=== PATIENT | female | born 1940 | race Caucasian/White ===

== ENCOUNTER 2016-07-05 09:16 | Inpatient (IN) | payer MEDICARE, BC, OTHER ==
[~2016-07-05] VITALS: Ht 161.9 cm; Wt 63.5 kg
[2016-07-05 11:00] VITALS: BP 145/57
[2016-07-05] MEDS ORDERED: MAGNESIUM SULFATE 2GM 50 ML IV PRN (11:45)
--- NOTE | 2016-07-05 11:48 | PDOC2 ---
CONSULT Date of Consult Date of Consult DATE: 07/05/16 TIME: 11:36 Reason for Consult Reason for Consult: ESRD and ? early uremic s/s Referring Physician Referring Physician: Dr Christensen Identification/Chief Complaint Chief Complaint ^ed daytime somnolences, Anorexia and needing to start Hd Problems: Source Source: Chart review, Patient History of Present Illness Reason for Visit: as dictated Past Medical History Cardiovascular: CAD, CHF, HTN, Hyperlipidemia ROS Review of System GEN: no Fevers no Chills EYES: no new Visual Complaints ENT: no EN Drainage no Hearing deficiets CVS: no Orthopnea no CP RESP: + SOB ++ ORTEGA GI: min Nausea no Vomiting : no Dysuria no Urgency HEME: no easy bruising no Palp Ly Nodes NEURO no Focal Weakness no Sz PSYCH: no Suicidal Ideation no Depression SKIN: no Rashes ENDO: no Polyuria or Polydipsia no Hot/Cold Intolerance MU SK: no Arthraigia no Myalgia Physical Exam Physical Exam General Appearance: Awake Alert Oriented x 3 In no Distress Eyes: VIsion Unchanged Conjunctiva Normal EN: No EN Drainage Mucous Memb. moist Neck: no JVD min JVP Supple no Thyromegaly CVS: S1 S2 + Murmur No Gallop No Rub + Edema Resp: no Rales no Rhonchi no Acc. Muscle use GI: BAS +ve NO Bruit Non Tender Non Distended : no CVA tenderness; no Suprapubic Tenderness SKIN: no Rashes Breast Exam deferred Mu.Sk: Adequate ROM no Muscle Atrophy Heme: Unable to palpate Obvious LAD n opalp Splenomegaly NEURO: Good Strength and Tone Cranial Nerves II - XII grossly intact Psych: somewhat Depressed no Active hallucination Vital Signs Vital Signs Date Time Temp Pulse Resp B/P Pulse Ox O2 Delivery O2 Flow Rate FiO2 07/05/16 11:00 97.7 64 18 145/57 97 Room Air 97.7 Assessment & Plan ESRD: Dialysis as below F 180 NR 3.0 Hrs 3 K 2.5 Ca 140 Na 30 HC03 Qb 350 + Qd 500+ Heparin Units Uf 0.5 Kgs or to dry weight as tolerated May give 25-50 gms of 25% Albumin if needed to maintain Hemodynamic stability Treatment plan reviewed and discussed with camera person Anemia: start Epogen; Transfuse with next HD as needed once hgb avail, just got IVFe HTN: Current BP meds reviewed. See orders for changes. Edema - reval with Uf H/o CHF (Sys + Diastolic) - Uf with HD gradually Discussed Plan of Care and prognosis etc. at length with family. ISELA LYNN MD Jul 05, 2016 11:48
[2016-07-05] MEDS ORDERED: INSU100C4 SQ ×4 (11:51→14:36)
[2016-07-05] MEDS ORDERED: GLUC1KIT IM (11:51)
[2016-07-05] MEDS ORDERED: PRAV40TA2 PO (11:51)
[2016-07-05] MEDS ORDERED: CHOL20004 PO (11:51)
[2016-07-05] MEDS ORDERED: AMLO5TAB2 PO (11:51)
[2016-07-05] MEDS ORDERED: ALLO100T PO (11:51)
[2016-07-05] MEDS ORDERED: TRAZ50TA15 PO (11:51)
[2016-07-05] MEDS ORDERED: FURO80TA72 PO (11:51)
[2016-07-05] MEDS ORDERED: AMIO200T2 PO (11:51)
[2016-07-05] MEDS ORDERED: GLUC1CAP48 PO (11:51)
[2016-07-05] MEDS ORDERED: FLUT9.9S NS (11:51)
[2016-07-05] MEDS ORDERED: FAMO20TA5 PO (11:51)
[2016-07-05] MEDS ORDERED: CARV6.25 PO (11:51)
[2016-07-05] MEDS ORDERED: NITR0.4T SL (11:51)
[2016-07-05] MEDS ORDERED: VITA1CAP PO (11:51)
[2016-07-05] MEDS ORDERED: INSU100V8 SQ (11:51)
[2016-07-05] MEDS ORDERED: TRAM50TA PO (11:51)
[2016-07-05] MEDS ORDERED: SENN176S3 PO (11:51)
[2016-07-05] MEDS ORDERED: HYDR-2867 PO (11:51)
[2016-07-05] MEDS ORDERED: OMEG1CAP38 PO (11:51)
[2016-07-05] MEDS ORDERED: FOLI1TAB16 PO (11:51)
[2016-07-05] MEDS ORDERED: METO10TA81 PO (11:51)
[2016-07-05] MEDS ORDERED: LEVO125T PO (11:51)
[2016-07-05] MEDS ORDERED: ASCO-78 PO (11:51)
[2016-07-05] MEDS ORDERED: ASPI-482 PO (11:51)
[2016-07-05 12:10] LABS: INR 2.1 (0.8-1.1); PROTHROMBIN TIME PATIENT 22.2 SEC (11.7-14.0)
[2016-07-05] MEDS ORDERED: LIDOCAINE 1% / SOD BICARB 8.4% 20 ML VIAL. IJ ONE (12:45)
[2016-07-05] MEDS ORDERED: HEPARIN for IV BOLUS 10,000 UNIT/10 ML VIAL. ONE (12:48)
--- NOTE | 2016-07-05 13:47 | PDOC ---
Exam Commander Internal Affairs Commander Internal Affairs Marlyn Batch And Furnace Manager Batch And Furnace Manager F Ndumbu Pre-Procedure Diagnosis Pre-Procedure Diagnosis New ESRD. Coagulopathy. Temp HDC requested for HD. Post-Procedure Diagnosis Post-Procedure Diagnosis Same Procedure Performed Procedure Performed Image guided temp HDC insertion today---tunneled HDC insertion planned for . Type of Anesthesia Type of Anesthesia Local Estimated Blood Loss EBL: Minimal Drain/Tubes Drains/Tubes Left IJ 14F 20cm Schon Temp HDC Condition of Patient Condition of Patient Stable. No apparent complication. Disposition Disposition From IR return to [facility]. F/u with Renal. OK to use Temp HDC. Full report to follow. Conversion from Temp to tunneled HDC planned . ZARIA FENG MD Jul 05, 2016 13:47
[2016-07-05 14:37] VITALS: BP 140/60
[2016-07-05] MEDS ORDERED: NITROGLYCERIN SUBLINGUAL 0.4 MG BOTTLE OF 25. SL PRN (14:45)
[2016-07-05] MEDS ORDERED: DEXTROSE 50% 25 GM / 50ML DISP.SYRIN. IV PRN (14:45)
[2016-07-05] MEDS ORDERED: METOCLOPRAMIDE 10 MG TABLET PO PRN (14:45)
[2016-07-05] MEDS: ALLOPURINOL 100 MG TABLET. PO SCH (15:37)
[2016-07-05] MEDS: LEVOTHYROXINE 125 MCG TABLET PO SCH (15:37)
[2016-07-05] MEDS: FOLIC ACID 1 MG TABLET PO SCH (15:37)
[2016-07-05] MEDS: AMIODARONE HCL 200 MG TABLET PO SCH (15:37)
--- NOTE | 2016-07-05 16:14 | RAD ---
PA and lateral chest radiographs 07/05/2016 Clinical history: CHF. PA and lateral digital radiographs of the chest were obtained. The patient is status post CABG procedure. The cardiac silhouette is mildly enlarged. The thoracic aorta is tortuous. Prominence of the interstitial markings in both lungs is seen. Septal lines are seen bilaterally. These findings are consistent with interstitial pulmonary edema related to CHF. There is a minimal left pleural effusion. No area of consolidation is seen. No pneumothorax is noted. There is diffuse osteopenia of the visualized bony structures. Degenerative changes are seen involving the thoracic spine. Impression: Findings consistent with CHF.
[2016-07-05] MEDS ORDERED: WARF2TAB7 PO (16:36)
--- NOTE | 2016-07-05 16:52 | PDOC1 ---
History and Physical Date of Admission Date of Admission DATE: 07/05/16 TIME: 16:46 Identification/Chief Complaint Chief Complaint ESRD Source Source: Chart review, Patient History of Present Illness History of Present Illness pt has long hx CKD 4, was in Dr. Matos clinic today for f/u, labs had worsened , now ESRD, clinic called for direct admit for ESRD, some change in LE edema, pt largely feels well she has 66 yr history of Dm1, has very precise insulin doses, has worsening retinopathy, and reports is nearly blind, has known about CKD for some time, but was not wanting to start tx for ESRD Past Medical History Cardiovascular: CAD, CHF, HTN, Hyperlipidemia Pulmonary: No pertinent hx GI: No pertinent hx Heme/Onc: No pertinent hx Hepatobiliary: No pertinent hx Psych: No pertinent hx Rheumatologic: No pertinent hx Infectious disease: No pertinent hx Endocrine: Diabetes Family History Family History: No Significant Social History Smoke: No ALCOHOL: none Drugs: None Current Problem List Problem List Problems Medical Problems: (1) Acute renal failure (ARF) Status: Acute Problems: Current Medications Current Medications Current Medications Magnesium Sulfate/ Dextrose (Magnesium Sulfate PREMIX 2GM) 50 ml @ 25 mls/hr PRN DAILY PRN IV for Mag < 1.7 on am labs; Start 07/05/16 at 11:45 Heparin Sodium (Porcine) 2,500 unit 1X ONCE INT CAT Last administered on 13:15; Start 07/05/16 at 12:45; Stop 07/05/16 at 12:46; Status DC Heparin Sodium/ Sodium Chloride 1,000 unit 1X ONCE IV Last administered on 07/05 13:27; Start 07/05/16 at 12:45; Stop 07/05/16 at 12:46; Status DC Lidocaine/Sodium Bicarbonate (Buffered Lidocaine 1%) 3 ml 1X ONCE IJ Last administered on 07/05/16 13:26; Start 07/05/16 at 12:45; Stop 07/05/16 at 12:46; Status DC Heparin Sodium (Porcine) 10,000 unit STK-MED ONCE .ROUTE ; Start 07/05/16 at 12: 48; Stop 07/05/16 at 12:49; Status DC Allopurinol (Zyloprim) 100 mg DAILY PO Last administered on 07/05/16 15:37; Start 07/05/16 at 15:30 Amiodarone HCl (Cordarone) 200 mg DAILY PO Last administered on 07/05/16 15:37 ; Start 07/05/16 at 15:30 Amlodipine Besylate (Norvasc) 5 mg HS PO ; Start 07/05/16 at 21:00 Aspirin (Ecotrin) 81 mg BID PO ; Start 07/05/16 at 21:00 Carvedilol (Coreg) 6.25 mg BIDWMEALS PO ; Start 07/05/16 at 17:00 Famotidine (Pepcid) 20 mg BID PO ; Start 07/05/16 at 21:00 Folic Acid (Folic Acid) 1 mg DAILY PO Last administered on 07/05/16 15:37; Start 07/05/16 at 15:30 Hydralazine HCl (Apresoline) 10 mg BID PO ; Start 07/05/16 at 21:00 Levothyroxine Sodium (Synthroid) 125 mcg DAILYAC PO Last administered on 15:37; Start 07/05/16 at 15:30 Metoclopramide HCl (Reglan) 10 mg PRN QID PRN PO NAUSEA; Start 07/05/16 at 14:45 Nitroglycerin (Nitrostat) 0.4 mg PRN Q5MIN PRN SL CHEST PAIN; Start 07/05/16 at 14:45 Sennosides (Senna) 8.6 mg QHS PO ; Start 07/05/16 at 21:00 Tramadol HCl (Ultram) 50 mg BID PO ; Start 07/05/16 at 21:00 Trazodone HCl (Desyrel) 50 mg HS PO ; Start 07/05/16 at 21:00 Fluticasone Propionate (Flonase) 2 spray DAILY NS ; Start 07/06/16 at 09:00 Insulin Aspart (Novolog) 2 units DAILYWSUP SQ ; Start 07/05/16 at 17:00 Insulin Aspart (Novolog) 5 units DAILYWLUN SQ ; Start 07/06/16 at 12:00 Insulin Aspart (Novolog) 6 units DAILYWBKFT SQ ; Start 07/06/16 at 08:00 Insulin Detemir (Levemir) 7 units QHS SQ ; Start 07/05/16 at 21:00 Fish Oil (Fish Oil) 1,000 mg DAILY PO ; Start 07/06/16 at 09:00 Atorvastatin Calcium (Lipitor) 10 mg QHS PO ; Start 07/05/16 at 21:00 Insulin Aspart (Novolog) 0-5 UNITS TIDWMEALS SQ ; Start 07/05/16 at 17:00 Dextrose 12.5 gm PRN Q15MIN PRN IV SEE COMMENTS; Start 07/05/16 at 14:45 Active Scripts Active Reported Warfarin Sodium 2 Mg Tablet 2 Mg PO DAILY Novolog (Insulin Aspart) 100 Unit/1 Ml Cartridge 2 Unit SQ DAILYWSUP Novolog (Insulin Aspart) 100 Unit/1 Ml Cartridge 5 Unit SQ DAILYWLUN Novolog (Insulin Aspart) 100 Unit/1 Ml Cartridge 6 Unit SQ DAILYWBKFT Hydralazine Hcl 10 Mg Tablet 10 Mg PO BID Vitamin B Complex 1 Each Capsule 1 Each PO Vitamin C (Ascorbate Calcium) 500 Mg Tablet 500 Mg PO Vitamin D-3 (Cholecalciferol (Vitamin D3)) 2,000 Unit Capsule 1,000 Unit PO Tramadol Hcl 50 Mg Tablet 1 Tab PO BID Trazodone Hcl 50 Mg Tablet 50 Mg PO HS Senna (Senna Brave Extract) 176 Mg/5 Ml Syrup 176 Mg PO HS Reglan (Metoclopramide Hcl) 10 Mg Tablet 10 Mg PO QIDACHS PRN Pravastatin Sodium 40 Mg Tablet 40 Mg PO HS Famotidine 20 Mg Tablet 20 Mg PO BID [place] 3 Fish Oil Softgel ([place]-3 Fatty Acids/Fish Oil) 1 Each Capsule. 1 Each PO DAILY Nitrostat (Nitroglycerin) 0.4 Mg Tab.subl 0.4 Mg SL PRN Q5MIN PRN Synthroid (Levothyroxine Sodium) 125 Mcg Tablet 125 Mcg PO DAILYAC Lasix (Furosemide) 80 Mg Tablet 80 Mg PO BID Lantus (Insulin Glargine,Hum.rec.anlog) 100 Unit/1 Ml Vial 7 Unit SQ HS Glucosamine & Chondroitin Cap (Gluc 2KCL/Chondr/Ashley Hy/Hy Ac) 1 Each Capsule 1 Each PO BID Glucagon Emergency Kit (Glucagon,Human Recombinant) 1 Mg Kit 1 Mg IM Folic Acid 1 Mg Tablet 1 Mg PO DAILY Flonase Allergy Relief (Fluticasone Propionate) 9.9 Ml [place].susp 2 Sprays NS DAILY Coreg (Carvedilol) 6.25 Mg Tablet 1 Tab PO BID Aspir 81 (Aspirin) 81 Mg Tablet.dr 1 Tab PO BID Amiodarone Hcl 200 Mg Tablet 1 Tab PO DAILY Allopurinol 100 Mg Tablet 1 Tab PO DAILY Amlodipine Besylate 5 Mg Tablet 5 Mg PO HS Allergies Allergies: Coded Allergies: Penicillins (Verified Allergy, Intermediate, 07/05/16) iodine (Verified Allergy, Intermediate, 07/05/16) isosorbide (Verified Allergy, Intermediate, 07/05/16) metoprolol (Verified Allergy, Intermediate, 07/05/16) nitrofurantoin (Verified Allergy, Intermediate, 07/05/16) povidone (Verified Allergy, Intermediate, 07/05/16) sulfamethoxazole (Verified Allergy, Intermediate, 07/05/16) trimethoprim (Verified Allergy, Intermediate, 07/05/16) ROS General: YES: Fatigue, No: Appetite, Chills, Malaise, Night Sweats, Other PSYCHOLOGICAL ROS: No: Anxiety, Behavioral Disorder, Concentration difficultie , Decreased libido, Depression, Disorientation, Hallucinations, Hostility, Irritablity, Memory difficulties, Mood Swings, Obsessive thoughts, Other, Physical abuse, Sexual abuse, Sleep disturbances, Suicidal ideation Eyes: Yes Blurry vision, Yes Decreased vision, Yes Loss of vision, Yes Uses glasses, No Double vision, No Dry eyes, No Excessive tearing, No Eye Pain, No Itchy Eyes, No Other, No Photophobia, No Scotomata, No Uses contacts HEENT: No: Epistaxis, Heacaches, Hearing change, Nasal congestion, Nasal discharge, Oral lesions, Other, Sinus pain, Sneezing, Snoring, Sore Throat, Tinnitus, Vertigo, Visual Changes, Vocal changes Respiratory: No: Cough, Hemoptysis, Orthopnea, Other, Pleuritic Pain, SOB with excertion, Shortness of breath, Sputum Changes, Stridor, Tachypnea, Wheezing Cardiovascular: No Chest Pain, No Edema, No Lt Headedness, No Orthopnea, No Other, No Palpitations, No Paroxysmal Noc. Dyspnea Gastrointestinal: No Abdominal Pain, No Constipation, No Diarrhea, No Hematochezia, No Melena, No Nausea, No Other, No Vomiting Genitourinary: No , No , No , No , No , No , No , No Discharge, No Dysuria, No Flank Pain, No Frequency, No Hematuria, No Incontinence, No Other, No Pain, No Retention, No Urgency Neurological: No Behavorial Changes, No Bowel/Bladder ControlChng, No Confusion , No Dizziness, No Gait Disturbance, No Headaches, No Impaired Coord/balance, No Memory Loss, No Numbness/Tingling, No Other, No Seizures, No Speech Problems , No Tremors, No Visual Changes, No Weakness Skin: No Acne, No Dry Skin, No Eczema, No Hair Changes, No Lumps, No Mole Changes, No Mottling, No Nail Changes, No Other, No Pruritus, No Rash, No Skin Lesion Changes Physical Exam General: Alert, Oriented X3, Cooperative, No acute distress HEENT: Atraumatic, PERRLA, Other (poor vision, grossly) Lungs: Clear to auscultation Heart: S1S2, no murmurs Abdomen: Normal bowel sounds, Soft Rectal Exam: not examined Extremities: No clubbing, Normal pulses, Other (tr edema) Skin: No rashes, No significant lesion Neuro: Sensation intact Psych/Mental Status: Mood NL Vitals Vitals Vital Signs Date Time Temp Pulse Resp B/P Pulse Ox O2 Delivery O2 Flow Rate FiO2 07/05/16 15:37 65 140/60 07/05/16 14:37 97.7 18 97 Room Air 97.7 Labs Labs Laboratory Tests Test 07/05/16 10:55 07/05/16 11:04 Prothrombin Time 22.2SEC (11.7-14.0) Prothromb Time International Ratio 2.1 (0.8-1.1) Glucose (Fingerstick) 210mg/dL (70-99) Laboratory Tests Test 07/05/16 10:55 07/05/16 11:04 Prothrombin Time 22.2SEC (11.7-14.0) Prothromb Time International Ratio 2.1 (0.8-1.1) Glucose (Fingerstick) 210mg/dL (70-99) VTE Prophylaxis Ordered VTE Prophylaxis Devices: Yes VTE Pharmacological Prophylaxi: No Assessment/Plan Assessment/Plan ESRD, progression of disease nephropathy likely from Dm1, and htn DM1, good control, check A1c, very precise insulin reg. 7 Lantus, 6/5/2 w/ meals SSI labs pending, done by renal clinic today, will HD today after IR places tunneled cath hypothyroid, 125 htn, coreg, anemia, check iron panel, Renal plans to start Epo CHF, chronic combines systolic and diastolic, stable, insomnia, trazodone admitted LUIS SEXTON MD Jul 05, 2016 16:52
[2016-07-05] MEDS: CARVEDILOL 6.25 MG TABLET PO SCH (16:57)
[2016-07-05] MEDS: INSULIN ASPART 300 UNITS/3 ML INSULN.PEN SQ SCH ×2 (17:02→17:03)
--- NOTE | 2016-07-05 18:01 | PDOC ---
Dialysis Progress Note Dialysis Note Dialysis Note Seen on Hemodialysis, tolerating treatment Well for now Vitals on Hemodialysis: 132/64 63 afeb 16 General Appearance: Awake: Alert Oriented x 3 Neck: No JVD or JVP Chest: CTA [place]ale Heart: S1 S2 Abdomen - Soft NTND Extremities - + Edema ESRD: Dialysis as previously ntoed in consult note Vitals Vital Signs Vital Signs Date Time Temp Pulse Resp B/P Pulse Ox O2 Delivery O2 Flow Rate FiO2 07/05/16 16:57 65 140/60 07/05/16 14:37 97.7 18 97 Room Air 97.7 Labs Last Labs Laboratory Tests Test 07/05/16 10:55 07/05/16 11:04 Prothrombin Time 22.2SEC (11.7-14.0) Prothromb Time International Ratio 2.1 (0.8-1.1) Glucose (Fingerstick) 210mg/dL (70-99) Laboratory Tests Test 07/05/16 10:55 07/05/16 11:04 Prothrombin Time 22.2SEC (11.7-14.0) Prothromb Time International Ratio 2.1 (0.8-1.1) Glucose (Fingerstick) 210mg/dL (70-99) Assessment Assessment Problems Medical Problems: (1) Acute renal failure (ARF) Status: Acute Problems: Plan Plan of Care Problems Medical Problems: (1) Acute renal failure (ARF) Status: Acute ISELA LYNN MD Jul 05, 2016 18:01
[2016-07-05] MEDS ORDERED: IV NORMAL SALINE 1000ML BAG 1,000 ML IV PRN (18:41)
[2016-07-05] MEDS ORDERED: 0.9 % SODIUM CHLORIDE 10 ML DISP.SYRIN. IV PRN ×2 (18:45)
[2016-07-05] MEDS ORDERED: DIALYSIS PATIENT. MC PRN ×2 (18:45)
[2016-07-05] MEDS ORDERED: FAMOTIDINE 20 MG TABLET. PO SCH (21:00)
[2016-07-05] MEDS: SENNOSIDES 8.6 MG TABLET PO SCH (21:50)
[2016-07-05] MEDS: ATORVASTATIN CALCIUM 10 MG TABLET. PO SCH (21:50)
[2016-07-05 21:51] VITALS: BP 128/54
[2016-07-05] MEDS: TRAMADOL 50 MG TABLET. PO SCH (21:51)
[2016-07-05] MEDS: traZODone 50 MG TABLET. PO SCH (21:51)
[2016-07-05] MEDS: ASPIRIN ENTERIC COATED 81 MG TABLET.DR. PO SCH (21:51)
[2016-07-05] MEDS: AMLODIPINE BESYLATE 5 MG TABLET PO SCH (21:53)
[2016-07-05] MEDS: HYDRALAZINE 10 MG TABLET PO SCH (21:54)
[2016-07-05] MEDS: INSULIN DETEMIR 300 UNITS/3 ML INSULN.PEN. SQ SCH (22:03)
[2016-07-05 23:00] VITALS: BP 110/46
[2016-07-06 00:10] LABS: HEP A IGM ABDY Negative (Negative); HEP B SURFACE ABDY Non Reactive (.)
[2016-07-06 03:00] VITALS: BP 126/46
--- NOTE | 2016-07-06 04:47 | CONS ---
DATE OF CONSULTATION: PRIMARY PHYSICIAN: Dr. Leanna Christensen. REASON FOR CONSULTATION: New onset ESRD, needing dialysis. HISTORY OF PRESENT ILLNESS: The patient is a pleasant 76-year-old female who I follow for her ESRD needs. She has had the dwindles since the beginning of this year. She is known to have an unilateral small kidney and is known to be a type 1 diabetic. She was [facility] at [facility] for [facility]F exacerbation. She was noted to have an echo, which showed EF of 40%. Her diuretics were increased whereby her creatinine has gotten to the point where she has a creatinine of 3.0 and a GFR of 15.3. When she last came to see me, we had educated her about the upcoming need for dialysis. She is noted to have significant dyspnea on exertion. She was also orthopneic when she came to see us. She did lose some weight, but she claims she is now starting to gain the weight back. Her claims she has no energy. They have noted that her appetite has dwindled as well as she has had increasing daytime somnolence also. In this setting, they have agreed to proceed with initiation of dialysis and they called the office yesterday. We were unable to coordinate AV access placement this time and then she will be started with a temporary dialysis catheter and Perm-A-Cath eventually. PAST MEDICAL HISTORY: 1. Stage IV/V CKD, hypertension, hyperlipidemia, type 1 diabetes with retinopathy, coronary artery disease with PTCA, diastolic and systolic CHF with EF 40%, breast cancer with infiltrating ductal carcinoma, poorly differentiated, status post chemoradiation. 2. Iron deficiency anemia, status post recent recent IV iron dose. 3. Hysterectomy. 4. Right-sided lumpectomy. 5. Tonsillectomy. 6. CABG. 7. Cataract surgery. FAMILY HISTORY: Negative for diabetes or kidney problems. SOCIAL HISTORY: , lives with her . Denies smoking. Currently, she is a former smoker, quit in 1977. ALLERGIES: BACTRIM, IMDUR, MACRODANTIN, PENICILLIN, POVIDONE IODINE AND TOPROL-XL. For rest of the details, see electronic records. ISELA LYNN MD DR: KANWAL/deb JOB#: [id number] / [id number]
[2016-07-06] MEDS: LEVOTHYROXINE 125 MCG TABLET PO SCH (06:24)
[2016-07-06 06:32] LABS: % SAT IRON 99 % (15-34); IRON,SERUM 219 ug/dL (50-170)
[2016-07-06 06:36] LABS: ALBUMIN 2.8 g/dL (3.4-5.0); GFR 24.4; PHOSPHORUS 2.5 mg/dL (2.6-4.7); POTASSIUM 3.7 mmol/L (3.5-5.1)
[2016-07-06 07:15] VITALS: BP 129/55
--- NOTE | 2016-07-06 07:16 | RAD ---
Ultrasound and fluoro guided left IJ temporary hemodialysis catheter Indication: 76-year-old female with end stage renal disease. Dialysis catheter access is required for hemodialysis. Her INR is elevated, therefore, temporary dialysis catheter insertion has been requested today, followed by conversion to tunneled dialysis catheter in 2 days, following reversal of her coagulopathy. Fluoro time: 0.1 minutes Kerma-Area Product: 1 Gycm2 Anesthesia: Local only Sterility: All elements of maximal sterile barrier technique, including the use of a cap, mask, sterile gown, sterile gloves, large sterile sheet, appropriate hand hygiene, and 2% chlorhexidine for cutaneous antisepsis (or acceptable alternative antiseptic per current guidelines) were utilized. Procedure: Informed consent was obtained from the patient. She was placed supine on the angiography table. Preliminary ultrasound examination of left neck revealed patency of left internal jugular vein, which was documented with a single hard copy ultrasound image. Left neck was then prepped and draped in the usual sterile fashion, utilizing all elements of maximal sterile barrier technique, as described above. Using aseptic technique, local anesthesia, direct ultrasound guidance, and the micropuncture system, successful percutaneous entry was achieved into left internal jugular vein. The left IJ venostomy tract was then dilated and a 14 [place] 20cm Schon temporary hemodialysis catheter was easily advanced centrally over an angiographic guidewire, and was positioned with its tip at the level of upper right atrium utilizing fluoroscopic guidance. This catheter was documented to flush and aspirate normally, was packed, and was secured at the left neck exit site utilizing suture and sterile dressing. Patient tolerated the procedure well without apparent complication. Satisfactory position of the dialysis catheter was confirmed with a single fluoroscopic spot image. Impression: Successful, uneventful ultrasound and fluoro guided placement of left IJ 14 Irish 20cm Schon temporary hemodialysis catheter, as described.
[2016-07-06] MEDS: INSULIN ASPART 300 UNITS/3 ML INSULN.PEN SQ SCH ×6 (08:00→17:36)
[2016-07-06] MEDS: FLUTICASONE 50MCG/NASAL SPRAY 16GM BOTTLE. NS SCH (09:00)
[2016-07-06] MEDS: TRAMADOL 50 MG TABLET. PO SCH ×2 (09:00→21:23)
[2016-07-06] MEDS ORDERED: IV NORMAL SALINE 1000ML BAG 1,000 ML IV PRN (09:41)
[2016-07-06] MEDS ORDERED: 0.9 % SODIUM CHLORIDE 10 ML DISP.SYRIN. IV PRN ×2 (09:45)
[2016-07-06] MEDS ORDERED: ACETAMINOPHEN 500 MG TABLET PO PRN (09:45)
[2016-07-06] MEDS ORDERED: CLONIDINE HCL 0.1 MG TABLET PO PRN (09:45)
[2016-07-06] MEDS ORDERED: DIALYSIS PATIENT. MC PRN (09:45)
[2016-07-06] MEDS ORDERED: ALBUMIN HUMAN 25% 200 ML IV PRN (09:45)
[2016-07-06] MEDS ORDERED: LABETALOL 20 MG/4 ML DISP.SYRIN. IVP PRN (09:45)
[2016-07-06] MEDS ORDERED: DIPHENHYDRAMINE 50 MG/ML VIAL IV PRN (09:45)
--- NOTE | 2016-07-06 10:16 | PDOC ---
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 Dm1, and htn DM1, good control, hypothyroid, htn, anemia,of CKD CHF, chronic combines systolic and diastolic, stable, insomnia, History of Present Illness History of Present Illness Doing well HAd first run HD yesterday - did good For second run today Crea down to 2 from 3 Hgb stable Planned for oP hD PLAN: for OP HD - if that is [facility] plan of renal Dw GERBER LAbs cyndi Vitals Vitals Vital Signs Date Time Temp Pulse Resp B/P Pulse Ox O2 Delivery O2 Flow Rate FiO2 07/06/16 08:00 Room Air 07/06/16 07:15 98.0 62 20 129/55 96 98.0 Physical Exam General: Alert, Oriented X3, Cooperative, No acute distress Abdomen: Normal bowel sounds, Soft Extremities: No clubbing, Normal pulses, Other (tr edema) Skin: No rashes, No significant lesion Labs LABS Laboratory Tests Test 07/05/16 10:55 07/05/16 11:04 07/05/16 16:08 07/05/16 21:58 Prothrombin Time 22.2SEC (11.7-14.0) Prothromb Time International Ratio 2.1 (0.8-1.1) Hepatitis A IgM Antibody Negative (Negative) Hepatitis B Surface Antigen Negative (Negative) Hepatitis B Surface Antibody Non reactive (.) Hepatitis B Core Total Antibody Negative (Negative) Hepatitis B Core IgM Antibody Negative (Negative) Hepatitis C Antibody <0.1s/co ratio (0.0-0.9) Glucose (Fingerstick) 210mg/dL (70-99) 381mg/dL (70-99) 147mg/dL (70-99) Test 07/06/16 05:35 07/06/16 07:41 Hemoglobin 9.1g/dL (12.0-15.5) Sodium Level 138mmol/L (136-145) Potassium Level 3.7mmol/L (3.5-5.1) Chloride Level 105mmol/L (98-107) Carbon Dioxide Level 28mmol/L (21-32) Anion Gap 5 (6-14) Blood Urea Nitrogen 30mg/dL (7-20) Creatinine 2.0mg/dL (0.6-1.0) Estimated GFR (Cockcroft-Gault) 24.4 Glucose Level 131mg/dL (70-99) Calcium Level 9.0mg/dL (8.5-10.1) Phosphorus Level 2.5mg/dL (2.6-4.7) Magnesium Level 2.1mg/dL (1.8-2.4) Iron Level 219ug/dL (50-170) Total Iron Binding Capacity 222ug/dL (250-450) Iron Saturation 99% (15-34) Albumin 2.8g/dL (3.4-5.0) Glucose (Fingerstick) 122mg/dL (70-99) Review of Systems Review of Systems all 14 pt negative Assessment and Plan Assessmemt and Plan Problems Medical Problems: (1) Acute renal failure (ARF) Status: Acute Problems: Comment Review of Relevant I have reviewed the following items bakari (where applicable) has been applied. Labs Laboratory Tests Test 07/05/16 10:55 07/05/16 11:04 07/05/16 16:08 07/05/16 21:58 Prothrombin Time 22.2SEC (11.7-14.0) Prothromb Time International Ratio 2.1 (0.8-1.1) Hepatitis A IgM Antibody Negative (Negative) Hepatitis B Surface Antigen Negative (Negative) Hepatitis B Surface Antibody Non reactive (.) Hepatitis B Core Total Antibody Negative (Negative) Hepatitis B Core IgM Antibody Negative (Negative) Hepatitis C Antibody <0.1s/co ratio (0.0-0.9) Glucose (Fingerstick) 210mg/dL (70-99) 381mg/dL (70-99) 147mg/dL (70-99) Test 07/06/16 05:35 07/06/16 07:41 Hemoglobin 9.1g/dL (12.0-15.5) Sodium Level 138mmol/L (136-145) Potassium Level 3.7mmol/L (3.5-5.1) Chloride Level 105mmol/L (98-107) Carbon Dioxide Level 28mmol/L (21-32) Anion Gap 5 (6-14) Blood Urea Nitrogen 30mg/dL (7-20) Creatinine 2.0mg/dL (0.6-1.0) Estimated GFR (Cockcroft-Gault) 24.4 Glucose Level 131mg/dL (70-99) Calcium Level 9.0mg/dL (8.5-10.1) Phosphorus Level 2.5mg/dL (2.6-4.7) Magnesium Level 2.1mg/dL (1.8-2.4) Iron Level 219ug/dL (50-170) Total Iron Binding Capacity 222ug/dL (250-450) Iron Saturation 99% (15-34) Albumin 2.8g/dL (3.4-5.0) Glucose (Fingerstick) 122mg/dL (70-99) Laboratory Tests Test 07/05/16 10:55 07/05/16 11:04 07/05/16 16:08 07/05/16 21:58 Prothrombin Time 22.2SEC (11.7-14.0) Prothromb Time International Ratio 2.1 (0.8-1.1) Hepatitis A IgM Antibody Negative (Negative) Hepatitis B Surface Antigen Negative (Negative) Hepatitis B Surface Antibody Non reactive (.) Hepatitis B Core Total Antibody Negative (Negative) Hepatitis B Core IgM Antibody Negative (Negative) Hepatitis C Antibody <0.1s/co ratio (0.0-0.9) Glucose (Fingerstick) 210mg/dL (70-99) 381mg/dL (70-99) 147mg/dL (70-99) Test 07/06/16 05:35 07/06/16 07:41 Hemoglobin 9.1g/dL (12.0-15.5) Sodium Level 138mmol/L (136-145) Potassium Level 3.7mmol/L (3.5-5.1) Chloride Level 105mmol/L (98-107) Carbon Dioxide Level 28mmol/L (21-32) Anion Gap 5 (6-14) Blood Urea Nitrogen 30mg/dL (7-20) Creatinine 2.0mg/dL (0.6-1.0) Estimated GFR (Cockcroft-Gault) 24.4 Glucose Level 131mg/dL (70-99) Calcium Level 9.0mg/dL (8.5-10.1) Phosphorus Level 2.5mg/dL (2.6-4.7) Magnesium Level 2.1mg/dL (1.8-2.4) Iron Level 219ug/dL (50-170) Total Iron Binding Capacity 222ug/dL (250-450) Iron Saturation 99% (15-34) Albumin 2.8g/dL (3.4-5.0) Glucose (Fingerstick) 122mg/dL (70-99) Medications Current Medications Magnesium Sulfate/ Dextrose (Magnesium Sulfate PREMIX 2GM) 50 ml @ 25 mls/hr PRN DAILY PRN IV for Mag < 1.7 on am labs; Start 07/05/16 at 11:45 Heparin Sodium (Porcine) 2,500 unit 1X ONCE INT CAT Last administered on 13:15; Start 07/05/16 at 12:45; Stop 07/05/16 at 12:46; Status DC Heparin Sodium/ Sodium Chloride 1,000 unit 1X ONCE IV Last administered on 07/05 13:27; Start 07/05/16 at 12:45; Stop 07/05/16 at 12:46; Status DC Lidocaine/Sodium Bicarbonate (Buffered Lidocaine 1%) 3 ml 1X ONCE IJ Last administered on 07/05/16 13:26; Start 07/05/16 at 12:45; Stop 07/05/16 at 12:46; Status DC Heparin Sodium (Porcine) 10,000 unit STK-MED ONCE .ROUTE ; Start 07/05/16 at 12: 48; Stop 07/05/16 at 12:49; Status DC Allopurinol (Zyloprim) 100 mg DAILY PO Last administered on 07/05/16 15:37; Start 07/05/16 at 15:30 Amiodarone HCl (Cordarone) 200 mg DAILY PO Last administered on 07/05/16 15:37 ; Start 07/05/16 at 15:30 Amlodipine Besylate (Norvasc) 5 mg HS PO Last administered on 07/05/16 21:53; Start 07/05/16 at 21:00 Aspirin (Ecotrin) 81 mg BID PO Last administered on 07/05/16 21:51; Start at 21:00 Carvedilol (Coreg) 6.25 mg BIDWMEALS PO Last administered on 07/05/16 16:57; Start 07/05/16 at 17:00 Famotidine (Pepcid) 20 mg BID PO ; Start 07/05/16 at 21:00; Stop 07/05/16 at 21:00 ; Status DC Folic Acid (Folic Acid) 1 mg DAILY PO Last administered on 07/05/16 15:37; Start 07/05/16 at 15:30 Hydralazine HCl (Apresoline) 10 mg BID PO Last administered on 07/05/16 21:54; Start 07/05/16 at 21:00 Levothyroxine Sodium (Synthroid) 125 mcg DAILYAC PO Last administered on 06:24; Start 07/05/16 at 15:30 Metoclopramide HCl (Reglan) 10 mg PRN QID PRN PO NAUSEA; Start 07/05/16 at 14:45 Nitroglycerin (Nitrostat) 0.4 mg PRN Q5MIN PRN SL CHEST PAIN; Start 07/05/16 at 14:45 Sennosides (Senna) 8.6 mg QHS PO Last administered on 07/05/16 21:50; Start 07/05/16 at 21:00 Tramadol HCl (Ultram) 50 mg BID PO Last administered on 07/05/16 21:51; Start 07/05/16 at 21:00 Trazodone HCl (Desyrel) 50 mg HS PO Last administered on 07/05/16 21:51; Start 07/05/16 at 21:00 Fluticasone Propionate (Flonase) 2 spray DAILY NS ; Start 07/06/16 at 09:00 Insulin Aspart (Novolog) 2 units DAILYWSUP SQ Last administered on 07/05/16 17: 02; Start 07/05/16 at 17:00 Insulin Aspart (Novolog) 5 units DAILYWLUN SQ ; Start 07/06/16 at 12:00 Insulin Aspart (Novolog) 6 units DAILYWBKFT SQ ; Start 07/06/16 at 08:00 Insulin Detemir (Levemir) 7 units QHS SQ Last administered on 07/05/16 22:03; Start 07/05/16 at 21:00 Fish Oil (Fish Oil) 1,000 mg DAILY PO ; Start 07/06/16 at 09:00 Atorvastatin Calcium (Lipitor) 10 mg QHS PO Last administered on 07/05/16 21:50 ; Start 07/05/16 at 21:00 Insulin Aspart (Novolog) 0-5 UNITS TIDWMEALS SQ Last administered on 3/7/17at 17:03; Start 07/05/16 at 17:00 Dextrose 12.5 gm 12.5 gm PRN Q15MIN PRN IV SEE COMMENTS; Start 07/05/16 at 14:45 Sodium Chloride (Iv Sodium Chloride 0.9% 1000ml Bag) 1,000 ml @ 1,000 mls/hr Q1H PRN IV hypotension; Start 07/05/16 at 18:41; Stop 07/06/16 at 00:40; Status DC Sodium Chloride (Normal Saline Flush) 10 ml 1X PRN PRN IV AP catheter pack; Start 07/05/16 at 18:45; Stop 07/06/16 at 18:44 Sodium Chloride (Normal Saline Flush) 10 ml 1X PRN PRN IV [employer] catheter pack; Start 07/05/16 at 18:45; Stop 07/06/16 at 18:44 Info (PHARMACY MONITORING -- do not chart) 1 each PRN DAILY PRN MC SEE COMMENTS ; Start 07/05/16 at 18:45; Status UNV Info (PHARMACY MONITORING -- do not chart) 1 each PRN DAILY PRN MC SEE COMMENTS ; Start 07/05/16 at 18:45 Famotidine 20 mg 20 mg Q48H PO ; Start 07/06/16 at 09:00 Sodium Chloride 1,000 ml @ 1,000 mls/hr Q1H PRN IV hypotension; Start 07/06/16 at 09:41; Stop 07/06/16 at 15:40 Albumin Human (Albuminar) 200 ml @ 200 mls/hr 1X PRN PRN IV Hypotension; Start 07/06/16 at 09:45; Stop 07/06/16 at 15:44 Acetaminophen (Tylenol) 500 mg 1X PRN PRN PO MILD PAIN / TEMP; Start 07/06/16 at 09:45; Stop 07/07/16 at 09:44 Diphenhydramine HCl (Benadryl) 25 mg 1X PRN PRN IV ITCHING; Start 07/06/16 at 09 :45; Stop 07/07/16 at 09:44 Sodium Chloride (Normal Saline Flush) 10 ml 1X PRN PRN IV AP catheter pack; Start 07/06/16 at 09:45; Stop 07/07/16 at 09:44 Sodium Chloride (Normal Saline Flush) 10 ml 1X PRN PRN IV [employer] catheter pack; Start 07/06/16 at 09:45; Stop 07/07/16 at 09:44 Labetalol HCl (Normodyne) 10 mg PRN Q1HR PRN IVP SBP > 180; Start 07/06/16 at 09 :45; Stop 07/07/16 at 09:44 Clonidine HCl (Catapres) 0.1 mg 1X PRN PRN PO SBP > 180; Start 07/06/16 at 09:45 ; Stop 07/07/16 at 09:44 Info (PHARMACY MONITORING -- do not chart) 1 each PRN DAILY PRN MC SEE COMMENTS ; Start 07/06/16 at 09:45; Status UNV Active Scripts Active Reported Warfarin Sodium 2 Mg Tablet 2 Mg PO DAILY Novolog (Insulin Aspart) 100 Unit/1 Ml Cartridge 2 Unit SQ DAILYWSUP Novolog (Insulin Aspart) 100 Unit/1 Ml Cartridge 5 Unit SQ DAILYWLUN Novolog (Insulin Aspart) 100 Unit/1 Ml Cartridge 6 Unit SQ DAILYWBKFT Hydralazine Hcl 10 Mg Tablet 10 Mg PO BID Vitamin B Complex 1 Each Capsule 1 Each PO Vitamin C (Ascorbate Calcium) 500 Mg Tablet 500 Mg PO Vitamin D-3 (Cholecalciferol (Vitamin D3)) 2,000 Unit Capsule 1,000 Unit PO Tramadol Hcl 50 Mg Tablet 1 Tab PO BID Trazodone Hcl 50 Mg Tablet 50 Mg PO HS Senna (Senna [place] Extract) 176 Mg/5 Ml Syrup 176 Mg PO HS Reglan (Metoclopramide Hcl) 10 Mg Tablet 10 Mg PO QIDACHS PRN Pravastatin Sodium 40 Mg Tablet 40 Mg PO HS Famotidine 20 Mg Tablet 20 Mg PO BID [place] 3 Fish Oil Softgel ([place]-3 Fatty Acids/Fish Oil) 1 Each Capsule.dr 1 Each PO DAILY Nitrostat (Nitroglycerin) 0.4 Mg Tab.subl 0.4 Mg SL PRN Q5MIN PRN Synthroid (Levothyroxine Sodium) 125 Mcg Tablet 125 Mcg PO DAILYAC Lasix (Furosemide) 80 Mg Tablet 80 Mg PO BID Lantus (Insulin Glargine,Hum.rec.anlog) 100 Unit/1 Ml Vial 7 Unit SQ HS Glucosamine & Chondroitin Cap (Gluc 2KCL/Chondr/Ashley Hy/Hy Ac) 1 Each Capsule 1 Each PO BID Glucagon Emergency Kit (Glucagon,Human Recombinant) 1 Mg Kit 1 Mg IM Folic Acid 1 Mg Tablet 1 Mg PO DAILY Flonase Allergy Relief (Fluticasone Propionate) 9.9 Ml [place].susp 2 Sprays NS DAILY Coreg (Carvedilol) 6.25 Mg Tablet 1 Tab PO BID Aspir 81 (Aspirin) 81 Mg Tablet. 1 Tab PO BID Amiodarone Hcl 200 Mg Tablet 1 Tab PO DAILY Allopurinol 100 Mg Tablet 1 Tab PO DAILY Amlodipine Besylate 5 Mg Tablet 5 Mg PO HS Vitals/I & O Vital Sign - Last 24 Hours 07/05/16 07/05/16 07/05/16 07/05/16 11:00 14:37 15:37 16:57 Temp 97.7 97.7 97.7 97.7 Pulse 64 65 65 65 Resp 18 18 B/P 145/57 140/60 140/60 140/60 Pulse Ox 97 97 O2 Delivery Room Air Room Air 07/05/16 07/05/16 07/05/16 07/05/16 20:00 21:51 21:51 21:53 Temp 98.3 98.3 Pulse 69 68 Resp 20 B/P 128/54 128/54 Pulse Ox 97 94 O2 Delivery Room Air Room Air 07/05/16 07/05/16 07/05/16 07/06/16 21:54 22:51 23:00 03:00 Temp 98.3 98.3 Pulse 69 63 62 Resp 20 18 B/P 128/54 110/46 126/46 Pulse Ox 97 94 O2 Delivery Room Air Room Air Room Air 07/06/16 07/06/16 07:15 08:00 Temp 98.0 98.0 Pulse 62 Resp 20 B/P 129/55 Pulse Ox 96 O2 Delivery Room Air Room Air Intake and Output 07/05/16 07/05/16 07/06/16 15:00 23:00 07:00 Intake Total 720 ml 400 ml Output Total 0 ml Balance 720 ml 400 ml SONIA HENDERSON MD Jul 06, 2016 10:16
--- NOTE | 2016-07-06 10:52 | PDOC ---
Dialysis Progress Note Dialysis Note Dialysis Note Seen on Hemodialysis, tolerating treatment Well for now Vitals on Hemodialysis: 127/51 62 NSR? afeb 16 General Appearance: Awake: Alert Oriented x 3 Neck: No JVD or JVP Chest: CTA [place] Heart: S1 S2 Abdomen - Soft NTND Extremities - + Edema ESRD ARF: Dialysis as below F 180 NR 3.0 Hrs 3 K 2.5 Ca 140 Na 30 HC03 Qb 350 + Qd 500+ Heparin 0 Units Uf 0.5 Kgs or to dry weight as tolerated May give 25-50 gms of 25% Albumin if needed to maintain Hemodynamic stability Treatment plan reviewed and discussed with presser automatic Vitals Vital Signs Vital Signs Date Time Temp Pulse Resp B/P Pulse Ox O2 Delivery O2 Flow Rate FiO2 07/06/16 08:00 Room Air 07/06/16 07:15 98.0 62 20 129/55 96 98.0 Labs Last Labs Laboratory Tests Test 07/05/16 10:55 07/05/16 11:04 07/05/16 16:08 07/05/16 21:58 Prothrombin Time 22.2SEC (11.7-14.0) Prothromb Time International Ratio 2.1 (0.8-1.1) Hepatitis A IgM Antibody Negative (Negative) Hepatitis B Surface Antigen Negative (Negative) Hepatitis B Surface Antibody Non reactive (.) Hepatitis B Core Total Antibody Negative (Negative) Hepatitis B Core IgM Antibody Negative (Negative) Hepatitis C Antibody <0.1s/co ratio (0.0-0.9) Glucose (Fingerstick) 210mg/dL (70-99) 381mg/dL (70-99) 147mg/dL (70-99) Test 07/06/16 05:35 07/06/16 07:41 Hemoglobin 9.1g/dL (12.0-15.5) Sodium Level 138mmol/L (136-145) Potassium Level 3.7mmol/L (3.5-5.1) Chloride Level 105mmol/L (98-107) Carbon Dioxide Level 28mmol/L (21-32) Anion Gap 5 (6-14) Blood Urea Nitrogen 30mg/dL (7-20) Creatinine 2.0mg/dL (0.6-1.0) Estimated GFR (Cockcroft-Gault) 24.4 Glucose Level 131mg/dL (70-99) Calcium Level 9.0mg/dL (8.5-10.1) Phosphorus Level 2.5mg/dL (2.6-4.7) Magnesium Level 2.1mg/dL (1.8-2.4) Iron Level 219ug/dL (50-170) Total Iron Binding Capacity 222ug/dL (250-450) Iron Saturation 99% (15-34) Albumin 2.8g/dL (3.4-5.0) Glucose (Fingerstick) 122mg/dL (70-99) Laboratory Tests Test 07/05/16 10:55 07/05/16 11:04 07/05/16 16:08 07/05/16 21:58 Prothrombin Time 22.2SEC (11.7-14.0) Prothromb Time International Ratio 2.1 (0.8-1.1) Hepatitis A IgM Antibody Negative (Negative) Hepatitis B Surface Antigen Negative (Negative) Hepatitis B Surface Antibody Non reactive (.) Hepatitis B Core Total Antibody Negative (Negative) Hepatitis B Core IgM Antibody Negative (Negative) Hepatitis C Antibody <0.1s/co ratio (0.0-0.9) Glucose (Fingerstick) 210mg/dL (70-99) 381mg/dL (70-99) 147mg/dL (70-99) Test 07/06/16 05:35 07/06/16 07:41 Hemoglobin 9.1g/dL (12.0-15.5) Sodium Level 138mmol/L (136-145) Potassium Level 3.7mmol/L (3.5-5.1) Chloride Level 105mmol/L (98-107) Carbon Dioxide Level 28mmol/L (21-32) Anion Gap 5 (6-14) Blood Urea Nitrogen 30mg/dL (7-20) Creatinine 2.0mg/dL (0.6-1.0) Estimated GFR (Cockcroft-Gault) 24.4 Glucose Level 131mg/dL (70-99) Calcium Level 9.0mg/dL (8.5-10.1) Phosphorus Level 2.5mg/dL (2.6-4.7) Magnesium Level 2.1mg/dL (1.8-2.4) Iron Level 219ug/dL (50-170) Total Iron Binding Capacity 222ug/dL (250-450) Iron Saturation 99% (15-34) Albumin 2.8g/dL (3.4-5.0) Glucose (Fingerstick) 122mg/dL (70-99) Assessment Assessment Problems Medical Problems: (1) Acute renal failure (ARF) Status: Acute Problems: Plan Plan of Care Problems Medical Problems: (1) Acute renal failure (ARF) Status: Acute ISELA LYNN MD Jul 06, 2016 10:52
[2016-07-06] MEDS: FOLIC ACID 1 MG TABLET PO SCH (14:39)
[2016-07-06] MEDS: FAMOTIDINE 20 MG TABLET. PO SCH (14:40)
[2016-07-06] MEDS: OMEGA-3 FATTY ACIDS/FISH OIL 1,000 MG CAPSULE. PO SCH (14:40)
[2016-07-06] MEDS: HYDRALAZINE 10 MG TABLET PO SCH ×2 (14:41→21:23)
[2016-07-06] MEDS: ALLOPURINOL 100 MG TABLET. PO SCH (14:41)
[2016-07-06] MEDS: ASPIRIN ENTERIC COATED 81 MG TABLET.DR. PO SCH ×2 (14:43→21:22)
[2016-07-06] MEDS: AMIODARONE HCL 200 MG TABLET PO SCH (14:43)
[2016-07-06] MEDS: CARVEDILOL 6.25 MG TABLET PO SCH ×2 (14:44→17:00)
[2016-07-06 15:15] VITALS: BP 117/39
[2016-07-06 19:00] VITALS: BP 128/47
[2016-07-06] MEDS: SENNOSIDES 8.6 MG TABLET PO SCH (21:22)
[2016-07-06] MEDS: traZODone 50 MG TABLET. PO SCH (21:23)
[2016-07-06] MEDS: AMLODIPINE BESYLATE 5 MG TABLET PO SCH (21:23)
[2016-07-06] MEDS: ATORVASTATIN CALCIUM 10 MG TABLET. PO SCH (21:23)
[2016-07-06] MEDS: INSULIN DETEMIR 300 UNITS/3 ML INSULN.PEN. SQ SCH (21:32)
[2016-07-06 22:57] VITALS: BP 122/46
[2016-07-07] VITALS (7 sets, daily range): BP systolic 106–136; BP diastolic 43–59
[2016-07-07 06:05] LABS: ALBUMIN 2.7 g/dL (3.4-5.0); CALCIUM 8.5 mg/dL (8.5-10.1); CREATININE 2.1 mg/dL (0.6-1.0); PHOSPHORUS 2.5 mg/dL (2.6-4.7); POTASSIUM 4.2 mmol/L (3.5-5.1)
[2016-07-07] MEDS: LEVOTHYROXINE 125 MCG TABLET PO SCH (06:25)
[2016-07-07] MEDS: INSULIN ASPART 300 UNITS/3 ML INSULN.PEN SQ SCH ×5 (08:00→17:08)
[2016-07-07 08:30] LABS: INR 1.3 (0.8-1.1); PROTHROMBIN TIME PATIENT 15.7 SEC (11.7-14.0)
[2016-07-07] MEDS ORDERED: DEXTROSE 50% 25 GM / 50ML DISP.SYRIN. IV PRN (09:00)
[2016-07-07] MEDS: FLUTICASONE 50MCG/NASAL SPRAY 16GM BOTTLE. NS SCH (09:00)
[2016-07-07] MEDS: ALLOPURINOL 100 MG TABLET. PO SCH (09:37)
[2016-07-07] MEDS: TRAMADOL 50 MG TABLET. PO SCH ×2 (09:37→21:40)
[2016-07-07] MEDS: AMIODARONE HCL 200 MG TABLET PO SCH (09:38)
[2016-07-07] MEDS: HYDRALAZINE 10 MG TABLET PO SCH ×2 (09:38→21:42)
[2016-07-07] MEDS: CARVEDILOL 6.25 MG TABLET PO SCH ×2 (09:38→16:28)
[2016-07-07] MEDS ORDERED: LIDOCAINE 1%/EPI 1:100,000 20 ML VIAL. ONE (10:09)
[2016-07-07] MEDS ORDERED: HEPARIN for IV BOLUS 10,000 UNIT/10 ML VIAL. ONE (10:09)
[2016-07-07] MEDS ORDERED: CLINDAMYCIN 600MG PREMIX 50 ML IV ONE ×2 (10:40→11:00)
[2016-07-07] MEDS ORDERED: MIDAZOLAM HCL 2 MG/2 ML VIAL. ONE (10:40)
[2016-07-07] MEDS ORDERED: FENTANYL PF 100 MCG/2 ML VIAL. ONE (10:41)
[2016-07-07] MEDS ORDERED: LIDOCAINE 1%/EPI 1:100,000 20 ML VIAL. IJ ONE (11:00)
[2016-07-07] MEDS ORDERED: MIDAZOLAM HCL 2 MG/2 ML VIAL. IV ONE (11:00)
[2016-07-07] MEDS ORDERED: FENTANYL PF 100 MCG/2 ML VIAL. IV ONE (11:00)
--- NOTE | 2016-07-07 11:22 | PDOC ---
MODERATE SEDATION ASSESSMENT RISKS/ALTERNATIVES Risks/Alternatives Risks and alternatives of this type of sedation and procedure discussed with: RISK/ALTERNATIVES: Patient H & P ON CHART H & P H & P on chart and reviewed for co-morbid conditions and appropriate labs. H&P ON CHART: Yes STATUS PREG STATUS ASSESSED: N/A MEDS/ALLERGIES REVIEWED Meds/Allergies Reviewed Medications and Allergies including time and route of recently administered narcotics and sedatives. MEDS/ALLERGIES REVIEWED: Yes ASA RATING ASA RATING: III AIRWAY ASSESSMENT Airway Assessment Airway patency, oral function limitations, presence of caps, crowns, dentures, partials, and ability to extend neck assessed. AIRWAY ASSESSMENT: Yes MALLAMPATI SCORE MALLAMPATI SCORE: II PRE-SEDATION ASSESSMENT PRE-SEDATION ASSESSMENT: Yes ZARIA FENG MD Jul 07, 2016 11:22
--- NOTE | 2016-07-07 11:27 | PDOC ---
Exam Caul Dresser Caul Dresser Marlyn Sparmaker Sparmaker B Cates Pre-Procedure Diagnosis Pre-Procedure Diagnosis ESRD. Coagulopathy resolved. Temp to tunneled HDC conversion requested by Renal Post-Procedure Diagnosis Post-Procedure Diagnosis Same Procedure Performed Procedure Performed Sono/fluoro guided rt IJ tunneled HDC insertion. Removal left IJ Temp HDC. Type of Anesthesia Type of Anesthesia Local + Mod sedation Estimated Blood Loss EBL: Minimal Specimens Specimans 14F 20cm Schon left IJ temp HDC removed and discarded. Drain/Tubes Drains/Tubes 15.5F 24cm DuraMax rt IJ tunneled HDC inserted. Condition of Patient Condition of Patient Stable. No apparent complication. Disposition Disposition From IR return to 563 for recovery. F/u with Renal. OK to use new tunneled HDC. Full report to follow. ZARIA FENG MD Jul 07, 2016 11:27
--- NOTE | 2016-07-07 12:11 | PDOC ---
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 Dm1, and htn DM1, good control, hypothyroid, htn, anemia,of CKD CHF, chronic combines systolic and diastolic, stable, insomnia, History of Present Illness History of Present Illness Doing well second session HD yesterday Now has a permanent HD cath NO issues Says she is aimed to go home cyndi PLAN: OP HD has been set up (F schedule) HD cyndi then home cyndi Dw [place] and pt Vitals Vitals Vital Signs Date Time Temp Pulse Resp B/P Pulse Ox O2 Delivery O2 Flow Rate FiO2 07/07/16 11:21 59 16 98 07/07/16 11:16 Nasal Cannula 2.0 07/07/16 10:49 98.0 136/59 98.0 Physical Exam General: Alert, Oriented X3, Cooperative, No acute distress Abdomen: Normal bowel sounds, Soft Extremities: No clubbing, Normal pulses, Other (tr edema) Skin: No rashes, No significant lesion Labs LABS Laboratory Tests Test 07/06/16 14:44 07/06/16 16:49 07/06/16 21:15 07/07/16 05:25 Glucose (Fingerstick) 203mg/dL (70-99) 125mg/dL (70-99) 280mg/dL (70-99) Sodium Level 138mmol/L (136-145) Potassium Level 4.2mmol/L (3.5-5.1) Chloride Level 104mmol/L (98-107) Carbon Dioxide Level 26mmol/L (21-32) Anion Gap 8 (6-14) Blood Urea Nitrogen 28mg/dL (7-20) Creatinine 2.1mg/dL (0.6-1.0) Estimated GFR (Cockcroft-Gault) 23.0 Glucose Level 241mg/dL (70-99) Calcium Level 8.5mg/dL (8.5-10.1) Phosphorus Level 2.5mg/dL (2.6-4.7) Magnesium Level 2.0mg/dL (1.8-2.4) Albumin 2.7g/dL (3.4-5.0) Test 07/07/16 07:18 07/07/16 08:05 07/07/16 11:52 Glucose (Fingerstick) 243mg/dL (70-99) 360mg/dL (70-99) Prothrombin Time 15.7SEC (11.7-14.0) Prothromb Time International Ratio 1.3 (0.8-1.1) Review of Systems Review of Systems denies all 14 pt Assessment and Plan Assessmemt and Plan Problems Medical Problems: (1) Acute renal failure (ARF) Status: Acute Problems: Comment Review of Relevant I have reviewed the following items bakari (where applicable) has been applied. Labs Laboratory Tests Test 07/05/16 16:08 07/05/16 21:58 07/06/16 05:35 07/06/16 07:41 Glucose (Fingerstick) 381mg/dL (70-99) 147mg/dL (70-99) 122mg/dL (70-99) Hemoglobin 9.1g/dL (12.0-15.5) Sodium Level 138mmol/L (136-145) Potassium Level 3.7mmol/L (3.5-5.1) Chloride Level 105mmol/L (98-107) Carbon Dioxide Level 28mmol/L (21-32) Anion Gap 5 (6-14) Blood Urea Nitrogen 30mg/dL (7-20) Creatinine 2.0mg/dL (0.6-1.0) Estimated GFR (Cockcroft-Gault) 24.4 Glucose Level 131mg/dL (70-99) Calcium Level 9.0mg/dL (8.5-10.1) Phosphorus Level 2.5mg/dL (2.6-4.7) Magnesium Level 2.1mg/dL (1.8-2.4) Iron Level 219ug/dL (50-170) Total Iron Binding Capacity 222ug/dL (250-450) Iron Saturation 99% (15-34) Albumin 2.8g/dL (3.4-5.0) Test 07/06/16 14:44 07/06/16 16:49 07/06/16 21:15 07/07/16 05:25 Glucose (Fingerstick) 203mg/dL (70-99) 125mg/dL (70-99) 280mg/dL (70-99) Sodium Level 138mmol/L (136-145) Potassium Level 4.2mmol/L (3.5-5.1) Chloride Level 104mmol/L (98-107) Carbon Dioxide Level 26mmol/L (21-32) Anion Gap 8 (6-14) Blood Urea Nitrogen 28mg/dL (7-20) Creatinine 2.1mg/dL (0.6-1.0) Estimated GFR (Cockcroft-Gault) 23.0 Glucose Level 241mg/dL (70-99) Calcium Level 8.5mg/dL (8.5-10.1) Phosphorus Level 2.5mg/dL (2.6-4.7) Magnesium Level 2.0mg/dL (1.8-2.4) Albumin 2.7g/dL (3.4-5.0) Test 07/07/16 07:18 07/07/16 08:05 07/07/16 11:52 Glucose (Fingerstick) 243mg/dL (70-99) 360mg/dL (70-99) Prothrombin Time 15.7SEC (11.7-14.0) Prothromb Time International Ratio 1.3 (0.8-1.1) Laboratory Tests Test 07/06/16 14:44 07/06/16 16:49 07/06/16 21:15 07/07/16 05:25 Glucose (Fingerstick) 203mg/dL (70-99) 125mg/dL (70-99) 280mg/dL (70-99) Sodium Level 138mmol/L (136-145) Potassium Level 4.2mmol/L (3.5-5.1) Chloride Level 104mmol/L (98-107) Carbon Dioxide Level 26mmol/L (21-32) Anion Gap 8 (6-14) Blood Urea Nitrogen 28mg/dL (7-20) Creatinine 2.1mg/dL (0.6-1.0) Estimated GFR (Cockcroft-Gault) 23.0 Glucose Level 241mg/dL (70-99) Calcium Level 8.5mg/dL (8.5-10.1) Phosphorus Level 2.5mg/dL (2.6-4.7) Magnesium Level 2.0mg/dL (1.8-2.4) Albumin 2.7g/dL (3.4-5.0) Test 07/07/16 07:18 07/07/16 08:05 07/07/16 11:52 Glucose (Fingerstick) 243mg/dL (70-99) 360mg/dL (70-99) Prothrombin Time 15.7SEC (11.7-14.0) Prothromb Time International Ratio 1.3 (0.8-1.1) Medications Current Medications Magnesium Sulfate/ Dextrose (Magnesium Sulfate PREMIX 2GM) 50 ml @ 25 mls/hr PRN DAILY PRN IV for Mag < 1.7 on am labs; Start 07/05/16 at 11:45 Heparin Sodium (Porcine) 2,500 unit 1X ONCE INT CAT Last administered on 13:15; Start 07/05/16 at 12:45; Stop 07/05/16 at 12:46; Status DC Heparin Sodium/ Sodium Chloride 1,000 unit 1X ONCE IV Last administered on 07/05 13:27; Start 07/05/16 at 12:45; Stop 07/05/16 at 12:46; Status DC Lidocaine/Sodium Bicarbonate (Buffered Lidocaine 1%) 3 ml 1X ONCE IJ Last administered on 07/05/16 13:26; Start 07/05/16 at 12:45; Stop 07/05/16 at 12:46; Status DC Heparin Sodium (Porcine) 10,000 unit STK-MED ONCE .ROUTE ; Start 07/05/16 at 12: 48; Stop 07/05/16 at 12:49; Status DC Allopurinol (Zyloprim) 100 mg DAILY PO Last administered on 07/07/16 09:37; Start 07/05/16 at 15:30 Amiodarone HCl (Cordarone) 200 mg DAILY PO Last administered on 07/07/16 09:38 ; Start 07/05/16 at 15:30 Amlodipine Besylate (Norvasc) 5 mg HS PO Last administered on 07/06/16 21:23; Start 07/05/16 at 21:00 Aspirin (Ecotrin) 81 mg BID PO Last administered on 07/06/16 21:22; Start at 21:00 Carvedilol (Coreg) 6.25 mg BIDWMEALS PO Last administered on 07/07/16 09:38; Start 07/05/16 at 17:00 Famotidine (Pepcid) 20 mg BID PO ; Start 07/05/16 at 21:00; Stop 07/05/16 at 21:00 ; Status DC Folic Acid (Folic Acid) 1 mg DAILY PO Last administered on 07/06/16 14:39; Start 07/05/16 at 15:30 Hydralazine HCl (Apresoline) 10 mg BID PO Last administered on 07/07/16 09:38; Start 07/05/16 at 21:00 Levothyroxine Sodium (Synthroid) 125 mcg DAILYAC PO Last administered on 06:25; Start 07/05/16 at 15:30 Metoclopramide HCl (Reglan) 10 mg PRN QID PRN PO NAUSEA; Start 07/05/16 at 14:45 Nitroglycerin (Nitrostat) 0.4 mg PRN Q5MIN PRN SL CHEST PAIN; Start 07/05/16 at 14:45 Sennosides (Senna) 8.6 mg QHS PO Last administered on 07/06/16 21:22; Start 07/05/16 at 21:00 Tramadol HCl (Ultram) 50 mg BID PO Last administered on 07/07/16 09:37; Start 07/05/16 at 21:00 Trazodone HCl (Desyrel) 50 mg HS PO Last administered on 07/06/16 21:23; Start 07/05/16 at 21:00 Fluticasone Propionate (Flonase) 2 spray DAILY NS ; Start 07/06/16 at 09:00 Insulin Aspart (Novolog) 2 units DAILYWSUP SQ Last administered on 07/06/16 17: 36; Start 07/05/16 at 17:00 Insulin Aspart (Novolog) 5 units DAILYWLUN SQ Last administered on 07/06/16 14: 53; Start 07/06/16 at 12:00 Insulin Aspart (Novolog) 6 units DAILYWBKFT SQ Last administered on 07/06/16 08 :00; Start 07/06/16 at 08:00 Insulin Detemir (Levemir) 7 units QHS SQ Last administered on 07/06/16 21:32; Start 07/05/16 at 21:00 Fish Oil (Fish Oil) 1,000 mg DAILY PO Last administered on 07/06/16 14:40; Start 07/06/16 at 09:00 Atorvastatin Calcium (Lipitor) 10 mg QHS PO Last administered on 07/06/16 21:23 ; Start 07/05/16 at 21:00 Insulin Aspart (Novolog) 0-5 UNITS TIDWMEALS SQ Last administered on 07/06/16 14:54; Start 07/05/16 at 17:00; Stop 07/07/16 at 08:53; Status DC Dextrose 12.5 gm 12.5 gm PRN Q15MIN PRN IV SEE COMMENTS; Start 07/05/16 at 14:45 Sodium Chloride (Iv Sodium Chloride 0.9% 1000ml Bag) 1,000 ml @ 1,000 mls/hr Q1H PRN IV hypotension; Start 07/05/16 at 18:41; Stop 07/06/16 at 00:40; Status DC Sodium Chloride (Normal Saline Flush) 10 ml 1X PRN PRN IV AP catheter pack; Start 07/05/16 at 18:45; Stop 07/06/16 at 18:44; Status DC Sodium Chloride (Normal Saline Flush) 10 ml 1X PRN PRN IV [employer]ER [employer]IENCE CONSULTANT catheter pack; Start 07/05/16 at 18:45; Stop 07/06/16 at 18:44; Status DC Info (PHARMACY MONITORING -- do not chart) 1 each PRN DAILY PRN MC SEE COMMENTS ; Start 07/05/16 at 18:45; Status UNV Info (PHARMACY MONITORING -- do not chart) 1 each PRN DAILY PRN MC SEE COMMENTS ; Start 07/05/16 at 18:45 Famotidine 20 mg 20 mg Q48H PO Last administered on 07/06/16 14:40; Start at 09:00 Sodium Chloride 1,000 ml @ 1,000 mls/hr Q1H PRN IV hypotension; Start 07/06/16 at 09:41; Stop 07/06/16 at 15:40; Status DC Albumin Human (Albuminar) 200 ml @ 200 mls/hr 1X PRN PRN IV Hypotension; Start 07/06/16 at 09:45; Stop 07/06/16 at 15:44; Status DC Acetaminophen (Tylenol) 500 mg 1X PRN PRN PO MILD PAIN / TEMP; Start 07/06/16 at 09:45; Stop 07/07/16 at 09:44; Status DC Diphenhydramine HCl (Benadryl) 25 mg 1X PRN PRN IV ITCHING; Start 07/06/16 at 09 :45; Stop 07/07/16 at 09:44; Status DC Sodium Chloride (Normal Saline Flush) 10 ml 1X PRN PRN IV AP catheter pack; Start 07/06/16 at 09:45; Stop 07/07/16 at 09:44; Status DC Sodium Chloride (Normal Saline Flush) 10 ml 1X PRN PRN IV CONSUMER [employer]PERIENCE CONSULTANT catheter pack; Start 07/06/16 at 09:45; Stop 07/07/16 at 09:44; Status DC Labetalol HCl (Normodyne) 10 mg PRN Q1HR PRN IVP SBP > 180; Start 07/06/16 at 09 :45; Stop 07/07/16 at 09:44; Status DC Clonidine HCl (Catapres) 0.1 mg 1X PRN PRN PO SBP > 180; Start 07/06/16 at 09:45 ; Stop 07/07/16 at 09:44; Status DC Info (PHARMACY MONITORING -- do not chart) 1 each PRN DAILY PRN MC SEE COMMENTS ; Start 07/06/16 at 09:45; Status UNV Insulin Aspart (Novolog) 0-9 UNITS TIDWMEALS SQ ; Start 07/07/16 at 12:00 Dextrose 12.5 gm PRN Q15MIN PRN IV SEE COMMENTS; Start 07/07/16 at 09:00 Heparin Sodium (Porcine) 10,000 unit STK-MED ONCE .ROUTE ; Start 07/07/16 at 10: 09; Stop 07/07/16 at 10:10; Status DC Lidocaine/ Epinephrine 20 ml 20 ml STK-MED ONCE .ROUTE ; Start 07/07/16 at 10:09 ; Stop 07/07/16 at 10:10; Status DC Heparin Sodium/ Sodium Chloride 500 ml @ As Directed STK-MED ONCE .ROUTE ; Start 07/07/16 at 10:09; Stop 07/07/16 at 10:10; Status DC Clindamycin Phosphate (Cleocin 600 Mg Premix) 50 ml @ As Directed STK-MED ONCE IV ; Start 07/07/16 at 10:40; Stop 07/07/16 at 10:41; Status DC Midazolam HCl (Versed) 2 mg STK-MED ONCE .ROUTE ; Start 07/07/16 at 10:40; Stop 07/07/16 at 10:41; Status DC Fentanyl Citrate (Fentanyl 2ml Vial) 100 mcg STK-MED ONCE .ROUTE ; Start at 10:41; Stop 07/07/16 at 10:42; Status DC Heparin Sodium/ Sodium Chloride 1,000 unit 1X ONCE IART Last administered on 11:17; Start 07/07/16 at 11:00; Stop 07/07/16 at 11:04; Status DC Midazolam HCl (Versed) 2 mg 1X ONCE IV Last administered on 07/07/16 11:15; Start 07/07/16 at 11:00; Stop 07/07/16 at 11:04; Status DC Fentanyl Citrate (Fentanyl 2ml Vial) 100 mcg 1X ONCE IV Last administered on 11:16; Start 07/07/16 at 11:00; Stop 07/07/16 at 11:04; Status DC Heparin Sodium (Porcine) 2600 unit 2,600 unit 1X ONCE INT CAT Last administered on 07/07/16 11:16; Start 07/07/16 at 11:00; Stop 07/07/16 at 11:04; Status DC Clindamycin Phosphate (Cleocin 600 Mg Premix) 50 ml @ 100 mls/hr 1X ONCE IV Last administered on 07/07/16 11:18; Start 07/07/16 at 11:00; Stop 07/07/16 at 11: 29; Status DC Lidocaine/ Epinephrine (Xylocaine 1%-Epi 1:100,000) 20 ml 1X ONCE IJ Last administered on 07/07/16 11:17; Start 07/07/16 at 11:00; Stop 07/07/16 at 11:04; Status DC Active Scripts Active Reported Warfarin Sodium 2 Mg Tablet 2 Mg PO DAILY Novolog (Insulin Aspart) 100 Unit/1 Ml Cartridge 2 Unit SQ DAILYWSUP Novolog (Insulin Aspart) 100 Unit/1 Ml Cartridge 5 Unit SQ DAILYWLUN Novolog (Insulin Aspart) 100 Unit/1 Ml Cartridge 6 Unit SQ DAILYWBKFT Hydralazine Hcl 10 Mg Tablet 10 Mg PO BID Vitamin B Complex 1 Each Capsule 1 Each PO Vitamin C (Ascorbate Calcium) 500 Mg Tablet 500 Mg PO Vitamin D-3 (Cholecalciferol (Vitamin D3)) 2,000 Unit Capsule 1,000 Unit PO Tramadol Hcl 50 Mg Tablet 1 Tab PO BID Trazodone Hcl 50 Mg Tablet 50 Mg PO HS Senna (Senna White Stone Extract) 176 Mg/5 Ml Syrup 176 Mg PO HS Reglan (Metoclopramide Hcl) 10 Mg Tablet 10 Mg PO QIDACHS PRN Pravastatin Sodium 40 Mg Tablet 40 Mg PO HS Famotidine 20 Mg Tablet 20 Mg PO BID Dale 3 Fish Oil Softgel (Dale-3 Fatty Acids/Fish Oil) 1 Each Capsule.dr 1 Each PO DAILY Nitrostat (Nitroglycerin) 0.4 Mg Tab.subl 0.4 Mg SL PRN Q5MIN PRN Synthroid (Levothyroxine Sodium) 125 Mcg Tablet 125 Mcg PO DAILYAC Lasix (Furosemide) 80 Mg Tablet 80 Mg PO BID Lantus (Insulin Glargine,Hum.rec.anlog) 100 Unit/1 Ml Vial 7 Unit SQ HS Glucosamine & Chondroitin Cap (Gluc 2KCL/Chondr/Ashley Hy/Hy Ac) 1 Each Capsule 1 Each PO BID Glucagon Emergency Kit (Glucagon,Human Recombinant) 1 Mg Kit 1 Mg IM Folic Acid 1 Mg Tablet 1 Mg PO DAILY Flonase Allergy Relief (Fluticasone Propionate) 9.9 Ml [place].susp 2 Sprays NS DAILY Coreg (Carvedilol) 6.25 Mg Tablet 1 Tab PO BID Aspir 81 (Aspirin) 81 Mg Tablet.dr 1 Tab PO BID Amiodarone Hcl 200 Mg Tablet 1 Tab PO DAILY Allopurinol 100 Mg Tablet 1 Tab PO DAILY Amlodipine Besylate 5 Mg Tablet 5 Mg PO HS Vitals/I & O Vital Sign - Last 24 Hours 07/06/16 07/06/16 07/06/16 07/06/16 14:41 14:43 14:44 15:15 Temp 100.6 100.6 Pulse 62 62 62 62 Resp 18 B/P 129/55 129/55 129/55 117/39 Pulse Ox 96 O2 Delivery Room Air 07/06/16 07/06/16 07/06/16 07/06/16 19:00 20:00 21:23 21:23 Temp 98.4 98.4 Pulse 58 58 58 Resp 16 B/P 128/47 128/47 128/47 Pulse Ox 96 O2 Delivery Room Air Room Air 07/06/16 07/06/16 07/06/16 07/07/16 21:23 22:23 22:57 02:46 Temp 97.7 101.3 97.7 101.3 Pulse 65 64 Resp 16 15 B/P 122/46 122/47 Pulse Ox 96 96 93 92 O2 Delivery Room Air Room Air Room Air Room Air 07/07/16 07/07/16 07/07/16 07/07/16 07:00 08:00 09:37 09:38 Temp 98.4 98.4 Pulse 63 63 Resp 18 18 B/P 123/52 123/52 Pulse Ox 93 93 O2 Delivery Room Air Room Air Room Air 07/07/16 07/07/16 07/07/16 07/07/16 09:38 09:38 10:49 11:16 Temp 98.0 98.0 Pulse 63 63 69 Resp 18 16 B/P 123/52 123/52 136/59 Pulse Ox 93 97 O2 Delivery Room Air Nasal Cannula O2 Flow Rate 2.0 07/07/16 11:21 Pulse 59 Resp 16 Pulse Ox 98 Intake and Output 07/06/16 07/06/16 07/07/16 15:00 23:00 07:00 Intake Total 300 ml 240 ml 400 ml Output Total 200 ml Balance 300 ml 240 ml 200 ml SONIA HENDERSON MD Jul 07, 2016 12:11
[2016-07-07] MEDS: FOLIC ACID 1 MG TABLET PO SCH (12:16)
[2016-07-07] MEDS: OMEGA-3 FATTY ACIDS/FISH OIL 1,000 MG CAPSULE. PO SCH (12:16)
[2016-07-07] MEDS: ASPIRIN ENTERIC COATED 81 MG TABLET.DR. PO SCH ×2 (12:16→21:40)
--- NOTE | 2016-07-07 12:20 | PDOC ---
SUBJECTIVE ROS ESRD doing and feeling a little better today; Just bakc from PermCath Placement CVS: no Orthopnea, no CP RESP: no SOB, Min ORTEGA GI: no Nausea, no Vomiting : no Dysuria, no Urgency OBJECTIVE Vital Signs Vital Signs Date Time Temp Pulse Resp B/P Pulse Ox O2 Delivery O2 Flow Rate FiO2 07/07/16 11:21 59 16 98 07/07/16 11:16 Nasal Cannula 2.0 07/07/16 10:49 98.0 136/59 98.0 I & 0 Intake and Output 07/07/16 07:00 Intake Total 940 ml Output Total 200 ml Balance 740 ml Intake Oral 940 ml Output Urine Total 200 ml # Voids 3 PHYSICAL EXAM Physical Exam General Appearance: Awake Alert Oriented x 3 In no Distress Eyes: VIsion Unchanged Conjunctiva Normal EN: No EN Drainage Mucous Memb. moist Neck: no JVD min JVP Supple no Thyromegaly CVS: S1 S2 + Murmur No Gallop No Rub + Edema Resp: no Rales no Rhonchi no Acc. Muscle use GI: BAS +ve NO Bruit Non Tender Non Distended : no CVA tenderness; no Suprapubic Tenderness Assessment & Plan ESRD: Current fluid and E-lyte status does not necessitate emergent need for dialysis. Will re-evaluate for dialysis in the am and continue on MWF schedule. Anemia: start Epogen; Transfuse with next HD as needed once hgb avail, just got IVFe HTN: Current BP meds reviewed. See orders for changes. Edema - reval with Uf Low PHos - IV NA Phos H/o CHF (Sys + Diastolic) - Uf with HD gradually Discussed Plan of Care and prognosis etc. at length with family. COMMENT/RELEVANT DATA Meds Current Medications Medications (Trade) Dose Ordered Sig/Allan Start Time Stop Time Status Last Admin Dose Admin Acetaminophen (Tylenol) 500 mg 1X PRN PRN 07/06/16 09:45 07/07/16 09:44 DC Albumin Human (Albuminar) 200 ml @ 200 mls/hr 1X PRN PRN 07/06/16 09:45 07/06/16 15:44 DC Allopurinol (Zyloprim) 100 mg DAILY 07/05/16 15:30 07/07/16 09:37 100 MG Amiodarone HCl (Cordarone) 200 mg DAILY 07/05/16 15:30 07/07/16 09:38 200 MG Amlodipine Besylate (Norvasc) 5 mg HS 07/05/16 21:00 07/06/16 21:23 5 MG Aspirin (Ecotrin) 81 mg BID 07/05/16 21:00 07/06/16 21:22 81 MG Atorvastatin Calcium (Lipitor) 10 mg QHS 07/05/16 21:00 07/06/16 21:23 10 MG Carvedilol (Coreg) 6.25 mg BIDWMEALS 07/05/16 17:00 07/07/16 09:38 6.25 MG Clindamycin Phosphate (Cleocin 600 Mg Premix) 50 ml @ 100 mls/hr 1X ONCE 07/07/16 11:00 07/07/16 11:29 DC 07/07/16 11:18 100 MLS/HR Clonidine HCl (Catapres) 0.1 mg 1X PRN PRN 07/06/16 09:45 07/07/16 09:44 DC Dextrose 12.5 gm PRN Q15MIN PRN 07/07/16 09:00 Dextrose 12.5 gm 12.5 gm PRN Q15MIN PRN 07/05/16 14:45 Diphenhydramine HCl (Benadryl) 25 mg 1X PRN PRN 07/06/16 09:45 07/07/16 09:44 DC Famotidine (Pepcid) 20 mg BID 07/05/16 21:00 07/05/16 21:00 DC Famotidine 20 mg 20 mg Q48H 07/06/16 09:00 07/06/16 14:40 20 MG Fentanyl Citrate (Fentanyl 2ml Vial) 100 mcg 1X ONCE 07/07/16 11:00 07/07/16 11:04 DC 07/07/16 11:16 100 MCG Fish Oil (Fish Oil) 1,000 mg DAILY 07/06/16 09:00 07/06/16 14:40 1,000 MG Fluticasone Propionate (Flonase) 2 spray DAILY 07/06/16 09:00 Folic Acid (Folic Acid) 1 mg DAILY 07/05/16 15:30 07/06/16 14:39 1 MG Heparin Sodium (Porcine) 10,000 unit STK-MED ONCE 07/07/16 10:09 07/07/16 10:10 DC Heparin Sodium (Porcine) 2600 unit 2,600 unit 1X ONCE 07/07/16 11:00 07/07/16 11:04 DC 07/07/16 11:16 4,000 UNIT Heparin Sodium/ Sodium Chloride 1,000 unit 1X ONCE 07/07/16 11:00 07/07/16 11:04 DC 07/07/16 11:17 1,000 UNIT Hydralazine HCl (Apresoline) 10 mg BID 07/05/16 21:00 07/07/16 09:38 10 MG Info (PHARMACY MONITORING -- do not chart) 1 each PRN DAILY PRN 07/06/16 09:45 UNV Insulin Aspart (Novolog) 0-9 UNITS TIDWMEALS 07/07/16 12:00 Insulin Detemir (Levemir) 7 units QHS 07/05/16 21:00 07/06/16 21:32 7 UNITS Labetalol HCl (Normodyne) 10 mg PRN Q1HR PRN 07/06/16 09:45 07/07/16 09:44 DC Levothyroxine Sodium (Synthroid) 125 mcg DAILYAC 07/05/16 15:30 07/07/16 06:25 125 MCG Lidocaine/ Epinephrine (Xylocaine 1%-Epi 1:100,000) 20 ml 1X ONCE 07/07/16 11:00 07/07/16 11:04 DC 07/07/16 11:17 10 ML Lidocaine/Sodium Bicarbonate (Buffered Lidocaine 1%) 3 ml 1X ONCE 07/05/16 12:45 07/05/16 12:46 DC 07/05/16 13:26 3 ML Magnesium Sulfate/ Dextrose (Magnesium Sulfate PREMIX 2GM) 50 ml @ 25 mls/hr PRN DAILY PRN 07/05/16 11:45 Metoclopramide HCl (Reglan) 10 mg PRN QID PRN 07/05/16 14:45 Midazolam HCl (Versed) 2 mg 1X ONCE 07/07/16 11:00 07/07/16 11:04 DC 07/07/16 11:15 2 MG Nitroglycerin (Nitrostat) 0.4 mg PRN Q5MIN PRN 07/05/16 14:45 Sennosides (Senna) 8.6 mg QHS 07/05/16 21:00 07/06/16 21:22 8.6 MG Sodium Chloride (Iv Sodium Chloride 0.9% 1000ml Bag) 1,000 ml @ 1,000 mls/hr Q1H PRN 07/05/16 18:41 07/06/16 00:40 DC Sodium Chloride (Normal Saline Flush) 10 ml 1X PRN PRN 07/06/16 09:45 07/07/16 09:44 DC Tramadol HCl (Ultram) 50 mg BID 07/05/16 21:00 07/07/16 09:37 50 MG Trazodone HCl (Desyrel) 50 mg HS 07/05/16 21:00 07/06/16 21:23 50 MG Lab Laboratory Tests Test 07/06/16 14:44 07/06/16 16:49 07/06/16 21:15 07/07/16 05:25 Glucose (Fingerstick) 203mg/dL (70-99) 125mg/dL (70-99) 280mg/dL (70-99) Sodium Level 138mmol/L (136-145) Potassium Level 4.2mmol/L (3.5-5.1) Chloride Level 104mmol/L (98-107) Carbon Dioxide Level 26mmol/L (21-32) Anion Gap 8 (6-14) Blood Urea Nitrogen 28mg/dL (7-20) Creatinine 2.1mg/dL (0.6-1.0) Estimated GFR (Cockcroft-Gault) 23.0 Glucose Level 241mg/dL (70-99) Calcium Level 8.5mg/dL (8.5-10.1) Phosphorus Level 2.5mg/dL (2.6-4.7) Magnesium Level 2.0mg/dL (1.8-2.4) Albumin 2.7g/dL (3.4-5.0) Test 07/07/16 07:18 07/07/16 08:05 07/07/16 11:52 Glucose (Fingerstick) 243mg/dL (70-99) 360mg/dL (70-99) Prothrombin Time 15.7SEC (11.7-14.0) Prothromb Time International Ratio 1.3 (0.8-1.1) ISELA LYNN MD Jul 07, 2016 12:20
[2016-07-07] MEDS ORDERED: SODIUM PHOSPHATE 20 MMOL in IV DEXTROSE 5% 250 ML IV ONE (13:00)
[2016-07-07] MEDS: ATORVASTATIN CALCIUM 10 MG TABLET. PO SCH (21:39)
[2016-07-07] MEDS: traZODone 50 MG TABLET. PO SCH (21:39)
[2016-07-07] MEDS: AMLODIPINE BESYLATE 5 MG TABLET PO SCH (21:39)
[2016-07-07] MEDS: SENNOSIDES 8.6 MG TABLET PO SCH (21:40)
[2016-07-07] MEDS: INSULIN DETEMIR 300 UNITS/3 ML INSULN.PEN. SQ SCH (21:46)
[2016-07-08 03:36] VITALS: BP 112/52
[2016-07-08 06:21] LABS: ALBUMIN 2.7 g/dL (3.4-5.0); CALCIUM 8.6 mg/dL (8.5-10.1); CREATININE 2.6 mg/dL (0.6-1.0); PHOSPHORUS 3.7 mg/dL (2.6-4.7); POTASSIUM 3.9 mmol/L (3.5-5.1)
[2016-07-08 07:00] VITALS: BP 121/68
[2016-07-08] MEDS: INSULIN ASPART 300 UNITS/3 ML INSULN.PEN SQ SCH ×4 (08:00→12:47)
--- NOTE | 2016-07-08 08:00 | RAD ---
Ultrasound and fluoro guided placement of right IJ tunneled hemodialysis catheter Removal of left IJ temporary hemodialysis catheter Indication: 76-year-old female with with end-stage renal disease. Her coagulopathy has been corrected. Conversion from temporary to tunneled hemodialysis catheter has been requested by renal. Fluoro time: 0.6 minutes Kerma-Area Product: 2 Gycm2 Moderate sedation: 23 minutes moderate sedation was provided utilizing a total of 2 mg Versed and 100 mcg fentanyl, IV. The patient was appropriately monitored by a qualified independent observer throughout the time of moderate sedation. Antibiotic: A single dose of Clindamycin was administered within 1 hour of the procedure start time. Cephalosporin was withheld due to allergy. Sterility: All elements of maximal sterile barrier technique, including the use of a cap, mask, sterile gown, sterile gloves, large sterile sheet, appropriate hand hygiene, and 2% chlorhexidine for cutaneous antisepsis (or acceptable alternative antiseptic per current guidelines) were utilized. Procedure: Informed consent was obtained from the patient. She was placed supine on the angiography table. Preliminary ultrasound examination of right neck revealed wide patency of right internal jugular vein, which was documented with a hard copy ultrasound image. Right neck and upper chest were then prepped and draped in the usual sterile fashion, utilizing all elements of maximal sterile barrier technique, as described above. Moderate sedation was provided with IV Versed and Fentanyl. 600 mg clindamycin was given IV, prophylactically. Using aseptic technique and local anesthesia, a small skin incision was made lateral to right internal jugular vein, just above clavicle. Using aseptic technique, local anesthesia, and direct ultrasound guidance, a micropuncture needle was successfully introduced into right internal jugular vein. The micropuncture needle was then exchanged over a microguidewire for a micropuncture sheath, through which an Amplatz wire was advanced into IVC, under fluoroscopic control. A second small skin incision was then made along upper anterior aspect of right chest. A subcutaneous tunnel was then fashioned between the right chest and supraclavicular incisions. A 15.5 F 24 cm Dura Max dialysis catheter was pulled through the subcutaneous tunnel from inferior to superior, utilizing the tunneling device provided. The right IJ venostomy tract was then sequentially dilated and the 15.5 [place] dialysis catheter was easily advanced centrally through a 16 Angolan peel-away sheath, and was positioned with its tip at the level of upper right atrium utilizing fluoroscopic guidance. This catheter was demonstrated to flush and aspirate normally, was packed, and was secured at the right chest exit site utilizing 2-0 Prolene and sterile dressing. The small supraclavicular incision was closed with 4-0 Vicryl, Steri-Strips, and sterile dressing. Satisfactory position of the dialysis catheter was confirmed with a single fluoroscopic spot image. Attention was then turned to the indwelling left IJ 14 Ang[place] 20 cm Schon temporary hemodialysis catheter. This catheter was easily removed utilizing gentle traction. Hemostasis was achieved with manual pressure over left internal jugular vein. Patient tolerated the procedure well without apparent complication. Impression: 1. Successful, uneventful ultrasound and fluoro guided placement of right IJ 15.5 F 24 cm Dura Max tunneled hemodialysis catheter, as described. 2. Uneventful removal of left IJ 14 Ang[place] 20 cm Schon temporary hemodialysis catheter, as described.
--- NOTE | 2016-07-08 08:56 | PDOC ---
Dialysis Progress Note Dialysis Note Dialysis Note Seen on Hemodialysis, tolerating treatment Well for now Vitals on Hemodialysis: 127/62 65 NSR? afeb 16 General Appearance: Awake: Alert Oriented x 3 Neck: No JVD or JVP Chest: CTA Wale Heart: S1 S2 Abdomen - Soft NTND Extremities - + Edema ESRD : Dialysis as below F 180 NR 3.0 Hrs 3 K 2.5 Ca 140 Na 30 HC03 Qb 350 + Qd 500+ Heparin 0 Units Uf 0.5 -1.5 Kgs or to dry weight as tolerated May give 25-50 gms of 25% Albumin if needed to maintain Hemodynamic stability Treatment plan reviewed and discussed with sheet catcher Vitals Vital Signs Vital Signs Date Time Temp Pulse Resp B/P Pulse Ox O2 Delivery O2 Flow Rate FiO2 07/08/16 07:00 98.2 67 18 121/68 93 Room Air 98.2 07/07/16 11:16 2.0 Labs Last Labs Laboratory Tests Test 07/06/16 14:44 07/06/16 16:49 07/06/16 21:15 07/07/16 05:25 Glucose (Fingerstick) 203mg/dL (70-99) 125mg/dL (70-99) 280mg/dL (70-99) Sodium Level 138mmol/L (136-145) Potassium Level 4.2mmol/L (3.5-5.1) Chloride Level 104mmol/L (98-107) Carbon Dioxide Level 26mmol/L (21-32) Anion Gap 8 (6-14) Blood Urea Nitrogen 28mg/dL (7-20) Creatinine 2.1mg/dL (0.6-1.0) Estimated GFR (Cockcroft-Gault) 23.0 Glucose Level 241mg/dL (70-99) Calcium Level 8.5mg/dL (8.5-10.1) Phosphorus Level 2.5mg/dL (2.6-4.7) Magnesium Level 2.0mg/dL (1.8-2.4) Albumin 2.7g/dL (3.4-5.0) Test 07/07/16 07:18 07/07/16 08:05 07/07/16 11:52 07/07/16 16:33 Glucose (Fingerstick) 243mg/dL (70-99) 360mg/dL (70-99) 269mg/dL (70-99) Prothrombin Time 15.7SEC (11.7-14.0) Prothromb Time International Ratio 1.3 (0.8-1.1) Test 07/07/16 20:46 07/08/16 05:00 07/08/16 06:58 Glucose (Fingerstick) 117mg/dL (70-99) 189mg/dL (70-99) Sodium Level 138mmol/L (136-145) Potassium Level 3.9mmol/L (3.5-5.1) Chloride Level 102mmol/L (98-107) Carbon Dioxide Level 26mmol/L (21-32) Anion Gap 10 (6-14) Blood Urea Nitrogen 40mg/dL (7-20) Creatinine 2.6mg/dL (0.6-1.0) Estimated GFR (Cockcroft-Gault) 18.0 Glucose Level 147mg/dL (70-99) Calcium Level 8.6mg/dL (8.5-10.1) Phosphorus Level 3.7mg/dL (2.6-4.7) Magnesium Level 2.0mg/dL (1.8-2.4) Albumin 2.7g/dL (3.4-5.0) Laboratory Tests Test 07/07/16 11:52 07/07/16 16:33 07/07/16 20:46 07/08/16 05:00 Glucose (Fingerstick) 360mg/dL (70-99) 269mg/dL (70-99) 117mg/dL (70-99) Sodium Level 138mmol/L (136-145) Potassium Level 3.9mmol/L (3.5-5.1) Chloride Level 102mmol/L (98-107) Carbon Dioxide Level 26mmol/L (21-32) Anion Gap 10 (6-14) Blood Urea Nitrogen 40mg/dL (7-20) Creatinine 2.6mg/dL (0.6-1.0) Estimated GFR (Cockcroft-Gault) 18.0 Glucose Level 147mg/dL (70-99) Calcium Level 8.6mg/dL (8.5-10.1) Phosphorus Level 3.7mg/dL (2.6-4.7) Magnesium Level 2.0mg/dL (1.8-2.4) Albumin 2.7g/dL (3.4-5.0) Test 07/08/16 06:58 Glucose (Fingerstick) 189mg/dL (70-99) Assessment Assessment Problems Medical Problems: (1) Acute renal failure (ARF) Status: Acute Problems: Plan Plan of Care Problems Medical Problems: (1) Acute renal failure (ARF) Status: Acute ISELA LYNN MD Jul 08, 2016 08:56
[2016-07-08] MEDS ORDERED: IV NORMAL SALINE 1000ML BAG 1,000 ML IV PRN ×2 (09:21)
[2016-07-08] MEDS ORDERED: DIALYSIS PATIENT. MC PRN ×2 (09:30)
[2016-07-08] MEDS ORDERED: 0.9 % SODIUM CHLORIDE 10 ML DISP.SYRIN. IV PRN ×2 (09:30)
[2016-07-08] MEDS ORDERED: BUMETANIDE 1 MG TABLET PO SCH (09:30)
[2016-07-08] MEDS ORDERED: BUME1TAB PO (11:45)
[2016-07-08] MEDS: LEVOTHYROXINE 125 MCG TABLET PO SCH (12:36)
[2016-07-08] MEDS: OMEGA-3 FATTY ACIDS/FISH OIL 1,000 MG CAPSULE. PO SCH (12:36)
[2016-07-08] MEDS: FAMOTIDINE 20 MG TABLET. PO SCH (12:36)
[2016-07-08] MEDS: FOLIC ACID 1 MG TABLET PO SCH (12:37)
[2016-07-08] MEDS: HYDRALAZINE 10 MG TABLET PO SCH (12:37)
[2016-07-08] MEDS: CARVEDILOL 6.25 MG TABLET PO SCH (12:37)
[2016-07-08] MEDS: AMLODIPINE BESYLATE 5 MG TABLET PO SCH (12:38)
[2016-07-08] MEDS: FLUTICASONE 50MCG/NASAL SPRAY 16GM BOTTLE. NS SCH (12:38)
[2016-07-08] MEDS: ALLOPURINOL 100 MG TABLET. PO SCH (12:38)
[2016-07-08] MEDS: ASPIRIN ENTERIC COATED 81 MG TABLET.DR. PO SCH (12:38)
[2016-07-08] MEDS: TRAMADOL 50 MG TABLET. PO SCH (12:38)
[2016-07-08 12:41] VITALS: BP 136/59
[2016-07-08] MEDS: AMIODARONE HCL 200 MG TABLET PO SCH (12:41)
--- NOTE | 2016-07-08 14:32 | PDOC3 ---
Discharge Summary [facility] Date of Admission: Jul 05, 2016 Discharge Date: Jul 08, 2016 Admitting Diagnosis ESRD, progression of disease Initiation of HD nephropathy likely from Dm1, and htn DM1, good control, hypothyroid, htn, anemia,of CKD CHF, chronic combines systolic and diastolic, stable, insomnia, Problems: Final Diagnosis Problems Medical Problems: (1) Acute renal failure (ARF) Status: Acute CONSULTS renal Brief Hospital Course Ms. Ellis is a 76 old F, was sent from renal clinic for worsening CKD. wo sob, + leg edema. pt got chest HD cath, HD started, outpt HD set up. dc home today.pt feels good. dc time 35min General: Alert, Oriented X3, Cooperative, No acute distress Abdomen: Normal bowel sounds, Soft Extremities: No clubbing, Normal pulses, Other (tr edema) Skin: No rashes, No significant lesion Problems: Disposition home CONDITION AT DISCHARGE: Improved Diet renal Scheduled Allopurinol (Allopurinol) 1 TAB PO DAILY (Reported) Amiodarone Hcl (Amiodarone Hcl) 1 TAB PO DAILY (Reported) Amlodipine Besylate (Amlodipine Besylate) 5 MG PO HS (Reported) Aspirin (Aspir 81) 1 TAB PO BID (Reported) Bumetanide (Bumetanide) 2 MG PO BID Carvedilol (Coreg) 1 TAB PO BID (Reported) Famotidine (Famotidine) 20 MG PO BID (Reported) Fluticasone Propionate (Flonase Allergy Relief) 2 SPRAYS NS DAILY (Reported) Folic Acid (Folic Acid) 1 MG PO DAILY (Reported) Gluc 2KCL/Chondr/Ashley Hy/Hy Ac (Glucosamine & Chondroitin Cap) 1 EACH PO BID ( Reported) Hydralazine Hcl (Hydralazine Hcl) 10 MG PO BID (Reported) Insulin Aspart (Novolog) 6 UNIT SQ DAILYWBKFT (Reported) Insulin Aspart (Novolog) 5 UNIT SQ DAILYWLUN (Reported) Insulin Aspart (Novolog) 2 UNIT SQ DAILYWSUP (Reported) Insulin Glargine,Hum.rec.anlog (Lantus) 7 UNIT SQ HS (Reported) Levothyroxine Sodium (Synthroid) 125 MCG PO DAILYAC (Reported) Windsor-3 Fatty Acids/Fish Oil (Windsor 3 Fish Oil Softgel) 1 EACH PO DAILY ( Reported) Pravastatin Sodium (Pravastatin Sodium) 40 MG PO HS (Reported) Senna Keene Extract (Senna) 176 MG PO HS (Reported) Tramadol Hcl (Tramadol Hcl) 1 TAB PO BID (Reported) Trazodone Hcl (Trazodone Hcl) 50 MG PO HS (Reported) Warfarin Sodium (Warfarin Sodium) 2 MG PO DAILY (Reported) Scheduled PRN Metoclopramide Hcl (Reglan) 10 MG PO QIDACHS PRN PRN NAUSEA (Reported) Nitroglycerin (Nitrostat) 0.4 MG SL PRN Q5MIN PRN PRN CHEST PAIN (Reported) Miscellaneous Medications Ascorbate Calcium (Vitamin C) 500 MG PO (Reported) Cholecalciferol (Vitamin D3) (Vitamin D-3) 1,000 UNIT PO (Reported) Glucagon,Human Recombinant (Glucagon Emergency Kit) 1 MG IM (Reported) Vitamin B Complex (Vitamin B Complex) 1 EACH PO (Reported) Discontinued Medications Furosemide (Lasix) 80 MG PO BID (Reported) Follow Up renal next week LO CASTILLO MD Jul 08, 2016 14:31
== END 2016-07-08 13:22 | disposition home or self-care (01) | DRG 291 ==
LOC: 5 SOUTH 09:55
PROVIDERS: ADMIT Internal Medicine; ATTEND Internal Medicine
PROC: 02H633Z Insertion of Infusion Device into Right Atrium, Percutaneous Approach (ICD-10-PCS; 2016-07-05)
PROC: 5A1D60Z (ICD-10-PCS; principal; 2016-07-08)
DX: I13.2 Hypertensive heart and chronic kidney disease with heart failure and with stage 5 chronic kidney disease, or end stage renal disease (principal); N18.6 End stage renal disease; I50.42 Chronic combined systolic (congestive) and diastolic (congestive) heart failure; E10.22 Type 1 diabetes mellitus with diabetic chronic kidney disease; D64.9 Anemia, unspecified; E03.9 Hypothyroidism, unspecified; E10.21 Type 1 diabetes mellitus with diabetic nephropathy; E10.319 Type 1 diabetes mellitus with unspecified diabetic retinopathy without macular edema; E78.5 Hyperlipidemia, unspecified; G47.00 Insomnia, unspecified; I25.10 Atherosclerotic heart disease of native coronary artery without angina pectoris; I48.91 Unspecified atrial fibrillation; N27.0 Small kidney, unilateral; Z79.4 Long term (current) use of insulin; Z85.3 Personal history of malignant neoplasm of breast; Z87.891 Personal history of nicotine dependence; Z88.0 Allergy status to penicillin; Z92.21 Personal history of antineoplastic chemotherapy; Z92.3 Personal history of irradiation; Z95.1 Presence of aortocoronary bypass graft; Z99.2 Dependence on renal dialysis; Z79.899 Other long term (current) drug therapy; Z79.82 Long term (current) use of aspirin
CPT/HCPCS: 36415; 36556; 36558; 71020; 76937; 77001; 80069; 80074; 82947; 83540; 83550; 83735; 85018; 85610; 86704; 86706; C1750; C1769; C1892; J1815; J2250; J3010; J3490; 97116

== ENCOUNTER 2016-07-28 11:51 | Day surgery (SDC) | payer MEDICARE, BC, OTHER ==
[~2016-07-28] VITALS: Ht 160 cm; Wt 63.5 kg
[~2016-07-28 11:51] MED LIST: ALLO100T PO; AMIO200T2 PO; AMLO5TAB2 PO; ASCO-78 PO; ASPI-482 PO; BUME1TAB PO; CARV6.25 PO; CHOL20004 PO; FAMO20TA5 PO; FLUT9.9S NS; FOLI1TAB16 PO; FURO80TA72 PO; GLUC1CAP48 PO; GLUC1KIT IM; HEPARIN S0DIUM 5,000 UNIT in IV NORMAL SALINE 500ML BAG 500 ML IRR ONE; HYDR-2867 PO; INSU100C4 SQ; INSU100V8 SQ; LEVO125T PO; LIDOCAINE 1% PF 48 ML, SODIUM BICARBONATE VIAL 12 MEQ in TOTAL VOLUME SYRINGE 60 ML ID ONE; METO10TA81 PO; NITR0.4T SL; OMEG1CAP38 PO; PRAV40TA2 PO; SENN176S3 PO; TRAM50TA PO; TRAZ50TA15 PO; VANCOMYCIN 1GM IVPB FOR OMNI 250 ML IV PRN; VITA1CAP PO; WARF2TAB7 PO
[2016-07-28] MEDS ORDERED: IV RINGERS,LACTATED 1000ML 1,000 ML IV SCH ×2 (12:01)
[2016-07-28] MEDS ORDERED: LIDOCAINE 1% 1 ML SYRINGE. ID PRN ×4 (12:15)
[2016-07-28] MEDS ORDERED: MIDAZOLAM HCL/PF 2 MG/2 ML VIAL. IV PRN ×4 (12:15)
[2016-07-28] MEDS ORDERED: IV NORMAL SALINE 1000ML BAG 1,000 ML IV SCH ×2 (12:15→13:02)
[2016-07-28] MEDS ORDERED: FENTANYL PF 100 MCG/2 ML VIAL. IV PRN ×8 (12:15)
[2016-07-28 13:00] LABS: BASO % 0 % (0-3); EOS % 15 % (0-3); HEMATOCRIT 35.4 % (36.0-47.0); HEMOGLOBIN 11.5 g/dL (12.0-15.5); LYMPH # 0.6 x10^3/uL (1.0-4.8); LYMPH % 11 % (24-48); MEAN CORPUSCULAR HEMOGLOBIN 33 pg (25-35); MEAN CORPUSCULAR HGB CONC 33 g/dL (31-37); MEAN CORPUSCULAR VOLUME 101 fL (79-100); MONO % 15 % (0-9); NEUT % 60 % (31-73); PLATELET COUNT 255 x10^3/uL (140-400); RED BLOOD COUNT 3.52 x10^6/uL (3.50-5.40); WHITE BLOOD COUNT 5.5 x10^3/uL (4.0-11.0)
[2016-07-28 13:08] LABS: CALCIUM 8.9 mg/dL (8.5-10.1); CREATININE 2.3 mg/dL (0.6-1.0); GFR 20.7
[2016-07-28 13:11] LABS: INR 1.2 (0.8-1.1); PROTHROMBIN TIME PATIENT 14.3 SEC (11.7-14.0)
[2016-07-28] MEDS ORDERED: SURGICEL FIBRILLAR 1X2 EACH. ONE (13:27)
--- NOTE | 2016-07-28 13:48 | DISCH ---
DISCHARGE INSTRUCTIONS Condition on Discharge Condition on Discharge: Stable Activity After Discharge Activity Instructions for Disc: Activity as tolerated Bathing Instructions: Shower-keep dressing dry (may remove dressing and shower in 2 days) Wound Incision Care Wound/Incision Care: Ice to area for comfort, Keep wound elevated Contacting the DRJasmin after DC Call your doctor for: If your condition worsens Follow-Up Follow up with: Dr. Keller 08/17/2016 2:00 Warfarin Follow-Up Warfarin Follow UP: follow up with primary care for management ALBIN CUEVAS APRN Jul 28, 2016 13:48
[2016-07-28] MEDS ORDERED: ONDANSETRON PF 4 MG/2 ML VIAL. ONE (14:04)
[2016-07-28] MEDS ORDERED: FENTANYL PF 100 MCG/2 ML VIAL. ONE (14:04)
[2016-07-28] MEDS ORDERED: LIDOCAINE 2% 100 MG/5 ML DISP.SYRIN. ONE (14:04)
[2016-07-28] MEDS ORDERED: PROPOFOL 20 ML IV ONE (14:04)
[2016-07-28] MEDS ORDERED: HEPARIN for IV BOLUS 10,000 UNIT/10 ML VIAL. ONE (14:46)
--- NOTE | 2016-07-28 15:36 | PDOC ---
VASCULAR BRIEF OPERATIVE NOTE Date: Jul 28, 2016 Pre-Op Diagnosis ESRD Post-Op Diagnosis SAME Procedure Performed left brachiobasilc AVF Surgeon Krishna Anesthesia Type: MAC, Local IKE HERNANDEZ MD Jul 28, 2016 15:36
[2016-07-28] MEDS ORDERED: OXYC-323 PO (16:08)
[2016-07-28 16:25] VITALS: BP 123/50
--- NOTE | 2016-07-28 21:11 | OP ---
DATE OF SURGERY: 07/28/2016 PREOPERATIVE DIAGNOSIS: End-stage renal disease. POSTOPERATIVE DIAGNOSIS: End-stage renal disease. PROCEDURE PERFORMED: Left brachiobasilic arteriovenous fistula. SURGEON: Ike Keller M.D. ANESTHETIC: Local MAC. INDICATION: This is a 76-year-old female with end-stage renal disease. She has needed long-term hemodialysis. She has a dialysis catheter in place at this time. Preoperative vein mapping suggested her best outflow vein was the basilic vein in the upper arm on the left. The vein was also patent, but a smaller vessel. The patient has had a previous right mastectomy. DESCRIPTION OF PROCEDURE: The patient was brought to the operating room, prepped and draped in a sterile fashion. Preoperative antibiotics were administered. Intravenous sedation was administered and 1% Xylocaine was then infiltrated in the antecubital fossa. A small transverse incision was placed. The median antecubital vein, basilic, cephalic and inflow veins to the elbow were all isolated. vein was a slightly smaller vein and the basilic vein was about 3.5 mm vein, looked like it could actually be a good vessel long-term for AV access and may not require transposition, which the basilic vein would require. The brachioradialis fascia was incised and brachial artery was isolated. This was a 3.5 mm vein slightly calcified, but adequate excellent pulse. The patient received 3000 units of intravenous heparin. The distal branches of the inflow veins were clamped, divided and ligated. The cephalic and basilic vein, both were controlled with small spring bulldogs. An incision was then placed on the basilic vein. Through the median antecubital vein, which would allow both the basilic and the cephalic vein to function as outflow vessels. Vessel loops were secured on the brachial artery and longitudinal arteriotomy was made with 11 blade, extended with Kilgore scissors. The vein was trimmed and spatulated end-to-side anastomosis was completed with 7-0 Prolene suture. Blood flow was instituted through the fistula with an excellent outflow thrill in both the cephalic and basilic vein. There was still excellent flow in the radial artery by Doppler examination. The wound was then closed with 3-0 Vicryl in deep subcutaneous tissue and a running 3-0 Vicryl in a subcuticular tissue, Steri-Strip was applied. The patient moved to recovery in satisfactory stable condition. IKE KELLER MD DR: SENA/deb JOB#: [id number] / [id number]
== END 2016-07-28 16:43 | disposition home or self-care (01) ==
LOC: SURG 11:51
DX: N18.6 End stage renal disease (principal)
CPT/HCPCS: 36415; 36821; 80048; 85027; 85610; 85730; C1769; J2405; J2704; J3010; J3370; J7040

== ENCOUNTER 2016-10-13 11:58 | Day surgery (SDC) | payer MEDICARE, BC, OTHER ==
[~2016-10-13] VITALS: Ht 162.6 cm; Wt 58.1 kg
[~2016-10-13 11:58] MED LIST changes: -CHOL20004 PO; +CHOL200074 PO; -HEPARIN S0DIUM 5,000 UNIT in IV NORMAL SALINE 500ML BAG 500 ML IRR ONE; +HEPARIN SODIUM 5,000 UNIT in IV NORMAL SALINE 500ML BAG 500 ML IRR ONE; +HYDROmorphone 2 MG/ML VIAL IV PRN; +IV RINGERS,LACTATED 1000ML 1,000 ML IV SCH; +LIDOCAINE 1% 1 ML SYRINGE. ID PRN; +MEPERIDINE PF 25 MG/ML VIAL. IV PRN; +MIDAZOLAM HCL/PF 2 MG/2 ML VIAL. IV PRN; +MORPHINE SULFATE 4 MG/ML DISP.SYRIN. IV PRN; +OXYC-323 PO; +PROCHLORPERAZINE 10 MG/2 ML VIAL. IV PRN; +SURGICEL FIBRILLAR 1X2 EACH. ONE; +diphenhydrAMINE 50 MG/ML VIAL IV PRN; +fentaNYL PF VIAL 100 MCG/2 ML VIAL IV PRN
[2016-10-13 12:55] LABS: BASO # 0.1 x10^3/uL (0.0-0.2); BASO % 2 % (0-3); EOS % 24 % (0-3); HEMATOCRIT 36.2 % (36.0-47.0); HEMOGLOBIN 11.9 g/dL (12.0-15.5); LYMPH # 0.7 x10^3/uL (1.0-4.8); LYMPH % 11 % (24-48); MEAN CORPUSCULAR HEMOGLOBIN 32 pg (25-35); MEAN CORPUSCULAR HGB CONC 33 g/dL (31-37); MEAN CORPUSCULAR VOLUME 98 fL (79-100); MONO % 15 % (0-9); NEUT % 48 % (31-73); PLATELET COUNT 255 x10^3/uL (140-400); RED BLOOD COUNT 3.69 x10^6/uL (3.50-5.40); RED CELL DISTRIBUTION WIDTH 18.6 % (11.5-14.5); WHITE BLOOD COUNT 5.8 x10^3/uL (4.0-11.0)
[2016-10-13] MEDS ORDERED: SURGICEL FIBRILLAR 1X2 EACH. ONE (13:09)
[2016-10-13 13:11] LABS: INR 1.2 (0.8-1.1)
[2016-10-13 13:15] LABS: CALCIUM 8.7 mg/dL (8.5-10.1); CREATININE 3.4 mg/dL (0.6-1.0); GFR 13.2; POTASSIUM 4.2 mmol/L (3.5-5.1)
[2016-10-13] MEDS ORDERED: ONDANSETRON PF 4 MG/2 ML VIAL. ONE (13:43)
[2016-10-13] MEDS ORDERED: DEXAMETHASONE SOD PHOS 20 MG/5 ML VIAL. ONE (13:43)
[2016-10-13] MEDS ORDERED: LIDOCAINE 2% PF Vial for OR 5 ML VIAL. ONE (13:43)
[2016-10-13] MEDS ORDERED: ETOMIDATE 20 MG/10 ML VIAL. IV ONE (13:43)
[2016-10-13] MEDS ORDERED: FAMOTIDINE 20 MG/2 ML VIAL ONE (13:43)
[2016-10-13] MEDS ORDERED: fentaNYL PF VIAL 100 MCG/2 ML VIAL ONE (13:46)
[2016-10-13 14:47] LABS: % EOS 19 % (0-5); PLT ESTIMATE ADEQUATE (ADEQUATE)
[2016-10-13 14:48] LABS: ANISOCYTOSIS SLIGHT
[2016-10-13] MEDS ORDERED: PROPOFOL 20 ML IV ONE (14:48)
[2016-10-13] MEDS ORDERED: VANCOMYCIN 1GM IVPB FOR OMNI. ONE (15:00)
[2016-10-13] MEDS ORDERED: SEVOFLURANE 31 TO 60 MINUTES. IH ONE (15:02)
[2016-10-13] MEDS ORDERED: LABETALOL 20 MG/4 ML DISP.SYRIN. ONE (15:14)
[2016-10-13] MEDS ORDERED: HEPARIN for IV BOLUS 10,000 UNIT/10 ML VIAL. ONE (15:18)
--- NOTE | 2016-10-13 16:02 | PDOC ---
BRIEF OPERATIVE NOTE Date: Oct 13, 2016 Pre-Op Diagnosis ESRD Post-Op Diagnosis same Procedure Performed transposition SELVIN AVF, SBL Surgeon Krishna Anesthesia Type: General IKE HERNANDEZ MD Oct 13, 2016 16:02
[2016-10-13 16:59] VITALS: BP 132/68
--- NOTE | 2016-10-13 20:22 | OP ---
DATE OF SURGERY: 10/13/2016 PREOPERATIVE DIAGNOSIS: Renal failure. POSTOPERATIVE DIAGNOSIS: Renal failure. PROCEDURE PERFORMED: Transposition of left brachial basilic arteriovenous fistula and side branch ligation of outflow cephalic vein. SURGEON: Ike Keller MD ANESTHESIA: General. INDICATIONS: This is a 76-year-old female, who is on dialysis by way of a right internal jugular dialysis catheter. She has had previous brachial basilic arteriovenous fistula. She still has flow into her cephalic vein from his fistula. The basilic vein is the dominant outflow vessel adequate caliber and good flow. Recommendation is for transposition and side branch ligation of the outflow cephalic vein ____ the blood flow through the dominant basilic vein. DESCRIPTION OF PROCEDURE: The patient given a general anesthetic. Preoperative antibiotics were administered. She was prepped and draped in sterile fashion. Longitudinal incision made in the upper arm extending down into the antecubital incision. The basilic vein was identified, isolated, dissected free from surrounding tissues. The individual side branches were ligated with 3-0 silk suture, clipped distally and divided. The vein was mobilized up into the mid upper arm was transitioned to the deep brachial vein. The cephalic vein at the antecubital fossa was isolated and ligated with 2-0 silk suture. Flap was then elevated in the upper arm subcutaneous tissues. The vein was transitioned into that position and the subcutaneous tissues were closed trapping the vein and the new more lateral position. Once this running suture had been approximated, the vein was inspected. There was excellent flow and no compression. The subcuticular tissue was then closed with a running 3-0 Vicryl. Steri-Strips and sterile dressings were applied. The patient moved to recovery in satisfactory stable condition. IKE KELLER MD DR: SENA/deb JOB#: [id number] / [id number]
== END 2016-10-13 17:38 | disposition home or self-care (01) ==
LOC: SURG 11:58
DX: I13.0 Hypertensive heart and chronic kidney disease with heart failure and stage 1 through stage 4 chronic kidney disease, or unspecified chronic kidney disease (principal); E11.22 Type 2 diabetes mellitus with diabetic chronic kidney disease; N18.9 Chronic kidney disease, unspecified; I50.9 Heart failure, unspecified; I48.91 Unspecified atrial fibrillation; I25.10 Atherosclerotic heart disease of native coronary artery without angina pectoris; E03.9 Hypothyroidism, unspecified; Z86.69 Personal history of other diseases of the nervous system and sense organs; Z87.01 Personal history of pneumonia (recurrent); Z90.710 Acquired absence of both cervix and uterus; Z86.39 Personal history of other endocrine, nutritional and metabolic disease; Z87.891 Personal history of nicotine dependence; Z87.39 Personal history of other diseases of the musculoskeletal system and connective tissue
CPT/HCPCS: 36415; 37607; 80048; 82962; 85007; 85027; 85610; 85730; C1769; J1100; J2405; J2704; J3010; J3370; J3490; J7040; S0028

== ENCOUNTER 2017-01-05 07:54 | Outpatient (CLI) | payer MEDICARE, BC, OTHER ==
[~2017-01-05] VITALS: Ht 137.2 cm; Wt 58.1 kg
[2017-01-05] VITALS (7 sets, daily range): BP systolic 114–135; BP diastolic 50–71
[~2017-01-05 07:54] MED LIST changes: -HEPARIN SODIUM 5,000 UNIT in IV NORMAL SALINE 500ML BAG 500 ML IRR ONE; -HYDROmorphone 2 MG/ML VIAL IV PRN; -IV RINGERS,LACTATED 1000ML 1,000 ML IV SCH; -LIDOCAINE 1% 1 ML SYRINGE. ID PRN; -LIDOCAINE 1% PF 48 ML, SODIUM BICARBONATE VIAL 12 MEQ in TOTAL VOLUME SYRINGE 60 ML ID ONE; -MEPERIDINE PF 25 MG/ML VIAL. IV PRN; -MIDAZOLAM HCL/PF 2 MG/2 ML VIAL. IV PRN; -MORPHINE SULFATE 4 MG/ML DISP.SYRIN. IV PRN; -PROCHLORPERAZINE 10 MG/2 ML VIAL. IV PRN; -SURGICEL FIBRILLAR 1X2 EACH. ONE; -VANCOMYCIN 1GM IVPB FOR OMNI 250 ML IV PRN; -diphenhydrAMINE 50 MG/ML VIAL IV PRN; -fentaNYL PF VIAL 100 MCG/2 ML VIAL IV PRN
[2017-01-05] MEDS ORDERED: FAMOTIDINE 20 MG/2 ML VIAL IVP ONE (08:30)
[2017-01-05] MEDS ORDERED: methylPREDNISolone SOD SUCC PF 125 MG/2 ML VIAL. IV ONE (08:30)
[2017-01-05] MEDS ORDERED: diphenhydrAMINE 50 MG/ML VIAL IVP ONE (08:30)
[2017-01-05] MEDS ORDERED: UBID200C27 PO (08:34)
[2017-01-05] MEDS ORDERED: VIT1TABL32 PO (08:34)
[2017-01-05] MEDS ORDERED: WARF1TAB74 PO (08:34)
[2017-01-05 08:43] LABS: BASO % 0 % (0-3); EOS % 0 % (0-3); HEMATOCRIT 37.6 % (36.0-47.0); HEMOGLOBIN 12.7 g/dL (12.0-15.5); LYMPH # 0.3 x10^3/uL (1.0-4.8); LYMPH % 3 % (24-48); MEAN CORPUSCULAR HEMOGLOBIN 35 pg (25-35); MEAN CORPUSCULAR HGB CONC 34 g/dL (31-37); MEAN CORPUSCULAR VOLUME 103 fL (79-100); MONO % 1 % (0-9); NEUT % 96 % (31-73); PLATELET COUNT 268 x10^3/uL (140-400); RED BLOOD COUNT 3.66 x10^6/uL (3.50-5.40); RED CELL DISTRIBUTION WIDTH 15.4 % (11.5-14.5); WHITE BLOOD COUNT 9.5 x10^3/uL (4.0-11.0)
[2017-01-05 08:53] LABS: PROTHROMBIN TIME PATIENT 21.7 SEC (11.7-14.0)
[2017-01-05] MEDS ORDERED: LIDOCAINE 1% / SOD BICARB 8.4% 20 ML VIAL. IJ ONE (09:15)
[2017-01-05] MEDS ORDERED: IODIXANOL 320 MG/ML 100 ML VIAL. IV ONE (09:15)
[2017-01-05] MEDS ORDERED: MIDAZOLAM HCL/PF 2 MG/2 ML VIAL. IV ONE (09:45)
[2017-01-05] MEDS ORDERED: fentaNYL PF VIAL 100 MCG/2 ML VIAL IV ONE (09:45)
[2017-01-05] MEDS ORDERED: HEPARIN for IV BOLUS 10,000 UNIT/10 ML VIAL. ONE (09:54)
[2017-01-05] MEDS ORDERED: HEPARIN for IV BOLUS 10,000 UNIT/10 ML VIAL. IV ONE (10:00)
--- NOTE | 2017-01-05 11:06 | RAD ---
01/05/2017 1. Left upper extremity fistulogram 2. Balloon angioplasty of a proximal outflow vein stenosis Indication: Left upper extremity AV fistula, non-maturing. Patient is status post superficialization and ligation of collaterals Discussion: The risks and benefits of the procedure were discussed the patient. Informed consent was obtained. A timeout procedure was performed. All elements of maximal sterile barrier technique including the use of a cap, mask, sterile gown, sterile gloves, large sterile sheet, appropriate hand hygiene, and 2% chlorhexidine for cutaneous antisepsis (or acceptable alternative antiseptic per current guidelines) were followed for this procedure. Ultrasound evaluation demonstrated a patent left brachiobasilic fistula with narrowing of the proximal outflow vein. The fistula was accessed directed towards the arterial anastomosis using direct ultrasound guidance and micropuncture technique. Static ultrasound reference images restored in the medical record. Fistulogram was were obtained. There is a high-grade stenosis of the proximal outflow vein. The narrow portion of stenosis measured as small as 1 to 2 mm. The remainder of the outflow vein, and central veins are widely patent. The stenosis and arterial anastomosis was crossed with an 018 guidewire. Balloon angioplasty of the [region was performed with 2.5 mm, subsequently a 3.5 mm balloon. There is subsequent significant improvement in morphology and flow through the region. A palpable thrill through the fistula is also improved. THe sheath was removed and a pursestring suture placed. A sterile dressing was applied. No immediate complications were seen. 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 This is significantly improved status post balloon angioplasty.
[2017-01-05 12:25] LABS: PLT ESTIMATE ADEQUATE (ADEQUATE)
== END 2017-01-05 11:45 | disposition home or self-care (01) ==
LOC: INTRAD 07:54
PROVIDERS: ATTEND Registered Nurse Medical-Surgical
DX: I87.1 Compression of vein (principal); I48.91 Unspecified atrial fibrillation; I10 Essential (primary) hypertension; I12.0 Hypertensive chronic kidney disease with stage 5 chronic kidney disease or end stage renal disease; E11.22 Type 2 diabetes mellitus with diabetic chronic kidney disease; N18.6 End stage renal disease; M19.91 Primary osteoarthritis, unspecified site; Z87.39 Personal history of other diseases of the musculoskeletal system and connective tissue; Z99.2 Dependence on renal dialysis; Z88.0 Allergy status to penicillin; Z88.2 Allergy status to sulfonamides; Z88.8 Allergy status to other drugs, medicaments and biological substances; Z91.041 Radiographic dye allergy status; Z86.69 Personal history of other diseases of the nervous system and sense organs; Z86.73 Personal history of transient ischemic attack (TIA), and cerebral infarction without residual deficits
CPT/HCPCS: 36415; 36902; 76937; 85025; 85610; 99152; 99153; C1725; C1769; C1892; C1894; J1200; J1644; J2250; J3010; S0028; 85007

== ENCOUNTER 2017-02-28 06:30 | Outpatient (CLI) | payer MEDICARE, BC, OTHER ==
[~2017-02-28 06:30] MED LIST changes: +UBID200C27 PO; +VIT1TABL32 PO; +WARF1TAB74 PO
[2017-02-28] MEDS ORDERED: diphenhydrAMINE HCL 25 MG CAPSULE PO ONE ×2 (07:06→08:00)
[2017-02-28 07:24] LABS: BASO % 1 % (0-3); EOS % 0 % (0-3); HEMATOCRIT 38.7 % (36.0-47.0); HEMOGLOBIN 12.7 g/dL (12.0-15.5); LYMPH # 0.3 x10^3/uL (1.0-4.8); LYMPH % 3 % (24-48); MEAN CORPUSCULAR HEMOGLOBIN 35 pg (25-35); MEAN CORPUSCULAR HGB CONC 33 g/dL (31-37); MEAN CORPUSCULAR VOLUME 106 fL (79-100); MONO % 1 % (0-9); NEUT % 96 % (31-73); PLATELET COUNT 305 x10^3/uL (140-400); RED BLOOD COUNT 3.64 x10^6/uL (3.50-5.40); WHITE BLOOD COUNT 9.3 x10^3/uL (4.0-11.0)
[2017-02-28 07:41] LABS: CALCIUM 9.4 mg/dL (8.5-10.1); CREATININE 4.4 mg/dL (0.6-1.0); GFR 9.8; POTASSIUM 4.6 mmol/L (3.5-5.1)
[2017-02-28 07:43] LABS: INR 1.3 (0.8-1.1); PROTHROMBIN TIME PATIENT 15.1 SEC (11.7-14.0)
[2017-02-28 07:51] VITALS: BP 142/65
[2017-02-28] MEDS ORDERED: LIDOCAINE 1% / SOD BICARB 8.4% 20 ML VIAL. IJ ONE ×2 (08:02→08:45)
[2017-02-28] MEDS ORDERED: IODIXANOL 320 MG/ML 100 ML VIAL. ONE (08:02)
[2017-02-28] MEDS ORDERED: LIDOCAINE 1%/EPI 1:100,000 20 ML VIAL. ONE (08:03)
[2017-02-28] MEDS ORDERED: fentaNYL PF VIAL 100 MCG/2 ML VIAL ONE (08:23)
[2017-02-28] MEDS ORDERED: MIDAZOLAM HCL/PF 2 MG/2 ML VIAL. ONE (08:24)
[2017-02-28] MEDS ORDERED: HEPARIN for IV BOLUS 10,000 UNIT/10 ML VIAL. ONE (08:44)
[2017-02-28] MEDS ORDERED: IODIXANOL 320 MG/ML 100 ML VIAL. IART ONE (08:45)
[2017-02-28] MEDS ORDERED: fentaNYL PF VIAL 100 MCG/2 ML VIAL IV ONE (08:45)
[2017-02-28] MEDS ORDERED: HEPARIN for IV BOLUS 10,000 UNIT/10 ML VIAL. IV ONE (08:45)
[2017-02-28] MEDS ORDERED: MIDAZOLAM HCL/PF 2 MG/2 ML VIAL. IV ONE (08:45)
[2017-02-28 09:26] VITALS: BP 117/59
[2017-02-28 09:50] VITALS: BP 119/57
[2017-02-28 10:15] VITALS: BP 119/57
[2017-02-28 10:30] VITALS: BP 127/88
[2017-02-28 10:45] VITALS: BP 115/55
--- NOTE | 2017-02-28 11:50 | RAD ---
01/05/2017 1. Left upper extremity fistulogram 2. Balloon angioplasty of a recurrent proximal outflow vein stenosis 3. Removal of right internal jugular tunnel dialysis catheter Indication: Left upper extremity AV fistula, history of proximal outflow vein stenosis just beyond anterior anastomosis. This was previously treated with balloon angioplasty however the patient has recurrent low pressure in the graft at dialysis. Patient is status post superficialization and ligation of collaterals Discussion: The risks and benefits of the procedure were discussed the patient. Informed consent was obtained. A timeout procedure was performed. All elements of maximal sterile barrier technique including the use of a cap, mask, sterile gown, sterile gloves, large sterile sheet, appropriate hand hygiene, and 2% chlorhexidine for cutaneous antisepsis (or acceptable alternative antiseptic per current guidelines) were followed for this procedure. Ultrasound evaluation demonstrated a patent left brachiobasilic fistula with narrowing of the proximal outflow vein. The fistula was accessed directed towards the arterial anastomosis using direct ultrasound guidance and micropuncture technique. Static ultrasound reference images restored in the medical record. Fistulogram was performed. There is a recurrent high-grade stenosis of the proximal outflow vein. The narrow portion of stenosis measured as small as 1 to 2 mm. This is treated with 4 mm and 5 mm balloon angioplasty. The remainder of the outflow vein, and central veins are widely patent. There is subsequent significant improvement in morphology and flow through the region. A palpable thrill through the fistula is also improved. THe sheath was removed and a pursestring suture placed. A sterile dressing was applied. No immediate complications were seen. The right chest including the pre-existing dialysis catheter were prepped and draped using sterile barrier technique. 1% lidocaine was administered for local anesthesia. Subcutaneous cuff was freed using minimal blunt dissection. The catheter was removed and manual pressure held to achieve hemostasis. A sterile dressing was applied. Fluoro time 3.3 minutes Dose Area Product 13 Gycm2 Impression: 1. 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 Repeat balloon angioplasty was performed, this time up to 5 mm with significantly improved morphology and flow. Should the stenosis recur, stenting may be need to be considered. 2. Successful removal of right IJ tunneled dialysis catheter
[2017-02-28 13:44] LABS: PLT ESTIMATE ADEQUATE (ADEQUATE)
[2017-02-28 13:46] LABS: MICROCYTOSIS SLIGHT
== END 2017-02-28 11:40 | disposition home or self-care (01) ==
LOC: INTRAD 06:30
PROVIDERS: ATTEND Internal Medicine Nephrology
DX: I12.0 Hypertensive chronic kidney disease with stage 5 chronic kidney disease or end stage renal disease (principal); E11.22 Type 2 diabetes mellitus with diabetic chronic kidney disease; N18.5 Chronic kidney disease, stage 5; M19.90 Unspecified osteoarthritis, unspecified site; Z88.8 Allergy status to other drugs, medicaments and biological substances; Z88.0 Allergy status to penicillin; Z88.2 Allergy status to sulfonamides; Z99.2 Dependence on renal dialysis; I87.1 Compression of vein; I48.91 Unspecified atrial fibrillation; Z86.73 Personal history of transient ischemic attack (TIA), and cerebral infarction without residual deficits; Z86.69 Personal history of other diseases of the nervous system and sense organs; Z87.39 Personal history of other diseases of the musculoskeletal system and connective tissue
CPT/HCPCS: 36415; 36589; 36902; 76937; 77001; 80048; 85007; 85025; 85610; C1725; C1758; C1769; C1892; J1644; J2250; J3010; Q0163; 99152; 99153

== ENCOUNTER 2017-11-14 06:22 | Outpatient (CLI) | payer MEDICARE, BC, OTHER ==
[2017-11-14 07:47] LABS: BASO # 0.1 x10^3/uL (0.0-0.2); BASO % 2 % (0-3); EOS # 2.4 x10^3/uL (0.0-0.7); EOS % 35 % (0-3); HEMATOCRIT 37.4 % (36.0-47.0); HEMOGLOBIN 12.4 g/dL (12.0-15.5); LYMPH # 0.7 x10^3/uL (1.0-4.8); LYMPH % 10 % (24-48); MEAN CORPUSCULAR HEMOGLOBIN 33 pg (25-35); MEAN CORPUSCULAR HGB CONC 33 g/dL (31-37); MEAN CORPUSCULAR VOLUME 101 fL (79-100); MONO # 0.8 x10^3/uL (0.0-1.1); MONO % 11 % (0-9); NEUT # 2.8 x10^3uL (1.8-7.7); NEUT % 42 % (31-73); PLATELET COUNT 289 x10^3/uL (140-400); RED BLOOD COUNT 3.72 x10^6/uL (3.50-5.40); RED CELL DISTRIBUTION WIDTH 15.8 % (11.5-14.5); WHITE BLOOD COUNT 6.8 x10^3/uL (4.0-11.0)
[2017-11-14 07:49] LABS: ADD MAN DIFF? YES
[2017-11-14 08:00] LABS: INR 1.4 (0.8-1.1); PROTHROMBIN TIME PATIENT 16.2 SEC (11.7-14.0)
[2017-11-14 08:01] LABS: PARTIAL THROMBOPLASTIN TIME 35 SEC (24-38)
[2017-11-14] MEDS ORDERED: LIDOCAINE WITH 8.4% SOD BICARB 3 ML DISP.SYRIN. (08:11)
[2017-11-14] MEDS ORDERED: MIDAZOLAM HCL/PF 2 MG/2 ML VIAL. (08:34)
[2017-11-14] MEDS ORDERED: fentaNYL PF VIAL 100 MCG/2 ML VIAL (08:35)
[2017-11-14] MEDS: LIDOCAINE WITH 8.4% SOD BICARB 3 ML DISP.SYRIN. IJ (08:47)
[2017-11-14] MEDS: MIDAZOLAM HCL/PF 2 MG/2 ML VIAL. IV (08:47)
[2017-11-14] MEDS: fentaNYL PF VIAL 100 MCG/2 ML VIAL IV (08:48)
[2017-11-14 09:24] LABS: % BANDS 6 % (0-9); % BASOS 1 % (0-3); % EOS 33 % (0-5); % LYMPHS 16 % (24-48); % MONOS 8 % (0-10); % SEGS 36 % (35-66); ANISOCYTOSIS SLIGHT; PLT ESTIMATE ADEQUATE (ADEQUATE)
== END 2017-11-14 10:08 | disposition home or self-care (01) ==
LOC: INTRAD 06:22
DX: C94.6 Myelodysplastic disease, not elsewhere classified (principal); Z79.899 Other long term (current) drug therapy; Z88.0 Allergy status to penicillin; Z88.8 Allergy status to other drugs, medicaments and biological substances; Z91.041 Radiographic dye allergy status; Z86.73 Personal history of transient ischemic attack (TIA), and cerebral infarction without residual deficits; I13.2 Hypertensive heart and chronic kidney disease with heart failure and with stage 5 chronic kidney disease, or end stage renal disease; E11.22 Type 2 diabetes mellitus with diabetic chronic kidney disease; N18.6 End stage renal disease; I50.9 Heart failure, unspecified; I25.10 Atherosclerotic heart disease of native coronary artery without angina pectoris; Z95.1 Presence of aortocoronary bypass graft; Z95.5 Presence of coronary angioplasty implant and graft; I48.91 Unspecified atrial fibrillation; Z87.01 Personal history of pneumonia (recurrent); Z85.3 Personal history of malignant neoplasm of breast; Z90.710 Acquired absence of both cervix and uterus; Z90.79 Acquired absence of other genital organ(s); Z90.721 Acquired absence of ovaries, unilateral; Z99.2 Dependence on renal dialysis; M19.90 Unspecified osteoarthritis, unspecified site; E11.319 Type 2 diabetes mellitus with unspecified diabetic retinopathy without macular edema; E03.9 Hypothyroidism, unspecified; Z87.891 Personal history of nicotine dependence; Z79.84 Long term (current) use of oral hypoglycemic drugs
CPT/HCPCS: 36415; 38222; 77012; 85007; 85025; 85610; 85730; 88184; 88185; 88237; 99152; J2250; J3010

== ENCOUNTER 2019-11-05 16:00 | Inpatient (IN) | payer MEDICARE, BC, OTHER ==
[~2019-11-05] VITALS: Ht 160 cm; Wt 57.3 kg
[2019-11-05 15:53] VITALS: BP 150/48
[~2019-11-05 16:00] MED LIST changes: -AMIO200T2 PO; +AMIO200T4 PO; +AMLO5TAB10 PO; -AMLO5TAB2 PO; -BUME1TAB PO; +BUME1TAB3 PO; +FOLI0.8T21 PO; -NITR0.4T SL; +NITR0.4T24 SL; -OXYC-323 PO; +OXYC1TAB15 PO; +TRAZ-118 PO; -TRAZ50TA15 PO; +WARF1TAB2 PO; -WARF1TAB74 PO; -WARF2TAB7 PO; +WARF2TAB96 PO
[2019-11-05] MEDS ORDERED: METO50TA6 PO (16:40)
[2019-11-05] MEDS ORDERED: LISI2.5T PO (16:40)
[2019-11-05] MEDS ORDERED: PHYTONADIONE 10 MG/ML AMPUL. SQ ONE (17:00)
[2019-11-05] MEDS: INSULIN LISPRO 300 UNITS/3 ML VIAL. SQ SCH (17:47)
[2019-11-05 19:56] VITALS: BP 139/52
[2019-11-05] MEDS ORDERED: ONDANSETRON PF 4 MG/2 ML VIAL. IVP PRN (20:45)
[2019-11-05] MEDS: INSULIN GLARGINE SYRINGE. SQ SCH (21:25)
[2019-11-05 22:50] VITALS: BP 102/30
[2019-11-05 22:52] VITALS: BP 94/28
[2019-11-05] MEDS: traZODone 50 MG TABLET. PO SCH (23:15)
[2019-11-05] MEDS: METOPROLOL TART IMMED RELEASE 50 MG TABLET. PO SCH (23:15)
[2019-11-05] MEDS: ATORVASTATIN CALCIUM 10 MG TABLET. PO SCH (23:15)
[2019-11-05] MEDS: IV NORMAL SALINE 1000ML BAG 1,000 ML IV SCH (23:45)
[2019-11-06] VITALS (8 sets, daily range): BP systolic 99–188; BP diastolic 34–54
--- NOTE | 2019-11-06 00:46 | HP ---
ADMIT DATE: 11/05/2019 CHIEF COMPLAINT: GI bleeding. HISTORY OF PRESENT ILLNESS: The patient is a pleasant middle-aged female who presented to the ER in [place], [place]. They called me and explained that her hemoglobin is down to 7.5. She has got rectal bleeding. She is also on dialysis. She also had elevated INR 4.2. I asked them to go ahead and transfer the patient. The patient is currently being examined in room 650. PAST MEDICAL HISTORY: Chronic anticoagulation; end-stage renal disease, she is on dialysis; anemia, hypertension; polypharmacy; hyperlipidemia; coronary artery disease; angina; insomnia; edema; allergic rhinitis; diabetes; hypothyroidism; gout. ALLERGIES: IODINE, PENICILLIN, ISOSORBIDE, METOPROLOL, NITROFURANTOIN, POVIDONE, SULFAMETHOXAZOLE, TRIMETHOPRIM. FAMILY HISTORY: Coronary artery disease. SOCIAL HISTORY: She is retired. She does not drink, smoke or take drugs. MEDICATIONS: Reviewed. She is on 21 meds, please refer to [facility]. REVIEW OF SYSTEMS: GENERAL: No history of weight change, weakness or fevers. SKIN: No bruising, hair changes or rashes. EYES: No blurred, double or loss of vision. NOSE AND THROAT: No history of nosebleeds, hoarseness or sore throat. HEART: No history of palpitations, chest pain or shortness of breath on exertion. LUNGS: Denies cough, hemoptysis, wheezing or shortness of breath. GASTROINTESTINAL: She complains of rectal bleeding. GENITOURINARY: No history of frequency, urgency, hesitancy or nocturia. NEUROLOGIC: Denies history of numbness, tingling, tremor or weakness. PSYCHIATRIC: No history of panic, anxiety or depression. ENDOCRINE: No history of heat or cold intolerance, polyuria or polydipsia. EXTREMITIES: Denies muscle weakness, joint pain, pain on walking or stiffness. PHYSICAL EXAMINATION: VITALS: Within normal limits and are stable. GENERAL: No apparent distress. Alert and oriented. HEENT: Normal cephalic atraumatic, external auditory canals are patent EYES: Extraocular muscles are intact, pupils are equally round and reactive to light and accommodation MUSCULOSKELETAL: Well developed, well nourished, good range of motion ENDOCRINE: No thyromegaly was palpated LYMPHATICS: No cervical chain or axillary nodes were noted HEMATOPOIETIC: No bruising NECK: Supple, no JVD, no thyromegaly was noted. LUNGS: Clear to auscultation in all lung guerrero without rhonchi or wheezing. HEART: RRR, S1, S2 present. Peripheral pulses intact, no obvious murmurs were noted. ABDOMEN: Soft, nontender. Positive bowel sounds no organomegaly, normal bowel sounds. EXTREMITIES: Without any cyanosis, clubbing, or edema. Pedal pulses intact, Homans sign is negative. NEUROLOGIC: Normal speech, normal tone. A & O x3, moves all extremities, no obvious focal deficits. PSYCHIATRIC: Normal affect, normal mood. Stable. SKIN: No ulcerations or rashes, good skin turgor, no jaundice. VASCULAR: Good capillary refill, neurovascular bundle appears to be intact. LABORATORY DATA: Shows hemoglobin of 7.5. We are awaiting further lab. ASSESSMENT AND PLAN: Gastrointestinal bleed, over anticoagulation in a middle-aged female who is on dialysis and has multiple comorbidities. The patient is being admitted. We will check serial hemoglobin levels, transfuse if she drops less than 7. Consult Nephrology, consult GI. I gave her 5 mg of p.o. vitamin K. Home meds, DVT prophylaxis. Full code. PROGNOSIS: Guarded. WALTER DYER DO DR: KARLA/deb JOB#: [id number] / [id number]
[2019-11-06] MEDS ORDERED: LEVOTHYROXINE 125 MCG TABLET PO SCH (07:30)
[2019-11-06 08:51] LABS: BASO # 0.1 x10^3/uL (0.0-0.2); BASO % 1 % (0-3); EOS # 3.2 x10^3/uL (0.0-0.7); EOS % 33 % (0-3); LYMPH # 0.6 x10^3/uL (1.0-4.8); LYMPH % 6 % (24-48); MEAN CORPUSCULAR HEMOGLOBIN 35 pg (25-35); MEAN CORPUSCULAR HGB CONC 35 g/dL (31-37); MEAN CORPUSCULAR VOLUME 101 fL (79-100); MONO # 0.9 x10^3/uL (0.0-1.1); MONO % 9 % (0-9); NEUT # 5.1 x10^3/uL (1.8-7.7); NEUT % 52 % (31-73); PLATELET COUNT 310 x10^3/uL (140-400); RED BLOOD COUNT 2.01 x10^6/uL (3.50-5.40); RED CELL DISTRIBUTION WIDTH 14.6 % (11.5-14.5); WHITE BLOOD COUNT 9.9 x10^3/uL (4.0-11.0)
[2019-11-06 09:00] LABS: HEMATOCRIT 20.2 % (36.0-47.0)
[2019-11-06] MEDS ORDERED: FAMOTIDINE 20 MG TABLET. PO SCH (09:00)
[2019-11-06 09:01] LABS: PROTHROMBIN TIME PATIENT 25.1 SEC (11.7-14.0)
[2019-11-06] MEDS: MULTIVITAMIN I-VITE TABLET. PO SCH (09:04)
[2019-11-06 09:05] LABS: CALCIUM 8.4 mg/dL (8.5-10.1); CREATININE 4.4 mg/dL (0.6-1.0); GFR 9.7; POTASSIUM 4.9 mmol/L (3.5-5.1)
[2019-11-06] MEDS: FOLIC/VIT B COMP W-C (RENAL) TABLET. PO SCH (09:06)
[2019-11-06] MEDS: METOPROLOL TART IMMED RELEASE 50 MG TABLET. PO SCH ×2 (09:07→20:59)
[2019-11-06] MEDS: ALLOPURINOL 100 MG TABLET. PO SCH (09:07)
[2019-11-06] MEDS: PANTOPRAZOLE 40 MG TABLET.DR. PO SCH (09:07)
[2019-11-06] MEDS: FLUTICASONE 50MCG/NASAL SPRAY 16GM BOTTLE. NS SCH (09:08)
[2019-11-06] MEDS: INSULIN LISPRO 300 UNITS/3 ML VIAL. SQ SCH ×3 (09:14→17:00)
--- NOTE | 2019-11-06 09:15 | NUR ---
patient blood sugar 99. patient did not want all 4 units of insulin and requested only to have 3 units. this RN administered 3 units.
[2019-11-06 09:58] LABS: % BASOS 1 % (0-3); % EOS 34 % (0-5); % LYMPHS 5 % (24-48); % MONOS 3 % (0-10); % SEGS 57 % (35-66); PLT ESTIMATE ADEQUATE (ADEQUATE)
--- NOTE | 2019-11-06 10:00 | PDOC2 ---
GI CONSULT Reason For Consult: GI Bleed HPI: HPI: 79 y/o female transferred from [facility]. Tells me 4 days of bright red blood w/ black stools. Last occurred yesterday morning but urinated this morning and noted a scant amount of red blood on tissue. Associated w/ nausea but no vomiting. No abd pain. H/o reflux controlled w/ famotidine. No dysphagia, change in appetite, weight loss, diarrhea, or constipation. No h/o GI bleeding. Had EGD in [place] in the '70s "because they thought I had pancreatic cancer but it was neuropathy." Colonoscopy many years ago (not sure where), recalled as normal. No GB, liver, pancreas, or PUD history. H/o AVR, A Fib, CVA, and CAD on Warfarin and ASA. No NSAIDs. Has been on clear liquids here. Asking if she can go home today. From [place]: Hgb 7.5, Cr 3.6, BUN 51, INR 4.2, +Hemoccult. No imaging. Found in chart - Negative Hepatitis panel in 2017. Bone marrow biopsy for myeloproliferative disorder in 2018: Diagnosis: Peripheral smear: - Normal WBC count with moderate absolute eosinophilia. - Mild red cell macrocytosis. Bone marrow, aspirate smears, clot section, and core biopsy: - Mildly hypercellular marrow showing trilineage hematopoiesis, no significant dyspoiesis, mild marrow eosinophilia, and multiple non-caseating granulomas. - Adequate reticuloendothelial iron stores. Comment: The peripheral smear shows a moderate absolute eosinophilia and mild red cell macrocytosis. The bone marrow is mildly hypercellular and shows trilineage hematopoiesis, no significant dyspoiesis, mild eosinophilia, and multiple isolated and confluent non-caseating granulomas. Possible causes of the epithelioid granulomas in the bone marrow in this case include in fection, immunologic disorders, sarcoidosis, and drug reaction. Special stains for acid-fast bacilli and fungi are negative. The eosinophilia in this case is most likely reactive. Possible causes of reactive eosinophilia include infection, allergic conditions, immunologic disorders including sarcoidosis, and drug reaction. There is no evidence of malignancy. Correlate clinically. PMH: PMH: CAD, A Fib, HTN, ESRD on HD, DM, HLD, breast cancer CABG, cardiac stents, AVR, hysterectomy, lumpectomy w/ chemo/rad, hypothyroidism, gout, allergic rhinitis FH: Family History: No pertinent hx Social History: Smoke: No ALCOHOL: none Drugs: None ROS: GEN: Denies fevers, chills, sweats HEENT: Denies blurred vision, sore throat CV: Denies chest pain RESP: Denies shortness of air, cough GI: Per HPI : Denies hematuria, dysuria ENDO: Denies weight changes NEURO: Denies confusion, dizziness MSK: Denies weakness, joint pain/swelling SKIN: Denies jaundice, pruritus Vitals: Vitals: Vital Signs Date Time Temp Pulse Resp B/P (MAP) Pulse Ox O2 Delivery O2 Flow Rate FiO2 11/06/19 09:07 95 122/38 11/06/19 08:00 Room Air 11/06/19 07:44 98.1 19 91 98.1 Labs: Labs: Laboratory Tests Test 11/05/19 16:57 11/05/19 20:50 11/06/19 02:16 11/06/19 07:16 Glucose (Fingerstick) 311 mg/dL (70-99) 231 mg/dL (70-99) 142 mg/dL (70-99) 99 mg/dL (70-99) Test 11/06/19 08:10 White Blood Count 9.9 x10^3/uL (4.0-11.0) Red Blood Count 2.01 x10^6/uL (3.50-5.40) Hemoglobin 7.0 g/dL (12.0-15.5) Hematocrit 20.2 % (36.0-47.0) Mean Corpuscular Volume 101 fL (79-100) Mean Corpuscular Hemoglobin 35 pg (25-35) Mean Corpuscular Hemoglobin Concent 35 g/dL (31-37) Red Cell Distribution Width 14.6 % (11.5-14.5) Platelet Count 310 x10^3/uL (140-400) Neutrophils (%) (Auto) 52 % (31-73) Lymphocytes (%) (Auto) 6 % (24-48) Monocytes (%) (Auto) 9 % (0-9) Eosinophils (%) (Auto) 33 % (0-3) Basophils (%) (Auto) 1 % (0-3) Neutrophils # (Auto) 5.1 x10^3/uL (1.8-7.7) Lymphocytes # (Auto) 0.6 x10^3/uL (1.0-4.8) Monocytes # (Auto) 0.9 x10^3/uL (0.0-1.1) Eosinophils # (Auto) 3.2 x10^3/uL (0.0-0.7) Basophils # (Auto) 0.1 x10^3/uL (0.0-0.2) Prothrombin Time 25.1 SEC (11.7-14.0) Prothromb Time International Ratio 2.3 (0.8-1.1) Sodium Level 136 mmol/L (136-145) Potassium Level 4.9 mmol/L (3.5-5.1) Chloride Level 101 mmol/L (98-107) Carbon Dioxide Level 23 mmol/L (21-32) Anion Gap 12 (6-14) Blood Urea Nitrogen 61 mg/dL (7-20) Creatinine 4.4 mg/dL (0.6-1.0) Estimated GFR (Cockcroft-Gault) 9.7 Glucose Level 152 mg/dL (70-99) Calcium Level 8.4 mg/dL (8.5-10.1) Allergies: Coded Allergies: Iodinated Contrast Media (Verified Allergy, Severe, Swelling, 10/13/16) throat swells Penicillins (Verified Allergy, Intermediate, 10/13/16) iodine (Verified Allergy, Intermediate, 10/13/16) isosorbide (Verified Allergy, Intermediate, 10/13/16) metoprolol (Verified Allergy, Intermediate, 10/13/16) nitrofurantoin (Verified Allergy, Intermediate, 10/13/16) povidone (Verified Allergy, Intermediate, 10/13/16) sulfamethoxazole (Verified Allergy, Intermediate, Hives, 10/13/16) trimethoprim (Verified Allergy, Intermediate, Hives, 10/13/16) Medications: Current Medications Medications (Trade) Dose Ordered Sig/Allan Route PRN Reason Start Time Stop Time Status Last Admin Dose Admin Allopurinol (Zyloprim) 100 mg DAILY PO 11/06/19 09:00 11/06/19 09:07 Famotidine (Pepcid) 20 mg DAILY PO 11/06/19 09:00 11/06/19 09:06 Insulin Glargine (Lantus Syringe) 4 unit HS SQ 11/05/19 21:00 11/05/19 21:25 Levothyroxine Sodium (Synthroid) 137 mcg DAILYAC PO 11/06/19 07:30 11/06/19 09:06 Metoprolol Tartrate (Lopressor) 50 mg BID PO 11/05/19 21:00 11/06/19 09:07 Multivitamins/ Minerals (I-Jt) 1 tab DAILY PO 11/06/19 09:00 11/06/19 09:04 Fluticasone Propionate (Flonase) 2 spray DAILY NS 11/06/19 09:00 11/06/19 09:08 Insulin Human Lispro (HumaLOG) 4 units TIDWMEALS SQ 11/05/19 17:15 11/06/19 09:14 Vitamin B Complex/ Vitamin C (Alia-Jt) 1 tab DAILY PO 11/06/19 09:00 11/06/19 09:06 Pantoprazole Sodium (Protonix) 40 mg DAILYAC PO 11/06/19 07:30 11/06/19 09:07 Phytonadione (Vitamin K Ampule) 5 mg 1X ONCE SQ 11/05/19 17:00 11/05/19 17:10 DC 11/05/19 17:38 Ondansetron HCl (Zofran) 4 mg PRN Q6HRS PRN IVP NAUSEA/VOMITING 11/05/19 20:45 11/05/19 21:24 Sodium Chloride 1,000 ml @ 50 mls/hr Q20H IV 11/05/19 23:30 11/05/19 23:45 Imaging: Imaging: - PE: GEN: NAD, up in chair HEENT: Atraumatic, PERRL, voice weak LUNGS: diminished anteriorly HEART: RRR +murm ABD: NABS, S/ND/NT EXTREMITY: No edema SKIN: No rashes, no jaundice NEURO/PSYCH: A & O 3 A/P: A/P: Hematochezia/melena Anemia - past bone marrow biopsy as above Coumadin coagulopathy CAD, A Fib, s/p AVR, ESRD on HD - Coumadin and ASA on hold GERD - on H2 bette CRC screen - long ago H/o breast cancer -- Hgb 7 this morning, INR improved, bleeding slowing. Will ask for transfusion, consider bleeding scan or some sort of abdominal imaging - will review w/ Dr. Juarez. Agree w/ acid-customer solutions architect, keep to clears for now. Past bone marrow biopsy per HPI. DARLINE HERNANDES Nov 06, 2019 10:00
[2019-11-06] MEDS ORDERED: LEVO137T3 PO (11:41)
--- NOTE | 2019-11-06 11:53 | PDOC ---
[employer] PROGRESS NOTE Chief Complaint Chief Complaint GI bleed Over anticoagulation Chronic anticoagulation; end-stage renal disease, she is on dialysis; anemia, hypertension; polypharmacy; hyperlipidemia; coronary artery disease; angina; insomnia; edema; allergic rhinitis; diabetes; hypothyroidism; History of Present Illness History of Present Illness 11/06/2019 Patient seen and examined She seems weak and somewhat depressed but stable Chart reviewed Discussed with RN Her hemoglobin is down to 7 I ordered 1 unit of packed red blood cells GI consultation reviewed appreciate their and Vitals/I&O Vitals/I&O: Vital Signs Date Time Temp Pulse Resp B/P (MAP) Pulse Ox O2 Delivery O2 Flow Rate FiO2 11/06/19 11:25 98.2 73 17 140/39 (72) 97 Room Air 98.2 I & O 11/05/19 11/05/19 11/06/19 15:00 23:00 07:00 Intake Total 360 ml 240 ml Balance 360 ml 240 ml Physical Exam General: Alert, Oriented X3 Heart: Regular rate, Normal S1 Lungs: Clear Abdomen: Normal bowel sounds, Soft Extremities: No clubbing, No cyanosis Skin: No rashes, No breakdown Labs Labs: Laboratory Tests Test 11/05/19 16:57 11/05/19 20:50 11/06/19 02:16 11/06/19 07:16 Glucose (Fingerstick) 311 mg/dL (70-99) 231 mg/dL (70-99) 142 mg/dL (70-99) 99 mg/dL (70-99) Test 11/06/19 08:10 11/06/19 11:18 White Blood Count 9.9 x10^3/uL (4.0-11.0) Red Blood Count 2.01 x10^6/uL (3.50-5.40) Hemoglobin 7.0 g/dL (12.0-15.5) Hematocrit 20.2 % (36.0-47.0) Mean Corpuscular Volume 101 fL (79-100) Mean Corpuscular Hemoglobin 35 pg (25-35) Mean Corpuscular Hemoglobin Concent 35 g/dL (31-37) Red Cell Distribution Width 14.6 % (11.5-14.5) Platelet Count 310 x10^3/uL (140-400) Neutrophils (%) (Auto) 52 % (31-73) Lymphocytes (%) (Auto) 6 % (24-48) Monocytes (%) (Auto) 9 % (0-9) Eosinophils (%) (Auto) 33 % (0-3) Basophils (%) (Auto) 1 % (0-3) Neutrophils # (Auto) 5.1 x10^3/uL (1.8-7.7) Lymphocytes # (Auto) 0.6 x10^3/uL (1.0-4.8) Monocytes # (Auto) 0.9 x10^3/uL (0.0-1.1) Eosinophils # (Auto) 3.2 x10^3/uL (0.0-0.7) Basophils # (Auto) 0.1 x10^3/uL (0.0-0.2) Segmented Neutrophils % 57 % (35-66) Lymphocytes % 5 % (24-48) Monocytes % 3 % (0-10) Eosinophils % 34 % (0-5) Basophils % 1 % (0-3) Platelet Estimate Adequate (ADEQUATE) Prothrombin Time 25.1 SEC (11.7-14.0) Prothromb Time International Ratio 2.3 (0.8-1.1) Sodium Level 136 mmol/L (136-145) Potassium Level 4.9 mmol/L (3.5-5.1) Chloride Level 101 mmol/L (98-107) Carbon Dioxide Level 23 mmol/L (21-32) Anion Gap 12 (6-14) Blood Urea Nitrogen 61 mg/dL (7-20) Creatinine 4.4 mg/dL (0.6-1.0) Estimated GFR (Cockcroft-Gault) 9.7 Glucose Level 152 mg/dL (70-99) Calcium Level 8.4 mg/dL (8.5-10.1) Glucose (Fingerstick) 133 mg/dL (70-99) Assessment and Plan Assessmemt and Plan GI bleed Over anticoagulation Chronic anticoagulation; end-stage renal disease, she is on dialysis; anemia, hypertension; polypharmacy; hyperlipidemia; coronary artery disease; angina; insomnia; edema; allergic rhinitis; diabetes; hypothyroidism; Plan Trend hemoglobin Transfuse 1 unit of packed red blood cells Hold her Coumadin for now She is going for dialysis this afternoon GI considering a tagged red blood cell scan Proton pump inhibitors Home meds DVT prophylaxis Full code Prognosis guarded long-term Comment Review of Relevant I have reviewed the following items bakari (where applicable) has been applied. Medications: Current Medications Medications (Trade) Dose Ordered Sig/Allan Route PRN Reason Start Time Stop Time Status Last Admin Dose Admin Allopurinol (Zyloprim) 100 mg DAILY PO 11/06/19 09:00 11/06/19 09:07 Famotidine (Pepcid) 20 mg DAILY PO 11/06/19 09:00 11/06/19 10:11 DC 11/06/19 09:06 Insulin Glargine (Lantus Syringe) 4 unit HS SQ 11/05/19 21:00 11/05/19 21:25 Levothyroxine Sodium (Synthroid) 137 mcg DAILYAC PO 11/06/19 07:30 11/06/19 11:33 DC 11/06/19 09:06 Metoprolol Tartrate (Lopressor) 50 mg BID PO 11/05/19 21:00 11/06/19 09:07 Multivitamins/ Minerals (I-Jt) 1 tab DAILY PO 11/06/19 09:00 11/06/19 09:04 Fluticasone Propionate (Flonase) 2 spray DAILY NS 11/06/19 09:00 11/06/19 09:08 Insulin Human Lispro (HumaLOG) 4 units TIDWMEALS SQ 11/05/19 17:15 11/06/19 09:14 Vitamin B Complex/ Vitamin C (Alia-Jt) 1 tab DAILY PO 11/06/19 09:00 11/06/19 09:06 Pantoprazole Sodium (Protonix) 40 mg DAILYAC PO 11/06/19 07:30 11/06/19 09:07 Phytonadione (Vitamin K Ampule) 5 mg 1X ONCE SQ 11/05/19 17:00 11/05/19 17:10 DC 11/05/19 17:38 Ondansetron HCl (Zofran) 4 mg PRN Q6HRS PRN IVP NAUSEA/VOMITING 11/05/19 20:45 11/05/19 21:24 Sodium Chloride 1,000 ml @ 50 mls/hr Q20H IV 11/05/19 23:30 11/05/19 23:45 Justicifation of Admission Dx: Justifications for Admission: Justification of Admission Dx: Yes Chronic Renal Failure: Impaired Hemostasis CASTLE,NIAL K III DO Nov 06, 2019 11:53
[2019-11-06] MEDS ORDERED: ALBUMIN HUMAN 25% 200 ML IV PRN (12:00)
[2019-11-06] MEDS ORDERED: DIALYSIS PATIENT. MC PRN ×2 (12:00)
[2019-11-06] MEDS ORDERED: 0.9 % SODIUM CHLORIDE 10 ML DISP.SYRIN. IV PRN ×2 (12:00)
[2019-11-06] MEDS ORDERED: IV NORMAL SALINE 1000ML BAG 1,000 ML IV PRN ×2 (12:00)
--- NOTE | 2019-11-06 12:24 | NUR ---
SW following. Spoke with RN and reviewed chart. Spoke with pt and LVM for spouse. Pt lives with spouse in [place] and stated no concerns about returning home. SW asked about PT/OT evaluation. Pt agreeable to HH if needed. Pt Hgb 7.0. Pt on room air. Pt does out-patient dialysis on MWF at 8:30am with [facility], , (fax). SW to continue following.
--- NOTE | 2019-11-06 13:17 | PDOC2 ---
CONSULT Date of Consult Date of Consult DATE: 11/06/19 TIME: 13:05 Reason for Consult Reason for Consult: ESRD Source Source: Chart review, Patient History of Present Illness Reason for Visit: Pt is a 79 y/o CF transferred from [facility]. She reports 4 days of bright red blood w/ black stools. Last occurred yesterday morning. She noted some blood on the tissue when she She had some nausea, No vomiting, No abdominal pain . Denies change in appetite or weight loss, Past Hx significant for ESRD, AVR, A Fib, CVA, and CAD on Warfarin and ASA. Denies NSAIDs. She is on HD MWF at [facility] under Dr Matos . From [place]: Hgb 7.5, Past Medical History Cardiovascular: CAD, CHF, HTN, Hyperlipidemia Pulmonary: No pertinent hx GI: No pertinent hx Heme/Onc: No pertinent hx Hepatobiliary: No pertinent hx Psych: No pertinent hx Rheumatologic: No pertinent hx Infectious disease: No pertinent hx Endocrine: Diabetes Family History Family History: No Significant Social History No ALCOHOL: none Drugs: None Current Medications Current Medications Current Medications Allopurinol (Zyloprim) 100 mg DAILY PO Last administered on 11/06/19at 09:07; Start 11/06/19 at 09:00 Bumetanide (Bumex) 8 mg SuTuThSa PO ; Start 11/07/19 at 09:00 Famotidine (Pepcid) 20 mg DAILY PO Last administered on 11/06/19at 09:06; Start 11/06/19 at 09:00; Stop 11/06/19 at 10:11; Status DC Insulin Glargine (Lantus Syringe) 4 unit HS SQ Last administered on 11/05/19at 21:25; Start 11/05/19 at 21:00 Levothyroxine Sodium (Synthroid) 137 mcg DAILYAC PO Last administered on 11/06/19at 09:06; Start 11/06/19 at 07:30; Stop 11/06/19 at 11:33; Status DC Metoprolol Tartrate (Lopressor) 50 mg BID PO Last administered on 11/06/19at 09:07; Start 11/05/19 at 21:00 Trazodone HCl (Desyrel) 50 mg HS PO ; Start 11/05/19 at 21:00 Multivitamins/ Minerals (I-Jt) 1 tab DAILY PO Last administered on 11/06/19at 09:04; Start 11/06/19 at 09:00 Fluticasone Propionate (Flonase) 2 spray DAILY NS Last administered on 11/06/19at 09:08; Start 11/06/19 at 09:00 Insulin Human Lispro (HumaLOG) 4 units TIDWMEALS SQ Last administered on 11/06/19at 12:25; Start 11/05/19 at 17:15 Lisinopril (Prinivil) 2.5 mg SuTuThSa PO ; Start 11/07/19 at 09:00 Atorvastatin Calcium (Lipitor) 10 mg QHS PO ; Start 11/05/19 at 21:00 Vitamin B Complex/ Vitamin C (Alia-Jt) 1 tab DAILY PO Last administered on 11/06/19at 09:06; Start 11/06/19 at 09:00 Pantoprazole Sodium (Protonix) 40 mg DAILYAC PO Last administered on 11/06/19at 09:07; Start 11/06/19 at 07:30 Phytonadione (Vitamin K Ampule) 5 mg 1X ONCE SQ Last administered on 11/05/19at 17:38; Start 11/05/19 at 17:00; Stop 11/05/19 at 17:10; Status DC Ondansetron HCl (Zofran) 4 mg PRN Q6HRS PRN IVP NAUSEA/VOMITING Last administered on 11/05/19at 21:24; Start 11/05/19 at 20:45 Sodium Chloride 1,000 ml @ 50 mls/hr Q20H IV Last administered on 11/05/19at 23:45; Start 11/05/19 at 23:30 Levothyroxine Sodium (Synthroid) 137 mcg DAILY06 PO ; Start 11/07/19 at 06:00 Sodium Chloride 1,000 ml @ 1,000 mls/hr Q1H PRN IV hypotension; Start 11/06/19 at 12:00; Stop 11/06/19 at 19:00 Albumin Human 200 ml @ 200 mls/hr 1X PRN PRN IV Hypotension; Start 11/06/19 at 12:00; Stop 11/06/19 at 17:59 Sodium Chloride (Normal Saline Flush) 10 ml 1X PRN PRN IV AP catheter pack; Start 11/06/19 at 12:00; Stop 11/06/19 at 19:00 Sodium Chloride (Normal Saline Flush) 10 ml 1X PRN PRN IV CORE BAKER catheter pack; Start 11/06/19 at 12:00; Stop 11/06/19 at 19:00 Sodium Chloride 1,000 ml @ 400 mls/hr Q2H30M PRN IV PATENCY; Start 11/06/19 at 12:00; Stop 11/06/19 at 19:00 Info (PHARMACY MONITORING -- do not chart) 1 each PRN DAILY PRN MC SEE COMMENTS; Start 11/06/19 at 12:00; Status UNV Info (PHARMACY MONITORING -- do not chart) 1 each PRN DAILY PRN MC SEE COMMENTS ; Start 11/06/19 at 12:00 Active Scripts Active Reported Levothyroxine Sodium 137 Mcg Tablet 137 Mcg PO DAILY06 Lisinopril 2.5 Mg Tablet 2.5 Mg PO SUTUTHSA Metoprolol Tartrate 50 Mg Tablet 50 Mg PO BID Alia-Jt Tablet (Folic Acid/Vitamin B Comp W-C) 0.8 Mg Tablet 0.8 Mg PO MOWEFR Bumetanide 1 Mg Tablet 8 Tab PO SUTUTHSA Ocuvite Tablet (Vit A,C & E/Lutein/Minerals) 1 Each Tablet 1 Each PO DAILY Coumadin (Warfarin Sodium) 1 Mg Tablet 1.5 Tab PO QODAY Warfarin Sodium 2 Mg Tablet 2.5 Mg PO DAILY Novolog (Insulin Aspart) 100 Unit/1 Ml Cartridge 4 Unit SQ TIDAC Vitamin B Complex 1 Each Capsule 1 Each PO Trazodone Hcl 50 Mg Tablet 50 Mg PO HS Pravastatin Sodium 40 Mg Tablet 40 Mg PO HS Famotidine 20 Mg Tablet 20 Mg PO BID Nitrostat (Nitroglycerin) 0.4 Mg Tab.subl 0.4 Mg SL PRN Q5MIN PRN Lantus (Insulin Glargine,Hum.rec.anlog) 100 Unit/1 Ml Vial 4 Unit SQ HS Glucosamine & Chondroitin Cap (Gluc 2KCL/Chondr/Ashley Hy/Hy Ac) 1 Each Capsule 1 Each PO BID Glucagon Emergency Kit (Glucagon,Human Recombinant) 1 Mg Kit 1 Mg IM Folic Acid 1 Mg Tablet 1 Mg PO DAILY Flonase Allergy Relief (Fluticasone Propionate) 9.9 Ml Strabane.susp 2 Sprays NS DAILY Aspir 81 (Aspirin) 81 Mg Tablet.dr 1 Tab PO BID Allopurinol 100 Mg Tablet 1 Tab PO DAILY Allergies Allergies: Coded Allergies: Iodinated Contrast Media (Verified Allergy, Severe, Swelling, 10/13/16) throat swells Penicillins (Verified Allergy, Intermediate, 10/13/16) iodine (Verified Allergy, Intermediate, 10/13/16) isosorbide (Verified Allergy, Intermediate, 10/13/16) metoprolol (Verified Allergy, Intermediate, 10/13/16) nitrofurantoin (Verified Allergy, Intermediate, 10/13/16) povidone (Verified Allergy, Intermediate, 10/13/16) sulfamethoxazole (Verified Allergy, Intermediate, Hives, 10/13/16) trimethoprim (Verified Allergy, Intermediate, Hives, 10/13/16) ROS Review of System Per HPI Physical Exam Physical Exam GEN: NAD, sitting up in chair HEEN: OM moist NECK: supple CVS: S1S2, RESP: CTA, No Acc. Muscle Use GI: BS + ve, Non Tender, Non Distended : No CVA tenderness, No Suprapubic Tenderness,No chatman NEURO- AXO, grossly normal SKIN No Rash Vital Signs Vital Signs Date Time Temp Pulse Resp B/P (MAP) Pulse Ox O2 Delivery O2 Flow Rate FiO2 11/06/19 11:25 98.2 73 17 140/39 (72) 97 Room Air 98.2 Assessment & Plan ESRD - On HD MWF at [facility] under Dr. Matos Dialysis today as ordered , Kaveh DUTTON Hematochezia/melena- per GI Anemia - past bone marrow biopsy in 2018 Hgb 12.4 in 2018 no interval labs in PMC records , recent 7.0 Admitted with Hematochezia, per GI CAD- stable A Fib- stable s/p TAVR GERD - on H2 bette H/o breast cancer Labs Labs Laboratory Tests Test 11/05/19 16:57 11/05/19 20:50 11/06/19 02:16 11/06/19 07:16 Glucose (Fingerstick) 311 mg/dL (70-99) 231 mg/dL (70-99) 142 mg/dL (70-99) 99 mg/dL (70-99) Test 11/06/19 08:10 11/06/19 11:18 White Blood Count 9.9 x10^3/uL (4.0-11.0) Red Blood Count 2.01 x10^6/uL (3.50-5.40) Hemoglobin 7.0 g/dL (12.0-15.5) Hematocrit 20.2 % (36.0-47.0) Mean Corpuscular Volume 101 fL (79-100) Mean Corpuscular Hemoglobin 35 pg (25-35) Mean Corpuscular Hemoglobin Concent 35 g/dL (31-37) Red Cell Distribution Width 14.6 % (11.5-14.5) Platelet Count 310 x10^3/uL (140-400) Neutrophils (%) (Auto) 52 % (31-73) Lymphocytes (%) (Auto) 6 % (24-48) Monocytes (%) (Auto) 9 % (0-9) Eosinophils (%) (Auto) 33 % (0-3) Basophils (%) (Auto) 1 % (0-3) Neutrophils # (Auto) 5.1 x10^3/uL (1.8-7.7) Lymphocytes # (Auto) 0.6 x10^3/uL (1.0-4.8) Monocytes # (Auto) 0.9 x10^3/uL (0.0-1.1) Eosinophils # (Auto) 3.2 x10^3/uL (0.0-0.7) Basophils # (Auto) 0.1 x10^3/uL (0.0-0.2) Segmented Neutrophils % 57 % (35-66) Lymphocytes % 5 % (24-48) Monocytes % 3 % (0-10) Eosinophils % 34 % (0-5) Basophils % 1 % (0-3) Platelet Estimate Adequate (ADEQUATE) Prothrombin Time 25.1 SEC (11.7-14.0) Prothromb Time International Ratio 2.3 (0.8-1.1) Sodium Level 136 mmol/L (136-145) Potassium Level 4.9 mmol/L (3.5-5.1) Chloride Level 101 mmol/L (98-107) Carbon Dioxide Level 23 mmol/L (21-32) Anion Gap 12 (6-14) Blood Urea Nitrogen 61 mg/dL (7-20) Creatinine 4.4 mg/dL (0.6-1.0) Estimated GFR (Cockcroft-Gault) 9.7 Glucose Level 152 mg/dL (70-99) Calcium Level 8.4 mg/dL (8.5-10.1) Hepatitis B Surface Antigen Nonreactive (Nonreactive) Glucose (Fingerstick) 133 mg/dL (70-99) Laboratory Tests Test 11/05/19 16:57 11/05/19 20:50 11/06/19 02:16 11/06/19 07:16 Glucose (Fingerstick) 311 mg/dL (70-99) 231 mg/dL (70-99) 142 mg/dL (70-99) 99 mg/dL (70-99) Test 11/06/19 08:10 11/06/19 11:18 White Blood Count 9.9 x10^3/uL (4.0-11.0) Red Blood Count 2.01 x10^6/uL (3.50-5.40) Hemoglobin 7.0 g/dL (12.0-15.5) Hematocrit 20.2 % (36.0-47.0) Mean Corpuscular Volume 101 fL (79-100) Mean Corpuscular Hemoglobin 35 pg (25-35) Mean Corpuscular Hemoglobin Concent 35 g/dL (31-37) Red Cell Distribution Width 14.6 % (11.5-14.5) Platelet Count 310 x10^3/uL (140-400) Neutrophils (%) (Auto) 52 % (31-73) Lymphocytes (%) (Auto) 6 % (24-48) Monocytes (%) (Auto) 9 % (0-9) Eosinophils (%) (Auto) 33 % (0-3) Basophils (%) (Auto) 1 % (0-3) Neutrophils # (Auto) 5.1 x10^3/uL (1.8-7.7) Lymphocytes # (Auto) 0.6 x10^3/uL (1.0-4.8) Monocytes # (Auto) 0.9 x10^3/uL (0.0-1.1) Eosinophils # (Auto) 3.2 x10^3/uL (0.0-0.7) Basophils # (Auto) 0.1 x10^3/uL (0.0-0.2) Segmented Neutrophils % 57 % (35-66) Lymphocytes % 5 % (24-48) Monocytes % 3 % (0-10) Eosinophils % 34 % (0-5) Basophils % 1 % (0-3) Platelet Estimate Adequate (ADEQUATE) Prothrombin Time 25.1 SEC (11.7-14.0) Prothromb Time International Ratio 2.3 (0.8-1.1) Sodium Level 136 mmol/L (136-145) Potassium Level 4.9 mmol/L (3.5-5.1) Chloride Level 101 mmol/L (98-107) Carbon Dioxide Level 23 mmol/L (21-32) Anion Gap 12 (6-14) Blood Urea Nitrogen 61 mg/dL (7-20) Creatinine 4.4 mg/dL (0.6-1.0) Estimated GFR (Cockcroft-Gault) 9.7 Glucose Level 152 mg/dL (70-99) Calcium Level 8.4 mg/dL (8.5-10.1) Hepatitis B Surface Antigen Nonreactive (Nonreactive) Glucose (Fingerstick) 133 mg/dL (70-99) Review All relevant outside records, renal labs, imaging studies, telemetry/EKG's were reviewed. SOPHIA CARRIZALES MD Nov 06, 2019 13:17
[2019-11-06 19:02] LABS: HEMATOCRIT 22.5 % (36.0-47.0); HEMOGLOBIN 8.1 g/dL (12.0-15.5)
[2019-11-06] MEDS: IV NORMAL SALINE 1000ML BAG 1,000 ML IV SCH (19:30)
[2019-11-06] MEDS: ATORVASTATIN CALCIUM 10 MG TABLET. PO SCH (20:59)
[2019-11-06] MEDS: traZODone 50 MG TABLET. PO SCH (20:59)
[2019-11-06] MEDS: INSULIN GLARGINE SYRINGE. SQ SCH (21:00)
[2019-11-07 02:12] VITALS: BP 111/46
[2019-11-07 04:35] LABS: HEMATOCRIT 23.1 % (36.0-47.0); HEMOGLOBIN 7.9 g/dL (12.0-15.5); RED BLOOD COUNT 2.37 x10^6/uL (3.50-5.40); RED CELL DISTRIBUTION WIDTH 15.5 % (11.5-14.5); WHITE BLOOD COUNT 9.9 x10^3/uL (4.0-11.0)
[2019-11-07 05:16] LABS: CALCIUM 8.2 mg/dL (8.5-10.1); CREATININE 2.5 mg/dL (0.6-1.0); GFR 18.7; POTASSIUM 3.9 mmol/L (3.5-5.1)
[2019-11-07 07:16] VITALS: BP 130/47
[2019-11-07] MEDS: MULTIVITAMIN I-VITE TABLET. PO SCH (08:56)
[2019-11-07] MEDS: LEVOTHYROXINE 137 MCG TABLET PO SCH (08:56)
[2019-11-07] MEDS: ALLOPURINOL 100 MG TABLET. PO SCH (08:57)
[2019-11-07] MEDS: METOPROLOL TART IMMED RELEASE 50 MG TABLET. PO SCH ×2 (08:57→20:55)
[2019-11-07] MEDS: FLUTICASONE 50MCG/NASAL SPRAY 16GM BOTTLE. NS SCH (08:57)
[2019-11-07] MEDS: FOLIC/VIT B COMP W-C (RENAL) TABLET. PO SCH (08:58)
[2019-11-07] MEDS: PANTOPRAZOLE 40 MG TABLET.DR. PO SCH (08:58)
[2019-11-07] MEDS ORDERED: LISINOPRIL 5 MG TABLET. PO SCH (09:00)
[2019-11-07] MEDS ORDERED: BUMETANIDE 1 MG TABLET. PO SCH (09:00)
[2019-11-07] MEDS: INSULIN LISPRO 300 UNITS/3 ML VIAL. SQ SCH ×3 (09:05→18:27)
--- NOTE | 2019-11-07 10:03 | PDOC ---
Subjective: Subjective: Feels better, tolerating liquids, no recurrent bleeding. Says her thinks an EGD tomorrow would be a good idea but she wants to leave right afterwards. Objective: Objective: Dr. Rowe called at 9:50 - thought about sending her home, pt asking to go home, no bleeding, improved Hgb w/ transfusion. D/w Dr. Juarez - could pursue EGD as inpt as discussed w/ pt and staff yesterday or as outpt if pt prefers. Called nurse at 9:55 - now the pt has questions for GI, is undecided about DC. Vital Signs: Vital Signs Date Time Temp Pulse Resp B/P (MAP) Pulse Ox O2 Delivery O2 Flow Rate FiO2 11/07/19 08:58 79 130/47 11/07/19 07:16 98.7 16 92 Room Air 98.7 Labs: Laboratory Tests Test 11/06/19 12:40 11/06/19 18:40 11/06/19 20:21 11/07/19 02:05 Coronavirus (COVID-19)(PCR) Negative Hemoglobin 8.1 g/dL Hematocrit 22.5 % Mean Corpuscular Hemoglobin Concent 36 g/dL Glucose (Fingerstick) 276 mg/dL 83 mg/dL Test 11/07/19 03:13 11/07/19 03:15 11/07/19 08:07 11/07/19 11:23 White Blood Count 9.9 x10^3/uL Red Blood Count 2.37 x10^6/uL Hemoglobin 7.9 g/dL Hematocrit 23.1 % Mean Corpuscular Volume 98 fL Mean Corpuscular Hemoglobin 33 pg Mean Corpuscular Hemoglobin Concent 34 g/dL Red Cell Distribution Width 15.5 % Platelet Count 259 x10^3/uL Sodium Level 137 mmol/L Potassium Level 3.9 mmol/L Chloride Level 101 mmol/L Carbon Dioxide Level 28 mmol/L Anion Gap 8 Blood Urea Nitrogen 21 mg/dL Creatinine 2.5 mg/dL Estimated GFR (Cockcroft-Gault) 18.7 Glucose Level 88 mg/dL Calcium Level 8.2 mg/dL Glucose (Fingerstick) 106 mg/dL 110 mg/dL PE: GEN: NAD LUNGS: CTAB HEART: RRR ABD: NABS, S/ND/NT NEURO/PSYCH: A & O 3 A/P: Hematochezia/melena - resolved Anemia - improved w/ transfusion Coumadin coagulopathy - better CAD, A Fib, s/p TAVR, ESRD on HD - Coumadin on hold COVID-19 negative -- Will plan for EGD tomorrow a.m. Recs for DC and resuming Coumadin pending this. Continue PPI. ?advance diet today Justicifation of Admission Dx: Justifications for Admission: Justification of Admission Dx: Yes Chronic Renal Failure: Impaired Hemostasis DARLINE HERNANDES Nov 07, 2019 10:03
--- NOTE | 2019-11-07 10:43 | PDOC ---
SUBJECTIVE ROS No complaints,states feeling good OBJECTIVE Vital Signs Vital Signs Date Time Temp Pulse Resp B/P (MAP) Pulse Ox O2 Delivery O2 Flow Rate FiO2 11/07/19 08:58 79 130/47 11/07/19 07:16 98.7 16 92 Room Air 98.7 I & 0 Intake and Output 11/07/19 06:59 Intake Total 630 ml Balance 630 ml Intake Oral 600 ml Blood Product IV Normal Saline Flush 30 ml PHYSICAL EXAM Physical Exam GEN: NAD, sitting up in chair HEEN: OM moist NECK: supple CVS: S1S2, RESP: CTA, No Acc. Muscle Use GI: BS + ve, Non Tender, Non Distended : No CVA tenderness, No Suprapubic Tenderness,No chatman NEURO- AXO, grossly normal SKIN No Rash DIAGNOSIS/ASSESSMENT Assessment & Plan ESRD - On HD MWF at [facility] under Dr. Matos Has some RRF, No indication for HD today Hematochezia/melena- per GI Plan for EGD possibly tomorrow per pt Anemia - past bone marrow biopsy in 2018 Hgb 12.4 in 2018 no interval labs in PMC records , recent 7.0 Admitted with Hematochezia, per GI CAD- stable A Fib- stable s/p TAVR GERD - on H2 bette H/o breast cancer COMMENT/RELEVANT DATA Meds Current Medications Medications (Trade) Dose Ordered Sig/Allan Start Time Stop Time Status Last Admin Dose Admin Albumin Human 200 ml @ 200 mls/hr 1X PRN PRN 11/06/19 12:00 11/06/19 17:59 DC Allopurinol (Zyloprim) 100 mg DAILY 11/06/19 09:00 11/07/19 08:57 100 MG Atorvastatin Calcium (Lipitor) 10 mg QHS 11/05/19 21:00 11/06/19 20:59 10 MG Bumetanide (Bumex) 8 mg SuTuThSa 11/07/19 09:00 Famotidine (Pepcid) 20 mg DAILY 11/06/19 09:00 11/06/19 10:11 DC 11/06/19 09:06 20 MG Fluticasone Propionate (Flonase) 2 spray DAILY 11/06/19 09:00 11/07/19 08:57 2 SPRAY Info (PHARMACY MONITORING -- do not chart) 1 each PRN DAILY PRN 11/06/19 12:00 Insulin Glargine (Lantus Syringe) 4 unit HS 11/05/19 21:00 11/06/19 21:00 4 UNIT Insulin Human Lispro (HumaLOG) 4 units TIDWMEALS 11/05/19 17:15 11/07/19 09:05 4 UNITS Levothyroxine Sodium (Synthroid) 137 mcg DAILY06 11/07/19 06:00 11/07/19 08:56 137 MCG Lisinopril (Prinivil) 2.5 mg SuTuThSa 11/07/19 09:00 11/07/19 08:58 2.5 MG Metoprolol Tartrate (Lopressor) 50 mg BID 11/05/19 21:00 11/07/19 08:57 50 MG Multivitamins/ Minerals (I-Jt) 1 tab DAILY 11/06/19 09:00 11/07/19 08:56 1 TAB Ondansetron HCl (Zofran) 4 mg PRN Q6HRS PRN 11/05/19 20:45 11/05/19 21:24 4 MG Pantoprazole Sodium (Protonix) 40 mg DAILYAC 11/06/19 07:30 11/07/19 08:58 40 MG Phytonadione (Vitamin K Ampule) 5 mg 1X ONCE 11/05/19 17:00 11/05/19 17:10 DC 11/05/19 17:38 5 MG Sodium Chloride 1,000 ml @ 400 mls/hr Q2H30M PRN 11/06/19 12:00 11/06/19 19:00 DC Sodium Chloride (Normal Saline Flush) 10 ml 1X PRN PRN 11/06/19 12:00 11/06/19 19:00 DC Trazodone HCl (Desyrel) 50 mg HS 11/05/19 21:00 11/06/19 20:59 50 MG Vitamin B Complex/ Vitamin C (Alia-Jt) 1 tab DAILY 11/06/19 09:00 11/07/19 08:58 1 TAB Lab Laboratory Tests Test 11/06/19 11:18 11/06/19 12:40 11/06/19 18:40 11/06/19 20:21 Glucose (Fingerstick) 133 mg/dL (70-99) 276 mg/dL (70-99) Coronavirus (COVID-19)(PCR) Negative (NEGATIVE) Hemoglobin 8.1 g/dL (12.0-15.5) Hematocrit 22.5 % (36.0-47.0) Mean Corpuscular Hemoglobin Concent 36 g/dL (31-37) Test 11/07/19 02:05 11/07/19 03:13 11/07/19 03:15 11/07/19 08:07 Glucose (Fingerstick) 83 mg/dL (70-99) 106 mg/dL (70-99) White Blood Count 9.9 x10^3/uL (4.0-11.0) Red Blood Count 2.37 x10^6/uL (3.50-5.40) Hemoglobin 7.9 g/dL (12.0-15.5) Hematocrit 23.1 % (36.0-47.0) Mean Corpuscular Volume 98 fL (79-100) Mean Corpuscular Hemoglobin 33 pg (25-35) Mean Corpuscular Hemoglobin Concent 34 g/dL (31-37) Red Cell Distribution Width 15.5 % (11.5-14.5) Platelet Count 259 x10^3/uL (140-400) Sodium Level 137 mmol/L (136-145) Potassium Level 3.9 mmol/L (3.5-5.1) Chloride Level 101 mmol/L (98-107) Carbon Dioxide Level 28 mmol/L (21-32) Anion Gap 8 (6-14) Blood Urea Nitrogen 21 mg/dL (7-20) Creatinine 2.5 mg/dL (0.6-1.0) Estimated GFR (Cockcroft-Gault) 18.7 Glucose Level 88 mg/dL (70-99) Calcium Level 8.2 mg/dL (8.5-10.1) Results All relevant outside records, renal labs, imaging studies, telemetry/EKG's were reviewed. Justicifation of Admission Dx: Justifications for Admission: Justification of Admission Dx: Yes Chronic Renal Failure: Impaired Hemostasis SOPHIA CARRIZALES MD Nov 07, 2019 10:43
[2019-11-07 11:10] VITALS: BP 126/38
--- NOTE | 2019-11-07 11:57 | PDOC ---
[employer] PROGRESS NOTE Chief Complaint Chief Complaint GI bleed Over anticoagulation Chronic anticoagulation; end-stage renal disease, she is on dialysis; anemia, hypertension; polypharmacy; hyperlipidemia; coronary artery disease; angina; insomnia; edema; allergic rhinitis; diabetes; hypothyroidism; History of Present Illness History of Present Illness 11-07-2019 Patient seen and examined Her hemoglobin is up to 7.9 She does not show any signs of active bleeding Called and spoke with GI Plan is for EGD tomorrow 11/06/2019 Patient seen and examined She seems weak and somewhat depressed but stable Chart reviewed Discussed with RN Her hemoglobin is down to 7 I ordered 1 unit of packed red blood cells GI consultation reviewed appreciate their and Vitals/I&O Vitals/I&O: Vital Signs Date Time Temp Pulse Resp B/P (MAP) Pulse Ox O2 Delivery O2 Flow Rate FiO2 11/07/19 11:10 97.4 67 16 126/38 (67) 94 Room Air 97.4 I & O 11/06/19 11/06/19 11/07/19 15:00 23:00 07:00 Intake Total 300 ml 330 ml 0 ml Balance 300 ml 330 ml 0 ml Physical Exam General: Alert, Oriented X3 Heart: Regular rate, Normal S1 Lungs: Clear Abdomen: Normal bowel sounds, Soft Extremities: No clubbing, No cyanosis Skin: No rashes, No breakdown Labs Labs: Laboratory Tests Test 11/06/19 12:40 11/06/19 18:40 11/06/19 20:21 11/07/19 02:05 Coronavirus (COVID-19)(PCR) Negative (NEGATIVE) Hemoglobin 8.1 g/dL (12.0-15.5) Hematocrit 22.5 % (36.0-47.0) Mean Corpuscular Hemoglobin Concent 36 g/dL (31-37) Glucose (Fingerstick) 276 mg/dL (70-99) 83 mg/dL (70-99) Test 11/07/19 03:13 11/07/19 03:15 11/07/19 08:07 11/07/19 11:23 White Blood Count 9.9 x10^3/uL (4.0-11.0) Red Blood Count 2.37 x10^6/uL (3.50-5.40) Hemoglobin 7.9 g/dL (12.0-15.5) Hematocrit 23.1 % (36.0-47.0) Mean Corpuscular Volume 98 fL (79-100) Mean Corpuscular Hemoglobin 33 pg (25-35) Mean Corpuscular Hemoglobin Concent 34 g/dL (31-37) Red Cell Distribution Width 15.5 % (11.5-14.5) Platelet Count 259 x10^3/uL (140-400) Sodium Level 137 mmol/L (136-145) Potassium Level 3.9 mmol/L (3.5-5.1) Chloride Level 101 mmol/L (98-107) Carbon Dioxide Level 28 mmol/L (21-32) Anion Gap 8 (6-14) Blood Urea Nitrogen 21 mg/dL (7-20) Creatinine 2.5 mg/dL (0.6-1.0) Estimated GFR (Cockcroft-Gault) 18.7 Glucose Level 88 mg/dL (70-99) Calcium Level 8.2 mg/dL (8.5-10.1) Glucose (Fingerstick) 106 mg/dL (70-99) 110 mg/dL (70-99) Assessment and Plan Assessmemt and Plan GI bleed Over anticoagulation Chronic anticoagulation; end-stage renal disease, she is on dialysis; anemia, hypertension; polypharmacy; hyperlipidemia; coronary artery disease; angina; insomnia; edema; allergic rhinitis; diabetes; hypothyroidism; Plan EGD tomorrow Trend hemoglobin Hold her Coumadin for now She is going for dialysis this afternoon Proton pump inhibitors Home meds DVT prophylaxis Full code Prognosis guarded long-term Comment Review of Relevant I have reviewed the following items bakari (where applicable) has been applied. Medications: Current Medications Medications (Trade) Dose Ordered Sig/Allan Route PRN Reason Start Time Stop Time Status Last Admin Dose Admin Lisinopril (Prinivil) 2.5 mg SuTuThSa PO 11/07/19 09:00 11/07/19 08:58 Levothyroxine Sodium (Synthroid) 137 mcg DAILY06 PO 11/07/19 06:00 11/07/19 08:56 Justicifation of Admission Dx: Justifications for Admission: Justification of Admission Dx: Yes Chronic Renal Failure: Impaired Hemostasis WALTER DYER III DO Nov 07, 2019 11:57
[2019-11-07 15:09] VITALS: BP 143/47
[2019-11-07] MEDS: IV NORMAL SALINE 1000ML BAG 1,000 ML IV SCH (15:30)
--- NOTE | 2019-11-07 16:42 | NUR ---
SW following. Spoke with RN and CM. Reviewed chart. Pt not ready for discharge per Dr. Rowe. Working to advance pt's diet. Pt has an EGD scheduled for tomorrow, 11/08/2019. Pt to discharge home with spouse when stable. SW to continue following.
[2019-11-07 19:00] VITALS: BP 134/46
[2019-11-07] MEDS: traZODone 50 MG TABLET. PO SCH (20:42)
[2019-11-07] MEDS: ATORVASTATIN CALCIUM 10 MG TABLET. PO SCH (20:42)
[2019-11-07] MEDS: INSULIN GLARGINE SYRINGE. SQ SCH (20:54)
[2019-11-07 23:00] VITALS: BP 128/48
[2019-11-08 03:00] VITALS: BP 119/43
[2019-11-08] MEDS ORDERED: DEXTROSE 50% 25 GM / 50ML DISP.SYRIN. IV ONE ×2 (03:19→03:30)
[2019-11-08] MEDS: LEVOTHYROXINE 137 MCG TABLET PO SCH (04:06)
[2019-11-08 05:48] LABS: HEMOGLOBIN 8.2 g/dL (12.0-15.5)
[2019-11-08] MEDS ORDERED: IV RINGERS,LACTATED 1000ML 1,000 ML IV ONE (06:30)
[2019-11-08] MEDS ORDERED: IV RINGERS,LACTATED 1000ML 1,000 ML IV SCH (07:00)
[2019-11-08] MEDS: PANTOPRAZOLE 40 MG TABLET.DR. PO SCH (07:30)
[2019-11-08] MEDS ORDERED: IV NORMAL SALINE 1000ML BAG 1,000 ML IV ONE (08:00)
[2019-11-08] MEDS: INSULIN LISPRO 300 UNITS/3 ML VIAL. SQ SCH ×2 (08:00→12:00)
[2019-11-08] MEDS ORDERED: PROPOFOL 10 MG/ML (20ML) VIAL. IV ONE (08:31)
[2019-11-08] MEDS ORDERED: LIDOCAINE 2% PF 5 ML VIAL. ONE (08:31)
[2019-11-08] MEDS ORDERED: IV NORMAL SALINE 1000ML BAG 1,000 ML IV PRN ×2 (08:43)
[2019-11-08] MEDS ORDERED: DIALYSIS PATIENT. MC PRN (08:45)
[2019-11-08] MEDS ORDERED: ALBUMIN HUMAN 25% 200 ML IV PRN (08:45)
--- NOTE | 2019-11-08 08:53 | PDOC4 ---
Operative Note Operative Note EGD Meds propofol per anesthesia Pre-op dx melena/chronc illnes anemia Post-op dx non-erosive gastritis Plan release home consider o/p colonoscopy if bleeding resumes and/or worsens KHRIS SUTTON MD Nov 08, 2019 08:53
[2019-11-08] MEDS: METOPROLOL TART IMMED RELEASE 50 MG TABLET. PO SCH (09:00)
[2019-11-08] MEDS: FLUTICASONE 50MCG/NASAL SPRAY 16GM BOTTLE. NS SCH (09:00)
[2019-11-08] MEDS: FOLIC/VIT B COMP W-C (RENAL) TABLET. PO SCH (09:00)
[2019-11-08] MEDS: MULTIVITAMIN I-VITE TABLET. PO SCH (09:00)
[2019-11-08] MEDS: ALLOPURINOL 100 MG TABLET. PO SCH (09:00)
[2019-11-08] MEDS ORDERED: CETIRIZINE HCL 10 MG TABLET. PO SCH (09:00)
[2019-11-08 09:05] VITALS: BP 168/69
--- NOTE | 2019-11-08 10:40 | PDOC ---
SUBJECTIVE ROS S/P EGD this am , seen on HD , No complaints OBJECTIVE Vital Signs Vital Signs Date Time Temp Pulse Resp B/P (MAP) Pulse Ox O2 Delivery O2 Flow Rate FiO2 11/08/19 09:10 Room Air 11/08/19 09:05 97.4 69 18 168/69 93 97.4 I & 0 Intake and Output 11/08/19 07:00 Intake Total 1200 ml Balance 1200 ml Intake Oral 1200 ml PHYSICAL EXAM Physical Exam GEN: NAD, sitting up in chair HEEN: OM moist NECK: supple CVS: S1S2, RESP: CTA, No Acc. Muscle Use GI: BS + ve, Non Tender, Non Distended : No CVA tenderness, No Suprapubic Tenderness,No chatman NEURO- AXO, grossly normal SKIN No Rash DIAGNOSIS/ASSESSMENT Assessment & Plan ESRD - On HD MWF at [facility] under Dr. Matos Has some RRF, Seen on HD, tolerating well, continue as ordered, Kaveh Snider Hematochezia/melena- per GI EGD this am non-erosive gastritis, Colonoscopy as OP Anemia - past bone marrow biopsy in 2018 Hgb 12.4 in 2018 no interval labs in PMC records , recent 7.0 Admitted with Hematochezia, per GI CAD- stable A Fib- stable s/p TAVR GERD - on H2 bette H/o breast cancer COMMENT/RELEVANT DATA Meds Current Medications Medications (Trade) Dose Ordered Sig/Allan Start Time Stop Time Status Last Admin Dose Admin Albumin Human 200 ml @ 200 mls/hr 1X PRN PRN 11/08/19 08:45 11/08/19 14:44 Allopurinol (Zyloprim) 100 mg DAILY 11/06/19 09:00 11/07/19 08:57 100 MG Atorvastatin Calcium (Lipitor) 10 mg QHS 11/05/19 21:00 11/07/19 20:42 10 MG Bumetanide (Bumex) 8 mg SuTuThSa 11/07/19 09:00 11/07/19 12:59 8 MG Cetirizine HCl (ZyrTEC) 10 mg DAILY 11/08/19 09:00 Dextrose (Dextrose 50%-Water Syringe) 25 gm STK-MED ONCE 11/08/19 03:30 11/08/19 08:35 DC Famotidine (Pepcid) 20 mg DAILY 11/06/19 09:00 11/06/19 10:11 DC 11/06/19 09:06 20 MG Fluticasone Propionate (Flonase) 2 spray DAILY 11/06/19 09:00 11/07/19 08:57 2 SPRAY Info (PHARMACY MONITORING -- do not chart) 1 each PRN DAILY PRN 11/08/19 08:45 Insulin Glargine (Lantus Syringe) 4 unit HS 11/05/19 21:00 11/07/19 20:54 4 UNIT Insulin Human Lispro (HumaLOG) 4 units TIDWMEALS 11/05/19 17:15 11/07/19 18:27 4 UNITS Levothyroxine Sodium (Synthroid) 137 mcg DAILY06 11/07/19 06:00 11/07/19 08:56 137 MCG Lidocaine HCl (Lidocaine Pf 2% Vial) 5 ml STK-MED ONCE 11/08/19 08:31 11/08/19 08:32 DC Lisinopril (Prinivil) 2.5 mg SuTuThSa 11/07/19 09:00 11/07/19 08:58 2.5 MG Metoprolol Tartrate (Lopressor) 50 mg BID 11/05/19 21:00 11/07/19 20:55 50 MG Multivitamins/ Minerals (I-Jt) 1 tab DAILY 11/06/19 09:00 11/07/19 08:56 1 TAB Ondansetron HCl (Zofran) 4 mg PRN Q6HRS PRN 11/05/19 20:45 11/05/19 21:24 4 MG Pantoprazole Sodium (Protonix) 40 mg DAILYAC 11/06/19 07:30 11/07/19 08:58 40 MG Phytonadione (Vitamin K Ampule) 5 mg 1X ONCE 11/05/19 17:00 11/05/19 17:10 DC 11/05/19 17:38 5 MG Propofol (Diprivan) 200 mg STK-MED ONCE 11/08/19 08:31 11/08/19 08:32 DC Ringer's Solution 1,000 ml @ 75 mls/hr 1X ONCE 11/08/19 06:30 11/08/19 19:49 11/08/19 07:48 75 MLS/HR Sodium Chloride 1,000 ml @ 400 mls/hr Q2H30M PRN 11/08/19 08:43 11/08/19 20:42 Sodium Chloride (Normal Saline Flush) 10 ml 1X PRN PRN 11/06/19 12:00 11/06/19 19:00 DC Trazodone HCl (Desyrel) 50 mg HS 11/05/19 21:00 11/07/19 20:42 50 MG Vitamin B Complex/ Vitamin C (Alia-Jt) 1 tab DAILY 11/06/19 09:00 11/07/19 08:58 1 TAB Lab Laboratory Tests Test 11/07/19 11:23 11/07/19 16:54 11/07/19 20:39 11/08/19 03:18 Glucose (Fingerstick) 110 mg/dL (70-99) 117 mg/dL (70-99) 124 mg/dL (70-99) 44 mg/dL (70-99) Test 11/08/19 03:45 11/08/19 04:30 11/08/19 07:17 Glucose (Fingerstick) 180 mg/dL (70-99) 190 mg/dL (70-99) Hemoglobin 8.2 g/dL (12.0-15.5) Hematocrit 24.0 % (36.0-47.0) Mean Corpuscular Hemoglobin Concent 34 g/dL (31-37) Results All relevant outside records, renal labs, imaging studies, telemetry/EKG's were reviewed. Justicifation of Admission Dx: Justifications for Admission: Justification of Admission Dx: Yes Chronic Renal Failure: Impaired Hemostasis SOPHIA CARRIZALES MD Nov 08, 2019 10:40
[2019-11-08] MEDS: IV NORMAL SALINE 1000ML BAG 1,000 ML IV SCH (11:30)
--- NOTE | 2019-11-08 11:44 | SNU/HH DC ---
DISCHARGE WITH HOME HEALTH DISCHARGE INFORMATION: Condition on Discharge: Stable CODE STATUS: Code Status: Full HOME HEALTH: Face to Face: I certify this patient is under my care and that I, or a nurse practitioner or physician's college sports assistant working with me, had a face to face encounter that meets the physician face to face encounter requirements with this patient on []. Medical Complications: Other (esrd) Long-Term For: Assess & Educate Safety RN For Eval/Treatment: Yes Physical Therapy For: Evalulation/Treatment Speech Language Pathology For: Evaluation/Treatment Home Health Aide For: Self-care COMMERCIAL FRONT LOAD DRIVER For: Community Resources Pt Meets Homebound Status: Poor coordination w/ amb., Extreme weakness w/ amb. POST DISCHARGE ORDERS: Activity Instructions for Disc: Activity as tolerated Weight Bearing Status after Di: No restrictions Bathing Instructions: Shower-keep dressing dry DIET AFTER DISCHARGE: Renal Wound/Incision Care: Keep wound/cast CDI TREATMENT/EQUIPMENT ORDERS: Adaptive Equipment Issued: None CERTIFICATION STATEMENT: Certification Statement: Certification Statement: Based on the above finding, I certify that this patient is confined to the home and needs intermittent [facility] care, physical therapy and/or speech therapy, or continues to need occupational therapy.~ This patient is under my care, and I have initiated the establishment of the plan of care.~ This patient will be followed by myself or a community physician who will periodically review the plan of care. Home Meds Reported Medications Levothyroxine Sodium (LEVOTHYROXINE SODIUM) 137 Mcg Tablet, 137 MCG PO DAILY06 for THYROID SUPPLEMENT, #30 TAB 0 Refills 11/06/19 Lisinopril (LISINOPRIL) 2.5 Mg Tablet, 2.5 MG PO SuTuThSa for FOR HYPERTENSION, #30 TAB 0 Refills 11/05/19 Metoprolol Tartrate (METOPROLOL TARTRATE) 50 Mg Tablet, 50 MG PO BID for FOR HYPERTENSION, #60 TAB 0 Refills 11/05/19 Folic Acid/Vitamin B Comp W-C (CHRISTY-MARIO ALBERTO TABLET) 0.8 Mg Tablet, 0.8 MG PO MoWeFr for dialysis, TAB 11/14/17 Bumetanide (BUMETANIDE) 1 Mg Tablet, 8 TAB PO SuTuThSa for hypertension, #90 TAB 3 Refills 11/14/17 Vit A,C & E/Lutein/Minerals (OCUVITE TABLET) 1 Each Tablet, 1 EACH PO DAILY, TAB 01/05/17 Warfarin Sodium (COUMADIN) 1 Mg Tablet, 1.5 TAB PO QODAY, #30 TAB 5 Refills 01/05/17 Warfarin Sodium (WARFARIN SODIUM) 2 Mg Tablet, 2.5 MG PO DAILY for afib, TAB 07/05/16 Insulin Aspart (NOVOLOG) 100 Unit/1 Ml Cartridge, 4 UNIT SQ TIDAC for diabetes, EACH 07/05/16 Vitamin B Complex (VITAMIN B COMPLEX) 1 Each Capsule, 1 EACH PO 07/05/16 Trazodone Hcl (TRAZODONE HCL) 50 Mg Tablet, 50 MG PO HS, TAB 07/05/16 Pravastatin Sodium (PRAVASTATIN SODIUM) 40 Mg Tablet, 40 MG PO HS, TAB 07/05/16 Famotidine (FAMOTIDINE) 20 Mg Tablet, 20 MG PO BID, TAB 07/05/16 Nitroglycerin (NITROSTAT) 0.4 Mg Tab.subl, 0.4 MG SL PRN Q5MIN PRN for CHEST PAIN, BOTTLE 07/05/16 Insulin Glargine,Hum.rec.anlog (LANTUS) 100 Unit/1 Ml Vial, 4 UNIT SQ HS for diabetes, VIAL 07/05/16 Gluc 2KCL/Chondr/Ashley Hy/Hy Ac (GLUCOSAMINE & CHONDROITIN CAP) 1 Each Capsule, 1 EACH PO BID 07/05/16 Glucagon,Human Recombinant (GLUCAGON EMERGENCY KIT) 1 Mg Kit, 1 MG IM, KIT 07/05/16 Folic Acid (FOLIC ACID) 1 Mg Tablet, 1 MG PO DAILY, TAB 07/05/16 Fluticasone Propionate (Flonase Allergy Relief) 9.9 Ml [place].susp, 2 SPRAYS NS DAILY, BOTTLE 07/05/16 Aspirin (ASPIR 81) 81 Mg Tablet.dr, 1 TAB PO BID, #30 TAB 5 Refills 07/05/16 Allopurinol (ALLOPURINOL) 100 Mg Tablet, 1 TAB PO DAILY, #30 TAB 5 Refills 07/05/16 Discontinued Reported Medications Ubidecarenone (Coenzyme Q-10) 200 Mg Capsule, 200 MG PO DAILY, CAP 01/05/17 Warfarin Sodium (COUMADIN) 1 Mg Tablet, 2 TAB PO QODAY, #30 TAB 5 Refills start 11/15/17 01/05/17 Insulin Aspart (NOVOLOG) 100 Unit/1 Ml Cartridge, 5 UNIT SQ DAILYWSUP, EACH 07/05/16 Insulin Aspart (NOVOLOG) 100 Unit/1 Ml Cartridge, 5 UNIT SQ DAILYWLUN, EACH 07/05/16 Metoclopramide Hcl (REGLAN) 10 Mg Tablet, 10 MG PO QIDACHS PRN for NAUSEA, TAB 0 Refills 07/05/16 WALTER DYER III DO Nov 08, 2019 11:44
--- NOTE | 2019-11-08 12:38 | DS ---
DATE OF DISCHARGE: ADMISSION DIAGNOSIS: Gastrointestinal bleed. DISCHARGE DIAGNOSES: Resolving gastrointestinal bleed and end-stage renal disease, on dialysis. CONSULTATIONS: GI. PROCEDURES: EGD which showed nonerosive gastritis. HOSPITAL COURSE: The patient is a pleasant elderly female who presented with a GI bleed. Her hemoglobin dropped close to 7. We did transfuse her. This morning, she went for an EGD, which showed some nonerosive gastritis. I saw her while she is on dialysis. This morning, she looks great. She wants to go home. Her hemoglobin is stable at 8.2. I discussed the case with case management. We are going to discharge and have her follow up with GI. They are considering an outpatient colonoscopy. DISPOSITION: Home. ACTIVITY: As tolerated. DIET: Renal. MEDICATIONS: Please see the MRAD. TOTAL TIME: 34 minutes. WALTER DYER DO DR: KARLA/deb JOB#: [id number] / [id number]
--- NOTE | 2019-11-08 14:30 | NUR ---
Pt discharged home with . Discharge instructions reviewed with patient and . Verbalized understanding. EGD done this morning and no interventions needed. Pt had dialysis today and will resume at [facility] on monday.
--- NOTE | 2019-11-08 16:18 | NUR ---
SW following. Spoke with RN and reviewed chart. Coordinated care with Dr. Rowe. Pt to discharge today on room air and oral medications. No further SW needs.
== END 2019-11-08 14:25 | disposition home or self-care (01) | DRG 377 ==
LOC: 6 SOUTH 16:00
PROVIDERS: ADMIT Internal Medicine; ATTEND Internal Medicine
PROC: 30233N1 Transfusion of Nonautologous Red Blood Cells into Peripheral Vein, Percutaneous Approach (ICD-10-PCS; principal; 2019-11-06)
PROC: 5A1D70Z Performance of Urinary Filtration, Intermittent, Less than 6 Hours Per Day (ICD-10-PCS; 2019-11-06)
PROC: 5A1D70Z Performance of Urinary Filtration, Intermittent, Less than 6 Hours Per Day (ICD-10-PCS; 2019-11-08)
PROC: 0DJ08ZZ Inspection of Upper Intestinal Tract, Via Natural or Artificial Opening Endoscopic (ICD-10-PCS; 2019-11-08)
DX: K29.71 Gastritis, unspecified, with bleeding (principal); N18.6 End stage renal disease; I13.2 Hypertensive heart and chronic kidney disease with heart failure and with stage 5 chronic kidney disease, or end stage renal disease; D50.0 Iron deficiency anemia secondary to blood loss (chronic); D72.1 Eosinophilia; D75.89 Other specified diseases of blood and blood-forming organs; E03.9 Hypothyroidism, unspecified; E11.22 Type 2 diabetes mellitus with diabetic chronic kidney disease; E78.5 Hyperlipidemia, unspecified; G47.00 Insomnia, unspecified; G62.9 Polyneuropathy, unspecified; I48.91 Unspecified atrial fibrillation; I50.9 Heart failure, unspecified; J30.9 Allergic rhinitis, unspecified; R79.1 Abnormal coagulation profile; M10.9 Gout, unspecified; T45.515A Adverse effect of anticoagulants, initial encounter; Z20.828 Contact with and (suspected) exposure to other viral communicable diseases; Z79.01 Long term (current) use of anticoagulants; Z82.49 Family history of ischemic heart disease and other diseases of the circulatory system; Z86.73 Personal history of transient ischemic attack (TIA), and cerebral infarction without residual deficits; Z90.710 Acquired absence of both cervix and uterus; Z95.1 Presence of aortocoronary bypass graft; Z95.2 Presence of prosthetic heart valve; Z95.5 Presence of coronary angioplasty implant and graft; Z99.2 Dependence on renal dialysis; K21.9 Gastro-esophageal reflux disease without esophagitis; Z79.899 Other long term (current) drug therapy; Z88.8 Allergy status to other drugs, medicaments and biological substances; I25.10 Atherosclerotic heart disease of native coronary artery without angina pectoris; Z88.0 Allergy status to penicillin; Z88.2 Allergy status to sulfonamides
CPT/HCPCS: 36415; 43235; 80048; 82962; 85007; 85014; 85018; 85025; 85027; 85610; 86850; 86900; 86901; 86920; 87340; J1815; J2405; J2704; J3430; J7030; J7120; P9016; G0378; U0003-CS